=== PATIENT | female | born 1940 | race Caucasian/White ===

== ENCOUNTER 2020-11-25 13:20 | Emergency (ER) | payer MEDICARE, SELFPAY ==
--- NOTE | 2020-11-25 | ECG_ITS ---
Test Reason : DIZZINESS Blood Pressure : / mmHG Vent. Rate : 073 BPM Atrial Rate : 073 BPM P-R Int : 118 ms QRS Dur : 076 ms QT Int : 414 ms P-R-T Axes : -18 001 050 degrees QTc Int : 456 ms Normal sinus rhythm Nonspecific ST and T wave abnormality Abnormal ECG No previous ECGs available Referred By: Generic ED Physician Electronically Signed By:Alvin Arce
--- NOTE | ~2020-11-25 | CT_ITS ---
EXAMINATION: CT ABDOMEN AND PELVIS WITH CONTRAST CLINICAL INFORMATION: ausea, vomitting, diarrhea .SOB? Colitis? COMPARISON: None TECHNIQUE: Multidetector volumetric images were obtained from the superior aspect of the liver through the pubic symphysis following administration 85 mL of Omnipaque 350 intravenous contrast. Sagittal and coronal reformatted images were obtained on the technologist's workstation. Oral contrast: No This CT examination was performed using dose optimization techniques as appropriate, variously including the following: *Automated exposure control *Adjustment of mA and/or kV according to patient size (this includes techniques or standardized protocols for targeted exams where dose is matched to indication/reason for exam; i.e. extremities or head) *Use of iterative reconstruction technique DLP: 121 mGy-cm FINDINGS: LUNG BASES: The visualized lung bases are unremarkable. LIVER, GALLBLADDER, AND BILIARY TREE: The liver is normal in size, shape, and attenuation. Some tiny millimeter-sized hypodensities are seen in the liver most likely cysts but indeterminate because of their small size. No suspicious focal hepatic lesion or biliary ductal dilatation is present. The gallbladder is unremarkable with no evidence of radiopaque gallstones, gallbladder wall thickening, or obvious pericholecystic inflammatory changes. PANCREAS: Unremarkable. SPLEEN: Unremarkable. ADRENAL GLANDS: Unremarkable. KIDNEYS AND URETERS: The kidneys are normal in size, shape, and attenuation. Parapelvic cysts are noted in the lower pole the left kidney. No solid renal masses are seen. No hydronephrosis, hydroureter, or calculi seen. No perinephric stranding. BLADDER: Unremarkable. GASTROINTESTINAL TRACT: The bowel is grossly abnormal with edematous changes present in the cecum and right colon as well as thickening of distal ileal loops. Proximal jejunum appears normal. No evidence of bowel obstruction. No pneumatosis seen. No perienteric fluid collections or abscesses. No free intraperitoneal air ABDOMINAL WALL: No significant hernia is appreciated. LYMPH NODES: No retroperitoneal lymphadenopathy. VASCULAR: Severe atherosclerotic changes are present in the aorta and iliofemoral vessels. In the immediate infrarenal aorta, there is exuberant calcification seen which produces at least a 50% narrowing in the aortic lumen. No evidence of occlusion or emboli. The SMA, celiac and TAIWO are patent. Some mild eccentric plaque present in the SMA after its origin without stenosis. The portal venous system is patent. PELVIC VISCERA: Normal anteverted uterus is present. An abnormal adnexal mass is not seen. A small amount of free intraperitoneal fluid present in the cul-de-sac on the right. OSSEOUS STRUCTURES: Unremarkable. CT/CT abdomen pelvis w con IMPRESSION: 1. Edematous cecum and distal ileum consistent with enterocolitis. 2. Incidental note made of tiny probable hepatic cysts, parapelvic left renal cysts and severe aortic atherosclerotic changes.
--- NOTE | ~2020-11-25 | CT_ITS ---
EXAMINATION: CT ANGIOGRAM OF THE CHEST WITH AND WITHOUT CONTRAST (CT PULMONARY ANGIOGRAM FOR PE) CLINICAL INFORMATION: Reason for Exam positive troponin and vomiting. pmh of CA. PE? COMPARISON: None TECHNIQUE: Prior to contrast administration, noncontrast localization images were obtained. Subsequently, multidetector volumetric imaging was performed from the thoracic inlet to below the diaphragms following the administration of 85 mL Omnipaque 350 intravenous contrast. No contrast reaction reported Sagittal, coronal, and MIP oblique sagittal reformatted images were obtained on the CT workstation, uploaded to PACS, and reviewed. This CT examination was performed using dose optimization techniques as appropriate, variously including the following: *Automated exposure control *Adjustment of mA and/or kV according to patient size (this includes techniques or standardized protocols for targeted exams where dose is matched to indication/reason for exam; i.e. extremities or head) *Use of iterative reconstruction technique Total exam dose-length product 207 mGy-cm FINDINGS: QUALITY OF STUDY/CONTRAST BOLUS: Satisfactory. PULMONARY ARTERIES: No central or segmental pulmonary emboli. THORACIC AORTA: Calcific atherosclerotic changes present in the aorta without evidence of aneurysm or dissection. A two-vessel branching pattern is present with common origin to the innominate and left carotid. The great vessels are widely patent. Only a small portion of the abdominal aorta is visualized but there are extensive calcifications seen narrowing the lumen of the abdominal aorta just below the level of the takeoff of the right renal artery. LUNG: Multiple calcified granulomas are seen in the lungs. No focal consolidation, worrisome nodules or masses. PLEURA: No pleural effusion or pneumothorax. MEDIASTINUM: Normal heart size. The thyroid is small and heterogeneous. No pericardial effusion. No hilar or mediastinal lymphadenopathy. No evidence of septal bowing or right heart strain. CHEST WALL/AXILLA: No axillary or internal mammary lymphadenopathy. A left chest wall jugular port is present with its tip in the right atrium. The jugular vein and subclavian vein appear scarred around the catheter. OSSEOUS STRUCTURES: No acute or suspicious osseous abnormality. UPPER ABDOMEN: Unremarkable. No reflux of contrast into the hepatic veins to suggest elevated right heart pressures. CT/CT angio chest PE protocol IMPRESSION: 1. No evidence of pulmonary emboli 2. Incidental note made of calcified pulmonary granulomas, small heterogeneous thyroid, left chest wall port. VTE: negative
--- NOTE | ~2020-11-25 | XR_ITS ---
EXAMINATION: XR CHEST CLINICAL INFORMATION: port type COMPARISON: None TECHNIQUE: Frontal view of the chest was obtained. FINDINGS: The cardiac and mediastinal contours are normal. There may be a small calcified nodules in the right lateral midlung. There is question of small nodules at the left lung base overlying the cardiophrenic angle and left hemidiaphragm. The lungs are otherwise clear. There is no pleural effusion or pneumothorax. There is a left jugular port with tip projecting over the cavoatrial junction. This may be a dignity Port-A-Cath made by [employer]. Bony structures are unremarkable. XR/XR chest 1V IMPRESSION: Question pulmonary nodules. Left jugular port with tip projecting over the cavoatrial junction.
[2020-11-25 14:45] VITALS: BP 182/74; PULSE 76; RESP 18; TEMP 36.2; O2SAT 98; BMI 17.2
--- NOTE | 2020-11-25 16:06 | ED.GENADULT ---
HPI - General Adult General Chief complaint: Weakness Stated complaint: vomiting Time Seen by Provider: 11/25/20 15:58 Source: patient Mode of arrival: ambulatory Limitations: no limitations History of Present Illness HPI narrative: Patient presents to the ED for abdominal pain nausea and diarrhea the past 4 days. Patient has known history of stomach cancer and is being started on oral chemotherapy from [place]. Granddaughter states the patient always has abdominal pain. Related Data Previous Rx's Medication Instructions Recorded ciprofloxacin HCl 500 mg tablet 500 mg PO Q12H 7 Days #14 tab 11/25/20 metronidazole 500 mg tablet 500 mg PO Q12H 7 Days #14 tab 11/25/20 Allergies Allergy/AdvReac Type Severity Reaction Status Date / Time Penicillins Allergy Unknown Verified 11/25/20 15:00 Review of Systems Review of Systems: Yes all other systems are reviewed and are negative Constitutional: Constitutional: Reports as per HPI and Reports no additional constitutional complaints Eyes: Eyes: Reports as per HPI and Reports no additional eye complaints ENT: Reports system reviewed and no additional complaints, except as documented and Reports as per HPI Respiratory: Respiratory: Reports as per HPI and Reports no additional respiratory complaints Gastrointestinal: Gastrointestinal: Reports as per HPI, Reports no additional gastrointestinal complaints, Reports abdominal pain, Reports diarrhea and Reports nausea Genitourinary: Genitourinary: Reports no additional female genitourinary complaints and Reports as per HPI Musculoskeletal: Musculoskeletal: Reports no additional musculoskeletal complaints and Reports as per HPI Neurologic: Reports system reviewed and no additional complaints, except as documented and Reports as per HPI Comments: History of dementia as per granddaughter Psychiatric: Psychiatric: Reports no additional psychiatric complaints and Reports as per HPI [facility] Past Medical History Medical History (Updated 11/25/20 @ 22:26 by JOSUE Bryant) Cancer of stomach Hypertension Social History Social History Advance Directives: No Advance Directives Information Provided: Yes Physical Exam Vital Signs: Vital Signs: Last Vital Signs Temp 97.1 F 11/25/20 14:45 Pulse 73 11/25/20 22:21 Resp 16 11/25/20 22:21 BP 159/63 H 11/25/20 22:21 Pulse Ox 98 11/25/20 22:21 Body Mass Index 17.2 Const: General: cooperative, healthy appearing, comfortable, no acute distress, well developed, alert, awake and Physically active Orientation/consciousness: patient oriented x3 HENMT: Head: Yes normal to inspection, Yes No palpable skull fracture present, Yes normocephalic and Yes atraumatic Eyes: General: appearance normal, both eyes and all related structures Neck: Neck: Yes normal visual inspection, Yes full ROM, Yes no lymphadenopathy, Yes no meningeal signs, Yes trachea midline, Yes supple and No tender Chest: Chest palpation & inspection: normal inspection of the chest and normal palpation of entire chest wall Resp: Effort & Inspection: normal respiratory effort and able to speak in complete sentences Auscultation: clear to auscultation bilaterally Cardio: Jugular venous distension: no JVD Heart sounds: S1 normal heart sound present and S2 normal heart sound present GI: Inspection: Yes normal to inspection and No abdominal wall ecchymosis Palpation (GI): Soft to palpation, not firm, Tenderness to palpation present (GI) (Mild), no guarding and not rigid : General: No CVA tenderness and Yes no CVA tenderness Back/Spine/Pelvis: Back: no CVA tenderness, No CVA tenderness and No back tenderness Skin: General skin exam: no rashes or lesions noted and elasticity normal Neuro: General: patient oriented x3, gait normal, no meningeal signs and CN's II-XI intact bilaterally Cranial nerves: Yes CN's II-XII intact bilaterally Extrem: General: Yes normal to inspection and Yes full ROM Course Course Course Narrative: Patient will have labs medical workup including EKG and troponin. Most likely patient will be sent for CT scan. Reevaluation(s) Reevaluation #1: Patient troponin came back positive. Will add chest CT due to positive troponin and history of cancer to rule out PE. Patient denies any chest pain. Repeat troponin ordered. EKG negative for STEMI Time: 18:17 Reevaluation #2: Patient second troponin did not increase by 50%, so Patient is not any cardiac event. patient Chest CTA negative for PE. Abdomen shows colitis. Patient would be discharged with antibioics. Patient and daughter was asked for stool sample to check for C diff due to patient's chemo but patient could not give a sample. Patient and the staff informed follow-up PCP. Case discussed with Dr. Dennis agree with plan. Time: 22:22 Medical Decision Making MDM Narrative Medical decision making narrative: Colitis Lab Data Result diagrams: 11/25/20 17:10 11/25/20 17:10 Labs: Lab Results 11/25/20 11/25/20 11/25/20 Range/Units 16:09 17:10 17:10 WBC 6.3 (4.8-10.8) X10*3/uL RBC 3.64 L (4.20-5.50) X10*6/uL Hgb 11.7 L (12.0-16.0) g/dl Hct 35.0 L (37-47) % MCV 96.2 (80-98) fL MCH 32.1 (27.0-33.0) pg MCHC 33.4 (31.0-35.0) g/dl RDW 18.4 H (11.0-16.0) % Plt Count 204 (160-400) X10*3/uL MPV 9.5 (9.4-12.3) fL Immature Gran % (Auto) Cancelled Neut % (Auto) Cancelled Lymph % (Auto) Cancelled Humphreys % (Auto) Cancelled Eos % (Auto) Cancelled Baso % (Auto) Cancelled Lymph # (Auto) Cancelled Humphreys # (Auto) Cancelled Eos # (Auto) Cancelled Baso # (Auto) Cancelled Abs Immat Gran (auto) Cancelled Absolute Neuts (auto) Cancelled Absolute Nucleated RBC 0.000 (0.0-0.012) X10*3/uL Nucleated RBC % (auto) 0.0 (0.0-0.2) /100WBC Neutrophils % (Manual) 42 L (45-73) % Band Neutrophils % 17 H (3-5) % Lymphocytes % (Manual) 21 (20-40) % Monocytes % (Manual) 12 H (2-11) % Basophils % (Manual) 1 (0-1) % Metamyelocytes % 5 % Myelocytes % 2 % Abs Neuts (Manual) 3.7 (2.2-7.9) X10*3/uL Lymphocytes # (Manual) 1.3 (0.6-4.8) X10*3/uL Monocytes # (Manual) 0.8 (0.0-1.2) X10*3/uL Basophils # (Manual) 0.1 (0.0-0.3) X10*3/uL Metamyelocytes # 0.3 X10*3/uL Myelocytes # 0.1 X10*/uL Platelet Estimate NORMAL (NORMAL) Plt Morphology Comment NORMAL RBC Morphology NOTED Polychromasia 1+ (0-2) /OIF Microcytosis 1+ (5-14) /OIF Ovalocytes 1+ (5-14) /OIF [place] Cells 1+ (0-2) /OIF Acanthocytes (Spur) 1+ (0-2) /OIF PT (9.9-13.0) SEC INR (0.9-1.1) APTT (24.1-38.0) SEC Sodium 143 (135-145) mmol/L Potassium 3.7 (3.3-5.1) mmol/L Chloride 105 (96-108) mmol/L Carbon Dioxide 27 (22-29) mmol/L Anion Gap 15 (12-20) BUN 11 (9-16) mg/dL Creatinine 0.51 (0.5-1.4) mg/dL Estim Creat Clear Calc 55.3 Estimated GFR > 60 Random Glucose 86 (60-115) mg/dL Calcium 8.0 L (8.4-10.2) mg/dL Total Bilirubin 0.7 (0.0-1.0) mg/dL Direct Bilirubin 0.4 (0.0-0.5) mg/dL AST 35 H (5-31) U/L ALT 14 (0-31) U/L Alkaline Phosphatase 76 (39-117) U/L Troponin I High Sens (<3.5-17.0) ng/L Total Protein 5.3 L (6.5-8.0) g/dL Albumin 2.9 L (3.5-5.0) g/dL Lipase 48 (8-78) U/L Urine Color Urine Appearance Urine pH (5.0-8.0) Ur Specific [place] (1.005-1.025) Urine Protein (NEG-TRACE) MG/DL Urine Glucose (UA) (NEG) MG/DL Urine Ketones (NEG) MG/DL Urine Blood (NEG) Urine Nitrite (NEG) Ur Leukocyte Esterase (NEG) COVID-19 (CARLOS A) Negative (Negative) COVID-19 Clin Com See Note 11/25/20 11/25/20 11/25/20 Range/Units 17:10 17:10 18:31 WBC (4.8-10.8) X10*3/uL RBC (4.20-5.50) X10*6/uL Hgb (12.0-16.0) g/dl Hct (37-47) % MCV (80-98) fL MCH (27.0-33.0) pg MCHC (31.0-35.0) g/dl RDW (11.0-16.0) % Plt Count (160-400) X10*3/uL MPV (9.4-12.3) fL Immature Gran % (Auto) Neut % (Auto) Lymph % (Auto) Humphreys % (Auto) Eos % (Auto) Baso % (Auto) Lymph # (Auto) Humphreys # (Auto) Eos # (Auto) Baso # (Auto) Abs Immat Gran (auto) Absolute Neuts (auto) Absolute Nucleated RBC (0.0-0.012) X10*3/uL Nucleated RBC % (auto) (0.0-0.2) /100WBC Neutrophils % (Manual) (45-73) % Band Neutrophils % (3-5) % Lymphocytes % (Manual) (20-40) % Monocytes % (Manual) (2-11) % Basophils % (Manual) (0-1) % Metamyelocytes % % Myelocytes % % Abs Neuts (Manual) (2.2-7.9) X10*3/uL Lymphocytes # (Manual) (0.6-4.8) X10*3/uL Monocytes # (Manual) (0.0-1.2) X10*3/uL Basophils # (Manual) (0.0-0.3) X10*3/uL Metamyelocytes # X10*3/uL Myelocytes # X10*/uL Platelet Estimate (NORMAL) Plt Morphology Comment RBC Morphology Polychromasia /OIF Microcytosis /OIF Ovalocytes /OIF [place] Cells /OIF Acanthocytes (Spur) /OIF PT 12.6 (9.9-13.0) SEC INR 1.1 (0.9-1.1) APTT 28.4 (24.1-38.0) SEC Sodium (135-145) mmol/L Potassium (3.3-5.1) mmol/L Chloride (96-108) mmol/L Carbon Dioxide (22-29) mmol/L Anion Gap (12-20) BUN (9-16) mg/dL Creatinine (0.5-1.4) mg/dL Estim Creat Clear Calc Estimated GFR Random Glucose (60-115) mg/dL Calcium (8.4-10.2) mg/dL Total Bilirubin (0.0-1.0) mg/dL Direct Bilirubin (0.0-0.5) mg/dL AST (5-31) U/L ALT (0-31) U/L Alkaline Phosphatase (39-117) U/L Troponin I High Sens 36.6 H* (<3.5-17.0) ng/L Total Protein (6.5-8.0) g/dL Albumin (3.5-5.0) g/dL Lipase (8-78) U/L Urine Color YELLOW Urine Appearance HAZY Urine pH 6.5 (5.0-8.0) Ur Specific [place] 1.015 (1.005-1.025) Urine Protein NEG (NEG-TRACE) MG/DL Urine Glucose (UA) NEG (NEG) MG/DL Urine Ketones 40 (NEG) MG/DL Urine Blood NEG (NEG) Urine Nitrite NEG (NEG) Ur Leukocyte Esterase NEG (NEG) COVID-19 (CARLOS A) (Negative) COVID-19 Clin Com 11/25/20 Range/Units 20:23 WBC (4.8-10.8) X10*3/uL RBC (4.20-5.50) X10*6/uL Hgb (12.0-16.0) g/dl Hct (37-47) % MCV (80-98) fL MCH (27.0-33.0) pg MCHC (31.0-35.0) g/dl RDW (11.0-16.0) % Plt Count (160-400) X10*3/uL MPV (9.4-12.3) fL Immature Gran % (Auto) Neut % (Auto) Lymph % (Auto) Humphreys % (Auto) Eos % (Auto) Baso % (Auto) Lymph # (Auto) Humphreys # (Auto) Eos # (Auto) Baso # (Auto) Abs Immat Gran (auto) Absolute Neuts (auto) Absolute Nucleated RBC (0.0-0.012) X10*3/uL Nucleated RBC % (auto) (0.0-0.2) /100WBC Neutrophils % (Manual) (45-73) % Band Neutrophils % (3-5) % Lymphocytes % (Manual) (20-40) % Monocytes % (Manual) (2-11) % Basophils % (Manual) (0-1) % Metamyelocytes % % Myelocytes % % Abs Neuts (Manual) (2.2-7.9) X10*3/uL Lymphocytes # (Manual) (0.6-4.8) X10*3/uL Monocytes # (Manual) (0.0-1.2) X10*3/uL Basophils # (Manual) (0.0-0.3) X10*3/uL Metamyelocytes # X10*3/uL Myelocytes # X10*/uL Platelet Estimate (NORMAL) Plt Morphology Comment RBC Morphology Polychromasia /OIF Microcytosis /OIF Ovalocytes /OIF [place] Cells /OIF Acanthocytes (Spur) /OIF PT (9.9-13.0) SEC INR (0.9-1.1) APTT (24.1-38.0) SEC Sodium (135-145) mmol/L Potassium (3.3-5.1) mmol/L Chloride (96-108) mmol/L Carbon Dioxide (22-29) mmol/L Anion Gap (12-20) BUN (9-16) mg/dL Creatinine (0.5-1.4) mg/dL Estim Creat Clear Calc Estimated GFR Random Glucose (60-115) mg/dL Calcium (8.4-10.2) mg/dL Total Bilirubin (0.0-1.0) mg/dL Direct Bilirubin (0.0-0.5) mg/dL AST (5-31) U/L ALT (0-31) U/L Alkaline Phosphatase (39-117) U/L Troponin I High Sens 37.3 H* (<3.5-17.0) ng/L Total Protein (6.5-8.0) g/dL Albumin (3.5-5.0) g/dL Lipase (8-78) U/L Urine Color Urine Appearance Urine pH (5.0-8.0) Ur Specific [place] (1.005-1.025) Urine Protein (NEG-TRACE) MG/DL Urine Glucose (UA) (NEG) MG/DL Urine Ketones (NEG) MG/DL Urine Blood (NEG) Urine Nitrite (NEG) Ur Leukocyte Esterase (NEG) COVID-19 (CARLOS A) (Negative) COVID-19 Clin Com ECG Data Interpretation: Normal sinus rhythm. Ventricular rate 73. Pr interval 118 P care at 76. QTC 456. Negative STEMI Discharge Plan Discharge Clinical Impression: Colitis Patient Disposition: Home, Self-Care Instructions: Colitis (ED) Additional Instructions: Justice tomograf?a computarizada result? positiva para colitis. No puede darnos ayesha muestra para C diff. Consulte con justice m?dico de atenci?n primaria para que le josefa pruebas de C diff si contin?a teniendo diarrea. Se le mercedez? de saba con antibi?ticos. Regrese al servicio de urgencias si empeora el dolor abdominal, fiebre, escalofr?os, n?useas intratables, v?mitos, debilidad, mareos, dolor en el pecho, dificultad para respirar o cualquier otro s?ntoma preocupante. Prescriptions: New metronidazole 500 mg tablet 500 mg PO Q12H 7 Days Qty: 14 RF: 0 ciprofloxacin HCl 500 mg tablet 500 mg PO Q12H 7 Days Qty: 14 RF: 0 Interventions: ED Discharge Assessment Last Done: 11/25/20 23:06 Discharge Date/Time: 11/25/20 23:06 Print Language: Faroese
[2020-11-25 16:32] LABS: COVID-19 Test Negative (Negative); IDNOW Serial# 9DD0AD1C
[2020-11-25] MEDS: 0.9 % Sodium Chloride 1,000 ML 999 ML IV (17:14)
[2020-11-25] MEDS: Famotidine/PF 20 MG/2 ML VIAL IVPUSH (17:16)
[2020-11-25 17:17] LABS: Hemoglobin 11.7 g/dl (12.0-16.0); Mean Corpuscular HGB Conc 33.4 g/dl (31.0-35.0); Mean Corpuscular Hemoglobin 32.1 pg (27.0-33.0); Mean Corpuscular Volume 96.2 fL (80-98); Mean Platelet Volume 9.5 fL (9.4-12.3); Platelet Count 204 X10*3/uL (160-400); Red Blood Count 3.64 X10*6/uL (4.20-5.50); Red Cell Distribution Width 18.4 % (11.0-16.0); White Blood Count 6.3 X10*3/uL (4.8-10.8)
[2020-11-25 17:21] LABS: INTERNATIONAL NORM RATIO 1.1 (0.9-1.1); Prothrombin Time 12.6 SEC (9.9-13.0)
[2020-11-25 17:24] LABS: Partial Thromboplastin Time 28.4 SEC (24.1-38.0)
[2020-11-25 17:50] LABS: Alanine Aminotransferase 14 U/L (0-31); Albumin Level 2.9 g/dL (3.5-5.0); Alkaline Phosphatase 76 U/L (39-117); Anion Gap 15 (12-20); Aspartate Amino Transferase 35 U/L (5-31); Bilirubin Direct 0.4 mg/dL (0.0-0.5); Bilirubin Total 0.7 mg/dL (0.0-1.0); Blood Urea Nitrogen 11 mg/dL (9-16); Carbon Dioxide 27 mmol/L (22-29); Chloride 105 mmol/L (96-108); Creatinine Clr Calc Pharmacy 55.3; Estimated Glomerular Filt Rate > 60; Glucose Random 86 mg/dL (60-115); Lipase 48 U/L (8-78); Potassium 3.7 mmol/L (3.3-5.1); Sodium 143 mmol/L (135-145); Total Protein 5.3 g/dL (6.5-8.0); Troponin-I High Sensitivity 36.6 ng/L (<3.5-17.0)
[2020-11-25 18:07] LABS: Band Neutrophils Percent 17 % (3-5); Basophils Abs Manual 0.1 X10*3/uL (0.0-0.3); Basophils Percent Manual 1 % (0-1); Lymphocytes Absolute Manual 1.3 X10*3/uL (0.6-4.8); Lymphocytes Percent Manual 21 % (20-40); Metamyelocytes Absolute 0.3 X10*3/uL; Metamyelocytes Percent 5 %; Monocytes Absolute Manual 0.8 X10*3/uL (0.0-1.2); Monocytes Percent Manual 12 % (2-11); Myelocytes Absolute 0.1 X10*/uL; Myelocytes Percent 2 %; Neutrophils Absolute Manual 3.7 X10*3/uL (2.2-7.9); Neutrophils Percent Manual 42 % (45-73); RBC Morphology NOTED
[2020-11-25 18:08] LABS: Acanthocytes 1+ (0-2) /OIF; Burr Cells 1+ (0-2) /OIF; Microcytosis 1+ (5-14) /OIF; Ovalocytes 1+ (5-14) /OIF; Platelet Estimate NORMAL (NORMAL); Platelet Morphology Comment NORMAL; Polychromasia 1+ (0-2) /OIF
[2020-11-25 18:32] VITALS: BP 176/75; PULSE 88; RESP 18
[2020-11-25] MEDS: LORazepam 2 MG/ML VIAL 1 MG IVPUSH (18:36)
[2020-11-25 18:38] LABS: Glucose Urine UA NEG (NEG); Leukocyte Esterase Urine NEG (NEG); Nitrite Urine NEG (NEG); PH 6.5 (5.0-8.0); Specific Gravity - Urine 1.015 (1.005-1.025); Urine Blood NEG (NEG); Urine Ketones 40 MG/DL (NEG); Urine Protein NEG (NEG-TRACE)
[2020-11-25 18:44] LABS: Appearance Urine HAZY; Color Urine YELLOW
--- NOTE | 2020-11-25 19:09 | PC.NURSE ---
Pt off to CT on hospital bed at this time.
[2020-11-25] MEDS: iohexoL 350 MG/ML 100 ML INFUS..BTL IV (19:24)
[2020-11-25 20:24] VITALS: BP 151/64; PULSE 72; RESP 16; O2SAT 97
[2020-11-25 21:05] LABS: Troponin-I High Sensitivity 37.3 ng/L (<3.5-17.0)
--- NOTE | 2020-11-25 21:23 | PC.NURSE ---
Per PA, plan for CDiff specimen.
[2020-11-25 22:21] VITALS: BP 159/63; PULSE 73; RESP 16; O2SAT 98
--- NOTE | 2020-11-25 23:05 | PC.NURSE ---
Pt unable to provide stool sample. PA aware and agreeable to discharge.
== END 2020-11-25 23:06 | disposition home or self-care (01) ==
PROVIDERS: Physician Assistant; Emergency Provider Emergency Medicine Emergency Medical Services
DX: K52.9 Noninfective gastroenteritis and colitis, unspecified (principal); R53.1 Weakness; R10.9 Unspecified abdominal pain; Z79.899 Other long term (current) drug therapy; Z20.822 Contact with and (suspected) exposure to COVID-19
CPT/HCPCS: 36415; 71045; 71275; 74177; 80053; 80076; 81003; 82248; 83690; 84484; 85007; 85027; 85610; 85730; 87635; 93005; 96365; 96375; 99284; J2060; J2405; Q9967

== ENCOUNTER → 2021-01-09 13:04 | Outpatient (BNV) | payer MEDICARE, MEDICAID, SELFPAY | PROVIDERS: PCP Emergency Medicine; Visit Provider Internal Medicine | DX: C16.9 Malignant neoplasm of stomach, unspecified (principal); Z90.3 Acquired absence of stomach [part of]; Z92.21 Personal history of antineoplastic chemotherapy | CPT/HCPCS: 99203; 99213; 99214 ==

== ENCOUNTER → 2021-01-19 09:23 | Outpatient (BNVA) | payer MEDICARE, MEDICAID, SELFPAY | PROVIDERS: PCP Emergency Medicine; Referring Provider Emergency Medicine; Visit Provider Internal Medicine Gastroenterology | DX: Z85.028 Personal history of other malignant neoplasm of stomach (principal); K75.81 Nonalcoholic steatohepatitis (NASH) | CPT/HCPCS: 99202 ==

== ENCOUNTER 2021-03-06 09:19 | Outpatient (REF) | payer MEDICARE, MEDICAID, SELFPAY ==
--- NOTE | ~2021-03-06 | XR_ITS ---
EXAMINATION: THORACIC AND LUMBAR SPINE X-RAY CLINICAL INFORMATION: Pain COMPARISON: CT of the chest, abdomen and pelvis November 2020 TECHNIQUE: 3 views of the thoracic spine 5 views of the lumbar spine including bilateral oblique views FINDINGS: Thoracic spine: The bones appear osteopenic. Bone alignment is normal. No fracture or dislocation is seen. Disc spaces are normal. There is a left jugular Port-A-Cath with tip projecting over the cavoatrial junction. Paraspinal soft tissues are otherwise unremarkable. Lumbar spine: There is curvature of the lower lumbar spine to the left. Bone alignment is otherwise normal. Disc spaces are normal. There is lower lumbar spine facet arthritis. No pars defect is seen. There is evidence of atherosclerotic disease. There is postsurgical changes in the left upper quadrant in the region of the stomach. XR/XR thoracic spine 2V IMPRESSION: Thoracic spine: Osteopenia. Lumbar spine: Curvature of the lower lumbar spine to the left and facet arthritis.
--- NOTE | ~2021-03-06 | XR_ITS ---
EXAMINATION: THORACIC AND LUMBAR SPINE X-RAY CLINICAL INFORMATION: Pain COMPARISON: CT of the chest, abdomen and pelvis November 2020 TECHNIQUE: 3 views of the thoracic spine 5 views of the lumbar spine including bilateral oblique views FINDINGS: Thoracic spine: The bones appear osteopenic. Bone alignment is normal. No fracture or dislocation is seen. Disc spaces are normal. There is a left jugular Port-A-Cath with tip projecting over the cavoatrial junction. Paraspinal soft tissues are otherwise unremarkable. Lumbar spine: There is curvature of the lower lumbar spine to the left. Bone alignment is otherwise normal. Disc spaces are normal. There is lower lumbar spine facet arthritis. No pars defect is seen. There is evidence of atherosclerotic disease. There is postsurgical changes in the left upper quadrant in the region of the stomach. XR/XR lumbar spine 4V min IMPRESSION: Thoracic spine: Osteopenia. Lumbar spine: Curvature of the lower lumbar spine to the left and facet arthritis.
== END 2021-03-06 09:20 | disposition home or self-care (01) ==
LOC: HO.XRAY 09:19
PROVIDERS: PCP Internal Medicine; Visit Provider Internal Medicine
DX: M54.50 Low back pain, unspecified (principal)
CPT/HCPCS: 72070; 72110

== ENCOUNTER 2021-05-21 15:00 | Outpatient (RCR) | payer MEDICARE, OTHER, MEDICAID, SELFPAY | END 2021-05-21 17:29 | disposition home or self-care (01) | LOC: HO.PT 15:00 | PROVIDERS: Visit Provider Internal Medicine | DX: M54.50 Low back pain, unspecified (principal) | CPT/HCPCS: 97110; 97140; 97162 ==

== ENCOUNTER 2021-07-17 07:47 | Outpatient (REF) | payer MEDICARE, MEDICAID, SELFPAY ==
--- NOTE | ~2021-07-17 | CT_ITS ---
EXAMINATION: CT CHEST, ABDOMEN AND PELVIS WITH IV CONTRAST CLINICAL INFORMATION: Cancer follow-up. Surveillance. COMPARISON: Previous CT scan November 2020. TECHNIQUE: Axial images through the chest, abdomen and pelvis following oral and 85 mL Omnipaque 350 intravenous contrast. Sagittal and coronal instructions on the technologist workstation were performed. Patient dose 319 mGy-cm. Exam is limited due to motion artifact. FINDINGS: CHEST: There is a peripheral or subpleural heterogeneous, predominantly groundglass attenuation nodule in the left upper lobe measuring 5 x 10 mm axial image 18 series 5. This is stable. There are numerous small calcified nodules that are stable probably representing calcified granulomas. There is a left jugular port with tip projecting over the cavoatrial junction. The heart is upper normal in size. There is coronary artery calcification. The thoracic aorta is calcified but normal in caliber. There is a trace pericardial effusion. There is no pleural effusion or pleural thickening. No chest wall mass or enlarged axillary lymph nodes are seen. ABDOMEN AND PELVIS: The liver and gallbladder are normal. The spleen is normal. The pancreas is normal. The adrenal glands are normal. There are left renal peripelvic and cortical cysts. There is mild fullness of the right renal collecting system. The bladder is normal. There is stool seen in the colon. There is question of a small amount of wall thickening versus fluid in the right lower quadrant adjacent to the cecum and terminal ileum. Evaluation of this area is limited due to motion artifact. The appendix is not identified with certainty. Small and large bowel is otherwise normal. The stomach is normal. There is atherosclerotic disease. The uterus and adnexa are normal. No ascites or adenopathy is seen. There are degenerative changes of the spine. No fracture or suspicious bone lesion is seen. CT/CT abdomen pelvis w con IMPRESSION: Limited exam due to artifact from respiratory motion. Chest: Stable heterogeneous peripheral or subpleural left upper lobe nodule. Stable small calcified nodules probably representing calcified granulomas. Coronary artery calcification and atherosclerotic disease. Abdomen and pelvis: Left renal cyst. Question wall thickening versus adjacent fluid in the right lower quadrant involving the cecum or terminal ileum. This area is difficult to evaluate due to motion artifact. Stool throughout the colon. Atherosclerotic disease.
[2021-07-17] MEDS: iohexoL 350 MG/ML 100 ML INFUS..BTL IV (11:13)
== END 2021-07-17 07:48 | disposition home or self-care (01) ==
LOC: HO.CT 07:47
PROVIDERS: Visit Provider Internal Medicine
DX: Z85.028 Personal history of other malignant neoplasm of stomach (principal)
CPT/HCPCS: 71260; 74177; Q9967

== ENCOUNTER 2021-07-30 09:28 | Day surgery (SDC) | payer MEDICARE, MEDICAID, SELFPAY ==
--- NOTE | 2021-07-29 09:44 | HO.ANESPROP2 ---
Documented by User: Dana Mckeon NP 07/29/21 09:46 HPI - Anesthesia Eval Consult details Narrative: 81yo F for Upper Endoscopy and Colonoscopy s/p partial gastrectomy PMFSH Active Problems Active Problems: All Active Problems (Updated 03/06/21 @ 11:35 by Bridget Ansari, RN) History of gastric cancer (Chronic) Past Medical History Medical History Cancer of stomach Glaucoma High cholesterol Hypertension Family History Family History Daughter Breast cancer Brother Prostate cancer Mother Stomach cancer Surgical History Surgical History History of esophagogastroduodenoscopy (EGD) History of partial gastrectomy Social History Social History Are you a primary caregivers non medical to a significant other at home: No Do you presently have visiting nurse or other home services: No Alcohol intake: former Patient Tobacco Use Status: Former Tobacco user Quit Date: 2015 Meds Allergies Allergy/AdvReac Type Severity Reaction Status Date / Time Penicillins Allergy Severe anaphylax Verified 07/30/21 10:34 Home Medications Medication Instructions Recorded Confirmed Last Taken Type ezetimibe 10 mg tablet (Zetia) 10 mg PO DAILY 01/19/21 07/10/21 Unknown History latanoprost 0.005 % eye drops 1 drp OPHTHALMIC (EYE) DAILY 01/19/21 07/10/21 Unknown History losartan 25 mg tablet 25 mg PO DAILY 01/19/21 07/10/21 Unknown History tizanidine 2 mg tablet 2 mg PO Q12H PRN 03/11/21 07/10/21 Unknown History acetaminophen 600 mg PO DAILY PRN 07/10/21 07/10/21 Unknown History ondansetron 4 mg disintegrating 4 mg PO Q8H PRN 07/10/21 07/10/21 Unknown History tablet Exam Exam Date and Time: July 29, 2021 0944 Pertinent Lab Results Pertinent Lab Results: Laboratory Tests 07/10/21 07/10/21 11:14 11:14 WBC 7.0 Hgb 12.1 Hct 37.3 Plt Count 249 Sodium 141 Potassium 4.7 D Chloride 104 Carbon Dioxide 28 BUN 21 H Creatinine 0.61 Narrative Narrative: EKG 11/2020 Vent. Rate : 073 BPM ? ? Atrial Rate : 073 BPM ?? P-R Int : 118 ms? QRS Dur : 076 ms ? ? QT Int : 414 ms ? ? ? P-R-T Axes : -18 001 050 degrees ?? QTc Int : 456 ms ? Normal sinus rhythm Nonspecific ST and T wave abnormality Abnormal ECG No previous ECGs available Assessment and Plan Assessment Anesthesia Assessment: Chart Reviewed Documented by User: Jerad Almanza MD 07/30/21 16:49 PMFSH Past Medical History Medical History Cancer of stomach Glaucoma High cholesterol Hypertension Family History Family History Daughter Breast cancer Brother Prostate cancer Mother Stomach cancer Family history of problems with anesthesia: No Surgical History Surgical History History of esophagogastroduodenoscopy (EGD) History of partial gastrectomy History of Problems with Anesthesia: Yes (Delayed emergence ) Social History Social History Are you a primary caregivers non medical to a significant other at home: No Do you presently have visiting nurse or other home services: No Alcohol intake: former Patient Tobacco Use Status: Former Tobacco user Quit Date: 2015 Meds Allergies Allergy/AdvReac Type Severity Reaction Status Date / Time Penicillins Allergy Severe anaphylax Verified 07/30/21 10:34 Home Medications Medication Instructions Recorded Confirmed Last Taken Type ezetimibe 10 mg tablet (Zetia) 10 mg PO DAILY 01/19/21 07/10/21 Unknown History latanoprost 0.005 % eye drops 1 drp OPHTHALMIC (EYE) DAILY 01/19/21 07/10/21 Unknown History losartan 25 mg tablet 25 mg PO DAILY 01/19/21 07/10/21 Unknown History tizanidine 2 mg tablet 2 mg PO Q12H PRN 03/11/21 07/10/21 Unknown History acetaminophen 600 mg PO DAILY PRN 07/10/21 07/10/21 Unknown History ondansetron 4 mg disintegrating 4 mg PO Q8H PRN 07/10/21 07/10/21 Unknown History tablet Exam Airway Mallampati Class: III TM Dist: >3cm Neck ROM: Full Denture: Upper and Lower Loose/Missing/Broken Teeth: Yes Heart: rrr Lungs: bl breath sounds Assessment and Plan Assessment Anesthesia Assessment: Anesthesia Plan Discussed Final Anesthetic Review Family History of Problems with Anesthesia: No History of Problems with Anesthesia: Yes (Delayed emergence ) NPO: Yes ASA Class: III Final Preanesthetic Review: No Changes in Pt Med Stat, Meds/Allgs Chart Reviewed, Consent Obtained/Reviewed and Anes Risks/Benef Reviewed Patient Risk: High Procedure Risk: Intermediate Anesthetic Plan Anesthetic Plan: MAC: Disposition: Standard PACU
[2021-07-30 10:15] VITALS: BMI 16.1; BMI 23.5
--- NOTE | 2021-07-30 10:17 | MHC.SHP ---
Pre-Procedural Eval Section A Date of Service: 07/30/21 Section B Chief Complaint: hx of malignant neoplasm of stomach Details of Present Illness: also hx of incomplete colonoscopy and abdominal pain Relevant Family History (Specify if Yes): No Relevant Social History: None Present Medications: see Short Stay Collaborative assessment Medical History: Significant History (Cancer of stomach Glaucoma High cholesterol Hypertension) History of Previous Operations: Relevant previous surgery/procedure and date(s) (partial gastrectomy ) Allergies: Allergies Allergy/AdvReac Type Severity Reaction Status Date / Time Penicillins Allergy Severe Swelling Verified 03/11/21 13:39 Review of Systems Sugical H&P ROS: Negative: Constitution, Cardiovascular, Respiratory, Neurological, Psychiatric, Hem-Onc, Allergic/Immunologic, Gastrointestinal, Genitourinary, Musculoskeletal, Integumentary, Endocrine and Eyes/Ears/Nose/Throat Exam Surgical H&P Exam: Normal: HEENT, Normal: Heart, Normal: Lungs, Normal: Extremities, Normal: Abdomen, Normal: Skin and Normal: Neurological Plan Diagnosis/Plan: Unchanged I have reviewed the history and physical and performed a pertinent physical examination on my patient. No changes have occurred unless specified.
[2021-07-30 10:27] VITALS: BP 151/62; PULSE 67; RESP 18; TEMP 36.4; O2SAT 98
--- NOTE | 2021-07-30 10:29 | P.BOP_ITS ---
Brief Operative Note Date of Service: 07/30/21 Pre-op diagnosis: HX of gastric cancer Post-op diagnosis: same Procedure: see op note Surgeon: Kailee Hutchinson MD Anesthesia: MAC Was an Puppy Walker used for this Procedure?: No Estimated blood loss (mL): 0 Condition: stable Disposition: PACU
--- NOTE | 2021-07-30 10:37 | P.OP_ITS ---
Operative Note Operative Note Date of Service: 07/30/21 Narrative: Operative Information Procedure Description: EGD, Colonoscopy Indication: Hx of gastric cancer, abdominal pain and incomplete colonoscopy in [place] Anesthesia: MAC FLEXIBLE TRANSORAL UPPER GASTROINTESTINAL ENDOSCOPY AND COLONOSCOPY PROCEDURE NOTE UPPER ENDOSCOPY Consent: Indications for the procedure and potential complications of bleeding, perforation, reaction to medications and missed diagnosis were discussed with the patient and informed consent was obtained. Instrument: Olympus GIF H 190 J mid size upper endoscope Monitoring: Vital signs and clinical assessment, continuous EKG monitoring, Pulse oximetry, Carbon Dioxide monitoring and blood pressure monitoring were done throughout the procedure. Procedure: The patient was placed in the left lateral decubitis position and pre-procedure medications were administered and a bite block was placed. The endoscope was inserted into the mouth and advanced under direct vision to the third part of duodenum. A careful inspection was made as the upper endoscope was withdrawn including a retroflexed examination of the proximal stomach; Findings and interventions are described below. Findings: Larynx:normal Esophagus: GE junction at 35 cm, diaphragm hiatus at 35 cm, normal mucosa Stomach: Scarred and atrophied mucosa. Biopsies were obtained from antrum, greater and lesser curves, fundus. At the angularis was a suspicious area of induration and depression with boggy and edematous surrounding tissue, Biopsies were taken Grade 2 flap valve on retroflexed examination of the cardia. Psot surgical changes appeared to be present, stomach had a strange angulation Duodenum: Normal bulb and descending duodenum, bx taken Intervention: Biopsies as noted above COLONOSCOPY Instrument: Olympus variable stiffness pediatric scope 190L Colonoscopy Monitoring: Vital signs and clinical assessment, continuous EKG monitoring, Pulse oximetry, Carbon Dioxide monitoring and blood pressure monitoring were done throughout the procedure. Colon withdrawal time was 6 minutes. Procedure: The patient was placed in the left lateral decubitis position and pre-procedure medications were administered. After a digital rectal examination of the ano-rectum, the video colonoscope was inserted into the rectum and advanced through the colon to the cecum/TI. The colonoscope was slowly withdrawn in a retrograde panoramic fashion and the colon mucosa was carefully examined including a retroflexed view of the rectum. Findings and interventions are described below. Procedure Difficulty:moderate, due to stiff and angulated colon Findings: Terminal Ileum-normal Cecum:normal Ascending Colon: 4-5 mm sessile polyp removed with cold forceps Transverse Colon -normal Descending Colon:normal Sigmoid Colon: normal Rectum: Retroflexion with small internal hemorrhoids, grade I Anorectum - normal Colon preparation: [place] Bowel Preparation Scale Right colon; 2 Transverse colon: 3 Left colon; 3 (0 = Unprepared colon segment with mucosa not seen due to solid stool that cannot be cleared. 1 = Portion of mucosa of the colon segment seen, but other areas of the colon segment not well seen due to staining, residual stool and/or opaque liquid. 2 = Minor amount of residual staining, small fragments of stool and/or opaque liquid, but mucosa of colon segment seen well. 3 = Entire mucosa of colon segment seen well with no residual staining, small fragments of stool or opaque liquid) Impression and Post Procedure Diagnosis: Endoscopy Findings: atrophic gastritis possible recurrence of gastric cancer Colonoscopy Findings: internal hemorrhoids colon polyp Plan: Await Pathology results Repeat Colonoscopy for screening not indicated given age and co morbidities. High fiber diet leaflet avoid straining at stool, epsom salts and sitz bath, anusol supps or cream if H pylori pos then treat Above findings were reviewed with the patient and relevant handouts were provided if indicated.
[2021-07-30] MEDS: Lactated Ringers 1,000 ML 100 ML IVCONT (10:50)
[2021-07-30 11:45] VITALS: BP 106/46; PULSE 78; RESP 16; TEMP 36.2; O2SAT 99
[2021-07-30 12:01] VITALS: BP 116/55; PULSE 68; RESP 17; O2SAT 100
[2021-07-30 12:14] VITALS: BP 128/59; PULSE 68; RESP 18; TEMP 36.1; O2SAT 100
== END 2021-07-30 13:00 ==
LOC: HO.SSS 09:28
PROVIDERS: PCP Internal Medicine; Visit Provider Internal Medicine Gastroenterology
PROC: (CPT 45380; principal; 2021-07-30 10:50)
DX: R10.9 Unspecified abdominal pain (principal); Z85.028 Personal history of other malignant neoplasm of stomach; D12.2 Benign neoplasm of ascending colon; K64.0 First degree hemorrhoids; C16.9 Malignant neoplasm of stomach, unspecified; K29.50 Unspecified chronic gastritis without bleeding; Z90.3 Acquired absence of stomach [part of]; Z92.21 Personal history of antineoplastic chemotherapy; K44.9 Diaphragmatic hernia without obstruction or gangrene; I10 Essential (primary) hypertension; E78.00 Pure hypercholesterolemia, unspecified; H40.9 Unspecified glaucoma; Z79.899 Other long term (current) drug therapy; Z88.0 Allergy status to penicillin; Z87.891 Personal history of nicotine dependence
CPT/HCPCS: 45380; 43239; 88305; 88342; 88360; J3010

== ENCOUNTER 2021-08-06 11:58 | Outpatient (REF) | payer MEDICARE, MEDICAID, SELFPAY ==
[2021-08-06 13:05] LABS: Anion Gap 12 (12-20); Blood Urea Nitrogen 16 mg/dL (9-16); Calcium 9.1 mg/dL (8.4-10.2); Carbon Dioxide 26 mmol/L (22-29); Chloride 105 mmol/L (96-108); Estimated Glomerular Filt Rate > 60; Glucose Random 109 mg/dL (60-115); Potassium 4.2 mmol/L (3.3-5.1); Sodium 139 mmol/L (135-145)
[2021-08-06 13:30] LABS: Thyroid Stimulating Hormone 1.54 uIU/mL (0.32-4.0)
[2021-08-06 13:38] LABS: Folate 19.1 ng/mL (> or = 4.0); Vitamin B12 304 pg/mL (200-900)
== END 2021-08-06 11:59 | disposition home or self-care (01) ==
LOC: HO.LAB 11:58
PROVIDERS: PCP Internal Medicine; Visit Provider Psychiatry & Neurology Neurology
DX: G30.9 Alzheimer's disease, unspecified (principal)
CPT/HCPCS: 36415; 80048; 82607; 82746; 84443

== ENCOUNTER 2021-08-12 12:29 | Outpatient (REF) | payer MEDICARE, MEDICAID, SELFPAY ==
--- NOTE | ~2021-08-12 | CT_ITS ---
EXAMINATION: CT HEAD WITHOUT CONTRAST CLINICAL INFORMATION: Alzheimer's disease COMPARISON: None TECHNIQUE: Contiguous axial imaging was performed from the skull base to vertex without intravenous administration of contrast. This CT examination was performed using dose optimization techniques as appropriate, variously including the following: *Automated exposure control *Adjustment of mA and/or kV according to patient size (this includes techniques or standardized protocols for targeted exams where dose is matched to indication/reason for exam; i.e. extremities or head) *Use of iterative reconstruction technique DLP: 740 mGy-cm FINDINGS: There is no evidence of an extra-axial collection. There is no evidence of intra-axial or axial hemorrhage. The ventricles and extra-axial CSF spaces are appropriate. There is mild nonspecific periventricular white matter disease. No mass, mass effect or infarct is seen. There is left maxillary, ethmoid and frontal sinus disease. There is underaeration of the right mastoid air cells compared to the left. There is benign frontal hyperostosis. CT/CT head/brain wo con IMPRESSION: No acute intracranial findings. Mild nonspecific periventricular white matter disease. Left sinus disease.
== END 2021-08-12 12:30 | disposition home or self-care (01) ==
LOC: HO.CT 12:29
PROVIDERS: PCP Internal Medicine; Visit Provider Psychiatry & Neurology Neurology
DX: G30.9 Alzheimer's disease, unspecified (principal)
CPT/HCPCS: 70450

== ENCOUNTER 2021-08-20 10:20 | Day surgery (SDC) | payer MEDICARE, MEDICAID, SELFPAY ==
--- NOTE | 2021-08-19 12:12 | P.CONAN_ITS ---
Documented by User: Dana Mckeon NP 08/19/21 12:15 HPI - Anesthesia Eval Consult details Narrative: 81yo F for Upper Endoscopy s/p partial gastrectomy d/t gastric CA s/p EGD and colo 07/30/21 with MAC (needs urgent repeat EGD for larger pathology specimen) PMFSH Active Problems Active Problems: All Active Problems (Updated 03/06/21 @ 11:35 by Bridget Ansari RN) History of gastric cancer (Chronic) Past Medical History Medical History Cancer of stomach Glaucoma High cholesterol Hypertension Family History Family History Daughter Breast cancer Brother Prostate cancer Mother Stomach cancer Family history of problems with anesthesia: No Surgical History Surgical History History of esophagogastroduodenoscopy (EGD) History of partial gastrectomy Hx of colonoscopy History of Problems with Anesthesia: Yes (Delayed emergence ) Social History Social History Are you a primary hospice care sales consultant to a significant other at home: No Do you presently have visiting nurse or other home services: No Alcohol intake: former Patient Tobacco Use Status: Former Tobacco user Quit Date: 7yrs ago Use of substances other than those prescribed or required for medical reasons: No Are you DNR?: No Advance Directives: No Advance Directives Information Provided: Yes Meds Allergies Allergy/AdvReac Type Severity Reaction Status Date / Time Penicillins Allergy Severe anaphylax Verified 08/20/21 11:15 Home Medications Medication Instructions Recorded Confirmed Last Taken Type ezetimibe 10 mg tablet (Zetia) 10 mg PO DAILY 01/19/21 07/10/21 Unknown History latanoprost 0.005 % eye drops 1 drp OPHTHALMIC (EYE) DAILY 01/19/21 07/10/21 Unknown History losartan 25 mg tablet 25 mg PO DAILY 01/19/21 07/10/21 08/20/21 08:00 History tizanidine 2 mg tablet 2 mg PO Q12H PRN 03/11/21 07/10/21 Unknown History acetaminophen 600 mg PO DAILY PRN 07/10/21 07/10/21 Unknown History ondansetron 4 mg disintegrating 4 mg PO Q8H PRN 07/10/21 07/10/21 Unknown History tablet amlodipine 5 mg tablet 1 tab PO DAILY 08/20/21 08/20/21 08/20/21 08:00 History Exam Exam Date and Time: August 19, 2021 1212 Pertinent Lab Results Pertinent Lab Results: Laboratory Tests 07/10/21 08/06/21 11:14 12:17 WBC 7.0 Hgb 12.1 Hct 37.3 Plt Count 249 Sodium 139 Potassium 4.2 Chloride 105 Carbon Dioxide 26 BUN 16 Creatinine 0.65 Narrative Narrative: EKG 11/2020 Vent. Rate : 073 BPM ? ? Atrial Rate : 073 BPM ?? P-R Int : 118 ms? QRS Dur : 076 ms ? ? QT Int : 414 ms ? ? ? P-R-T Axes : -18 001 050 degrees ?? QTc Int : 456 ms ? Normal sinus rhythm Nonspecific ST and T wave abnormality Abnormal ECG No previous ECGs available Assessment and Plan Assessment Anesthesia Assessment: Chart Reviewed Final Anesthetic Review Family History of Problems with Anesthesia: No History of Problems with Anesthesia: Yes (Delayed emergence ) Documented by User: Maddsion Botello MD 08/20/21 12:15 [facility] Past Medical History Medical History Cancer of stomach Glaucoma High cholesterol Hypertension Functional capacity: independent ambulation Patient : No Family History Family History Daughter Breast cancer Brother Prostate cancer Mother Stomach cancer Surgical History Surgical History History of esophagogastroduodenoscopy (EGD) History of partial gastrectomy Hx of colonoscopy Social History Social History Are you a primary hospice care sales consultant to a significant other at home: No Do you presently have visiting nurse or other home services: No Alcohol intake: former Patient Tobacco Use Status: Former Tobacco user Quit Date: 7yrs ago Use of substances other than those prescribed or required for medical reasons: No Are you DNR?: No Advance Directives: No Advance Directives Information Provided: Yes Meds Allergies Allergy/AdvReac Type Severity Reaction Status Date / Time Penicillins Allergy Severe anaphylax Verified 08/20/21 11:15 Home Medications Medication Instructions Recorded Confirmed Last Taken Type ezetimibe 10 mg tablet (Zetia) 10 mg PO DAILY 01/19/21 07/10/21 Unknown History latanoprost 0.005 % eye drops 1 drp OPHTHALMIC (EYE) DAILY 01/19/21 07/10/21 Unknown History losartan 25 mg tablet 25 mg PO DAILY 01/19/21 07/10/21 08/20/21 08:00 History tizanidine 2 mg tablet 2 mg PO Q12H PRN 03/11/21 07/10/21 Unknown History acetaminophen 600 mg PO DAILY PRN 07/10/21 07/10/21 Unknown History ondansetron 4 mg disintegrating 4 mg PO Q8H PRN 07/10/21 07/10/21 Unknown History tablet amlodipine 5 mg tablet 1 tab PO DAILY 08/20/21 08/20/21 08/20/21 08:00 History Exam Airway Mallampati Class: II Neck ROM: Full Heart: RRR Lungs: CTA Assessment and Plan Final Anesthetic Review ASA Class: II Final Preanesthetic Review: No Changes in Pt Med Stat, Meds/Allgs Chart Reviewed, Consent Obtained/Reviewed and Anes Risks/Benef Reviewed Patient Risk: Low Procedure Risk: Low Anesthetic Plan Anesthetic Plan: MAC: Disposition: Standard PACU
[2021-08-20 11:08] VITALS: BMI 20.9
[2021-08-20 11:22] VITALS: BP 148/58; PULSE 61; RESP 16; TEMP 36.3; O2SAT 97
[2021-08-20] MEDS: Lactated Ringers 1,000 ML 100 ML IVCONT (11:35)
--- NOTE | 2021-08-20 12:44 | P.HPSUR_ITS ---
Pre-Procedural Eval Section A Date of Service: 08/20/21 Section B Chief Complaint: neoplasm of stomach Details of Present Illness: needs tissue samples for diagnosis Relevant Family History (Specify if Yes): No Relevant Social History: None Present Medications: see Short Stay Collaborative assessment Medical History: Significant History (Cancer of stomach Glaucoma High cholester ol Hypertension) History of Previous Operations: Relevant previous surgery/procedure and date(s) (History of esophagogastroduodenoscopy (EGD) History of partial gastrectomy Hx of colonoscopy) Allergies: Allergies Allergy/AdvReac Type Severity Reaction Status Date / Time Penicillins Allergy Severe anaphylax Verified 08/20/21 11:15 Review of Systems Sugical H&P ROS: Negative: Constitution, Cardiovascular, Respiratory, Neurological, Psychiatric, Hem-Onc, Allergic/Immunologic, Gastrointestinal, Genitourinary, Musculoskeletal, Integumentary, Endocrine and Eyes/Ears/Nose/Throat Exam Surgical H&P Exam: Normal: HEENT, Normal: Heart, Normal: Lungs, Normal: Extremities, Normal: Abdomen, Normal: Skin and Normal: Neurological Plan Diagnosis/Plan: Unchanged I have reviewed the history and physical and performed a pertinent physical examination on my patient. No changes have occurred unless specified.
--- NOTE | 2021-08-20 12:46 | P.BOP_ITS ---
Brief Operative Note Date of Service: 08/20/21 Pre-op diagnosis: hx of gastric cancer needs tissue samples Post-op diagnosis: same Procedure: see op note Surgeon: Kailee Hutchinson MD Anesthesia: MAC Was an Art Psychotherapist Or Therapist used for this Procedure?: No Estimated blood loss (mL): 0 Condition: stable Disposition: PACU
--- NOTE | 2021-08-20 12:48 | W.PM.OPN ---
Operative Note Operative Note Date of Service: 08/20/21 Narrative: Procedure Description: EGD Indication: gastric cancer Anesthesia: MAC FLEXIBLE TRANSORAL UPPER GASTROINTESTINAL ENDOSCOPY UPPER ENDOSCOPY Consent: Indications for the procedure and potential complications of bleeding, perforation, reaction to medications and missed diagnosis were discussed with the patient and informed consent was obtained. Instrument: Olympus GIF H 190 J mid size upper endoscope Monitoring: Vital signs and clinical assessment, continuous EKG monitoring, Pulse oximetry, Carbon Dioxide monitoring and blood pressure monitoring were done throughout the procedure. Procedure: The patient was placed in the left lateral decubitis position and pre-procedure medications were administered and a bite block was placed. The endoscope was inserted into the mouth and advanced under direct vision to the third part of duodenum. A careful inspection was made as the upper endoscope was withdrawn including a retroflexed examination of the proximal stomach; Findings and interventions are described below. Findings: Larynx:normal Esophagus: GE junction at 35? cm, diaphragm hiatus at 35 cm, normal mucosa Stomach: Scarred and atrophied mucosa. At the angularis was a suspicious area of induration and depression with boggy and edematous surrounding tissue as noted before, Biopsies were taken for further testing as requested by oncology. Grade 2 flap valve on retroflexed examination of the cardia. There was a large amount of food in the stomach suggestive of gastroparesis. Duodenum: Normal bulb and descending duodenum, Intervention: Biopsies as noted above Impression/Findings: Gastric cancer gastroparesis PLAN: Gastroparesis diet Will await bx, may need to repeat EGD if smaples not good as views were poor due to food debris and next time clears day before
[2021-08-20 13:10] VITALS: BP 101/41; PULSE 65; RESP 16; TEMP 36.3; O2SAT 98
[2021-08-20 13:25] VITALS: BP 124/55; PULSE 67; RESP 16; TEMP 37.1; O2SAT 98
--- NOTE | 2021-08-20 14:06 | HO.POSTANES ---
Post Anesthesia Evaluation Post Anesthesia Evaluation Vital Signs: Vital Signs Temp Pulse Resp BP Pulse Ox 08/20/21 13:25 98.7 F 67 16 124/55 L 98 08/20/21 13:10 97.4 F 65 16 101/41 L 98 08/20/21 11:22 97.3 F 61 16 148/58 H 97 Anesthesia: Monitored Mental Status: Awake Pain Control: Satisfactory Nausea/Vomiting: None Hydration: Adequate Anesthesia-Related Issues: No Anes. Related Issues
== END 2021-08-20 13:45 | disposition home or self-care (01) ==
PROVIDERS: PCP Internal Medicine; Visit Provider Internal Medicine Gastroenterology
PROC: 0DJ08ZZ Inspection of Upper Intestinal Tract, Via Natural or Artificial Opening Endoscopic (ICD-10-PCS; CPT 43235; principal; 2021-08-20 12:40)
DX: C16.9 Malignant neoplasm of stomach, unspecified (principal); K31.84 Gastroparesis; K44.9 Diaphragmatic hernia without obstruction or gangrene; Z85.028 Personal history of other malignant neoplasm of stomach; Z90.3 Acquired absence of stomach [part of]; Z92.21 Personal history of antineoplastic chemotherapy; I10 Essential (primary) hypertension; E78.00 Pure hypercholesterolemia, unspecified; Z79.899 Other long term (current) drug therapy; Z88.0 Allergy status to penicillin; Z87.891 Personal history of nicotine dependence
CPT/HCPCS: 43239; 36415; 88305; 88341; 88342; 88360

== ENCOUNTER → 2021-09-07 12:28 | Outpatient (BNVA) | payer MEDICARE, SELFPAY | PROVIDERS: PCP Internal Medicine; Referring Provider Internal Medicine; Visit Provider Internal Medicine Gastroenterology | DX: Z85.028 Personal history of other malignant neoplasm of stomach (principal) | CPT/HCPCS: 99212 ==

== ENCOUNTER 2022-01-19 10:36 | Outpatient (REF) | payer OTHER, SELFPAY ==
--- NOTE | ~2022-01-19 | PE_ITS ---
EXAMINATION: Fluorine-18 FDG PET/CT Scan CLINICAL INDICATION: Subsequent treatment management. Malignant neoplasm of stomach, restaging. PROCEDURE: 78 minutes following the intravenous administration of 17.0 mCi of fluorine 18 FDG, images from the base of the skull to the mid thighs were obtained using a combined PET/CT scanner with CT scan based attenuation correction. No oral contrast was administered. No intravenous contrast was administered. Transverse, coronal, sagittal, and volume reconstruction projections were obtained. The patient's blood glucose as determined by a finger stick, was 91 mg/dl immediately prior to injection. Total CT exam dose-length product 175.07 mGy-cm * These CT images were obtained using dose optimization techniques as appropriate, variously including the following: Automated exposure control * Adjustment of mA and/or kV according to patient size (this includes techniques or standardized protocols for targeted exams where dose is matched to indication/reason for exam; i.e. extremities or head) * Use of iterative reconstruction technique COMPARISON: The previous PET CT scan dated 09/14/2021 is available for comparison. FINDINGS: (Slice numbers described in this report are numbered superiorly to inferiorly with slice #1 in the head) NECK AND VISUALIZED HEAD: No foci of abnormal FDG activity are noted. The distribution of FDG activity is physiological. There is no cervical lymphadenopathy. THORAX: There is a focus of mildly increased FDG activity in the peribronchial region adjacent to the margin of the right middle lobe bronchus. This shows SUVmax 4.1, slice 72/223. This cannot be from adjacent vascular structures on these nondiagnostic CT images performed without intravenous contrast. It is unchanged in appearance from the 09/14/[address] scan when this showed SUVmax 3.9. No additional foci of abnormal FDG activity are present in the chest. There is some apical scarring bilaterally with no associated abnormal FDG activity and unchanged from 09/14/[address] scan there is a subcentimeter pleural-based focus of scarring or atelectasis posterolaterally in the left upper lobe, slice 59/223, too small to be characterized on the FDG PET images and unchanged in appearance from 09/14/2021. A few additional small subcentimeter nodules are visualized, such as a lateral subpleural 0.3 cm left upper lobe nodule, slice 64/223 a cluster of several subcentimeter nodules anterolaterally in the right upper lobe centered around slice 77/223. All these are too small be characterized on the FDG PET images and are unchanged in appearance from 09/14/2021. There are no additional foci of abnormal FDG activity in the chest. There is no mediastinal, supraclavicular, or axillary lymphadenopathy. A left-sided chest port with internal jugular catheter terminating in the superior vena cava is noted. ABDOMEN AND PELVIS: There is a focus of increased FDG activity in the lesser curvature of the stomach, SUVmax 6.5, slice 106/223. This is associated with some subtle wall thickening and appears to be adjacent to a suture line. There is FDG avid focus was present on the prior 09/14/[address] scan and was significantly more intense, previously showing SUVmax 9.8. There are no additional foci of abnormal FDG activity in the abdomen or pelvis. There is FDG activity throughout the gastrointestinal tract without no additional suspicious focal component and likely physiological. Is diverticulosis without evidence of diverticulitis, hollow viscera are otherwise unremarkable. The liver, gallbladder, spleen, kidneys, adrenal glands and pancreas appear unremarkable. The pelvic organs are unremarkable. There is no retroperitoneal, mesenteric, pelvic or inguinal lymphadenopathy. MUSCULOSKELETAL: There are no suspicious foci of increased FDG activity in the osseous structures. There are degenerative changes in the spine but no suspicious sclerotic or lytic lesions are visualized. VASCULAR: Diffuse vascular calcifications including some coronary calcifications are present. PET/PET CT fusion skull to thigh IMPRESSION: 1. A focus of FDG activity in the lesser curvature of the stomach is noted as described above. This is significantly less intense than on the previous PET CT scan and this is evidence of a partial metabolic response to therapy. 2. Scattered subcentimeter pulmonary nodules are present, unchanged from the prior study and too small to be characterized on the FDG PET images. Continued monitoring of these with diagnostic CT imaging in 9-12 months is recommended. 3. No additional abnormalities suspicious for metastatic or other malignant lesions are noted. 4. Vascular calcifications including some coronary calcifications.
== END 2022-01-19 10:37 | disposition home or self-care (01) ==
LOC: HO.PET 10:36
PROVIDERS: Visit Provider Internal Medicine
DX: Z13.89 Encounter for screening for other disorder (principal)

== ENCOUNTER → 2022-01-25 09:59 | Outpatient (BNVA) | payer OTHER, SELFPAY | PROVIDERS: PCP Internal Medicine; Visit Provider Internal Medicine Gastroenterology | DX: M79.18 Myalgia, other site (principal); Z85.028 Personal history of other malignant neoplasm of stomach | CPT/HCPCS: 99212 ==

== ENCOUNTER 2022-02-23 11:31 | Day surgery (SDC) | payer OTHER, SELFPAY ==
[2022-02-18 12:09] VITALS: BMI 27.6
--- NOTE | 2022-02-22 12:50 | P.CONAN_ITS ---
Documented by User: Dana Mckeon NP 02/22/22 13:00 HPI - Anesthesia Eval Consult details Narrative: 82yo F for Upper Endoscopy s/p EGD 07/2021 with MAC stomach ca s/p partial gastrectomy 2020 [facility] Active Problems Active Problems: All Active Problems (Updated 02/18/22 @ 12:07 by Bridget Ansari RN) History of gastric cancer (Chronic) Myofascial muscle pain (Acute) Past Medical History Medical History (Updated 02/18/22 @ 12:07 by Bridget Ansari RN) Cancer of stomach Depression Glaucoma High cholesterol Hypertension Family History Family History Daughter Breast cancer Brother Prostate cancer Mother Stomach cancer Family history of problems with anesthesia: No Surgical History Surgical History (Updated 02/18/22 @ 12:07 by Bridget Ansari RN) History of esophagogastroduodenoscopy (EGD) History of partial gastrectomy Hx of colonoscopy History of Problems with Anesthesia: Yes (Delayed emergence ) Social History Social History Household Members: Family Housing: Apartment Are you a primary career specialist to a significant other at home: No Do you presently have visiting nurse or other home services: Yes Alcohol intake: former Patient Tobacco Use Status: Former Tobacco user Quit Date: 7yrs ago Tobacco use type: Cigarette service: No Current occupational status: disabled Meds Allergies Allergy/AdvReac Type Severity Reaction Status Date / Time Penicillins Allergy Severe anaphylax Verified 02/18/22 12:01 Home Medications Medication Instructions Recorded Confirmed Last Taken Type ezetimibe 10 mg tablet (Zetia) 10 mg PO DAILY 01/19/21 02/18/22 Unknown History latanoprost 0.005 % eye drops 1 drp ophthalmic (eye) DAILY 01/19/21 02/18/22 Unknown History losartan 25 mg tablet 25 mg PO DAILY 01/19/21 02/18/22 08/20/21 08:00 History tizanidine 2 mg tablet 2 mg PO Q12H PRN Muscle Spasm 03/11/21 02/18/22 Unknown History acetaminophen 600 mg PO DAILY PRN Pain 07/10/21 01/27/22 Unknown History ondansetron 4 mg disintegrating 4 mg PO Q8H PRN Nausea 07/10/21 02/18/22 Unknown History tablet amlodipine 5 mg tablet 1 tab PO DAILY 08/20/21 02/18/22 08/20/21 08:00 History metoclopramide HCl 10 mg tablet 10 mg PO TID 01/25/22 02/18/22 Unknown History tobramycin 0.3 %-dexamethasone 0.1 1 drp ophthalmic (eye) TID 01/25/22 02/18/22 Unknown History % eye drops,suspension Exam Exam Date and Time: February 22, 2022 1250 Height,Weight and Vital Signs: Height 4 ft 3 in Weight 46.4 kg Pertinent Lab Results Pertinent Lab Results: Laboratory Tests 01/27/22 01/27/22 10:19 10:19 WBC 5.9 Hgb 10.8 L Hct 32.6 L Plt Count 231 Sodium 142 Potassium 3.7 Chloride 107 Carbon Dioxide 25 BUN 18 H Creatinine 0.62 Assessment and Plan Assessment Anesthesia Assessment: Chart Reviewed Final Anesthetic Review Family History of Problems with Anesthesia: No History of Problems with Anesthesia: Yes (Delayed emergence ) Documented by User: Jerad Almanza MD 02/23/22 17:52 [facility] Past Medical History Medical History (Updated 02/18/22 @ 12:07 by Bridget Ansari RN) Cancer of stomach Depression Glaucoma High cholesterol Hypertension Family History Family History Daughter Breast cancer Brother Prostate cancer Mother Stomach cancer Surgical History Surgical History (Updated 02/18/22 @ 12:07 by Bridget Ansari RN) History of esophagogastroduodenoscopy (EGD) History of partial gastrectomy Hx of colonoscopy Social History Social History Household Members: Family Housing: Apartment Are you a primary career specialist to a significant other at home: No Do you presently have visiting nurse or other home services: Yes Alcohol intake: former Patient Tobacco Use Status: Former Tobacco user Quit Date: 7yrs ago Tobacco use type: Cigarette service: No Current occupational status: disabled Meds Allergies Allergy/AdvReac Type Severity Reaction Status Date / Time Penicillins Allergy Severe anaphylax Verified 02/18/22 12:01 Home Medications Medication Instructions Recorded Confirmed Last Taken Type ezetimibe 10 mg tablet (Zetia) 10 mg PO DAILY 01/19/21 02/18/22 Unknown History latanoprost 0.005 % eye drops 1 drp ophthalmic (eye) DAILY 01/19/21 02/18/22 Unknown History losartan 25 mg tablet 25 mg PO DAILY 01/19/21 02/18/22 08/20/21 08:00 History tizanidine 2 mg tablet 2 mg PO Q12H PRN Muscle Spasm 03/11/21 02/18/22 Unknown History acetaminophen 600 mg PO DAILY PRN Pain 07/10/21 01/27/22 Unknown History ondansetron 4 mg disintegrating 4 mg PO Q8H PRN Nausea 07/10/21 02/18/22 Unknown History tablet amlodipine 5 mg tablet 1 tab PO DAILY 08/20/21 02/18/22 08/20/21 08:00 History metoclopramide HCl 10 mg tablet 10 mg PO TID 01/25/22 02/18/22 Unknown History tobramycin 0.3 %-dexamethasone 0.1 1 drp ophthalmic (eye) TID 01/25/22 02/18/22 Unknown History % eye drops,suspension Exam Airway Mallampati Class: III TM Dist: <=3cm Neck ROM: Full Denture: Upper Loose/Missing/Broken Teeth: Yes Heart: S1,S2 Lungs: b/l breath sounds Assessment and Plan Assessment Anesthesia Assessment: Anesthesia Plan Discussed Final Anesthetic Review NPO: Yes ASA Class: IV Final Preanesthetic Review: Meds/Allgs Chart Reviewed, Consent Obtained/Reviewed and Anes Risks/Benef Reviewed Patient Risk: Intermediate Procedure Risk: Intermediate Anesthetic Plan Anesthetic Plan: MAC: Disposition: Standard PACU
--- NOTE | 2022-02-23 12:10 | PC.NURSE ---
A+Ox1, confused, health care proxy/daughter Arlene severiano
[2022-02-23 12:20] VITALS: BP 125/61; PULSE 70; RESP 16; TEMP 37.3; O2SAT 96; BMI 27.6
[2022-02-23] MEDS: Lactated Ringers 1,000 ML 100 ML IVCONT (12:35)
--- NOTE | 2022-02-23 12:57 | P.HPSUR_ITS ---
Pre-Procedural Eval Section A Date of Service: 02/23/22 Section B Chief Complaint: hx of other malignant neoplasm of stomach Relevant Family History (Specify if Yes): No Relevant Social History: None Present Medications: see Short Stay Collaborative assessment Medical History: Significant History (Cancer of stomach Depression Glaucoma High cholesterol Hypertension) History of Previous Operations: Relevant previous surgery/procedure and date(s) (History of esophagogastroduodenoscopy (EGD) History of partial gastrectomy Hx of colonoscopy) Allergies: Allergies Allergy/AdvReac Type Severity Reaction Status Date / Time Penicillins Allergy Severe anaphylax Verified 02/18/22 12:01 Review of Systems Sugical H&P ROS: Negative: Constitution, Cardiovascular, Respiratory, Neurological, Psychiatric, Hem-Onc, Allergic/Immunologic, Gastrointestinal, Genitourinary, Musculoskeletal, Integumentary, Endocrine and Eyes/Ears/Nose/Throat Exam Surgical H&P Exam: Normal: HEENT, Normal: Heart, Normal: Lungs, Normal: Extre mities, Normal: Abdomen, Normal: Skin and Normal: Neurological Plan Diagnosis/Plan: Unchanged I have reviewed the history and physical and performed a pertinent physical examination on my patient. No changes have occurred unless specified.
--- NOTE | 2022-02-23 12:58 | W.PM.OPN ---
Operative Note Operative Note Date of Service: 02/23/22 Narrative: Procedure Description: EGD Indication: hx of gastric cancer Anesthesia: MAC initially but then switched to GA due to food in stomach FLEXIBLE TRANSORAL UPPER GASTROINTESTINAL ENDOSCOPY UPPER ENDOSCOPY Consent: Indications for the procedure and potential complications of bleeding, perforation, reaction to medications and missed diagnosis were discussed with the patient and informed consent was obtained. Instrument: Olympus GIF H 190 J mid size upper endoscope Monitoring: Vital signs and clinical assessment, continuous EKG monitoring, Pulse oximetry, Carbon Dioxide monitoring and blood pressure monitoring were done throughout the procedure. Procedure: The patient was placed in the left lateral decubitis position and pre-procedure medications were administered and a bite block was placed. The endoscope was inserted into the mouth and advanced under direct vision to the third part of duodenum. A careful inspection was made as the upper endoscope was withdrawn including a retroflexed examination of the proximal stomach; Findings and interventions are described below. Findings: Larynx:normal Esophagus: GE junction at 35? cm, diaphragm hiatus at 35 cm, normal mucosa Stomach: Scarred and atrophied mucosa. Biopsies were obtained from antrum, greater and lesser curves. At the angularis was an area of friable and edematous tissue which was boggy and extended into the lesser curve of the body of the stomach. There also appeared to be circumferentially thickened tissue at the same area. Grade 2 flap valve on retroflexed examination of the cardia. Duodenum: normal Intervention: Biopsies as noted above Impression/Findings: Gastric mass, worse appearance than before PLAN: f/u oncology await tissue samples and biopsies l changes appeared to be present, stomach had a strange angulation Duodenum: Normal bulb and descending duodenum, bx taken Intervention: Biopsies as noted above
[2022-02-23 13:56] VITALS: BP 137/67; PULSE 90; RESP 18; TEMP 36.2; O2SAT 100
[2022-02-23 14:01] VITALS: BP 130/55; PULSE 91; RESP 18; O2SAT 95
[2022-02-23 14:06] VITALS: BP 133/85; PULSE 89; RESP 17; O2SAT 95
[2022-02-23 14:11] VITALS: BP 134/89; PULSE 96; RESP 17; O2SAT 97
[2022-02-23 14:26] VITALS: BP 131/61; PULSE 86; RESP 17; TEMP 36.1; O2SAT 96
[2022-02-23] MEDS: ondansetron HCL 4 MG/2 ML VIAL IVPUSH (14:28)
== END 2022-02-23 14:57 ==
LOC: HO.SSS 11:32
PROVIDERS: PCP Internal Medicine; Visit Provider Internal Medicine Gastroenterology
PROC: 0DJ08ZZ Inspection of Upper Intestinal Tract, Via Natural or Artificial Opening Endoscopic (ICD-10-PCS; CPT 43235; principal; 2022-02-23 13:20)
DX: C16.5 Malignant neoplasm of lesser curvature of stomach, unspecified (principal); Z85.028 Personal history of other malignant neoplasm of stomach; M79.18 Myalgia, other site; K44.9 Diaphragmatic hernia without obstruction or gangrene; I10 Essential (primary) hypertension; E78.00 Pure hypercholesterolemia, unspecified; F32.A Depression, unspecified; H40.9 Unspecified glaucoma; Z90.3 Acquired absence of stomach [part of]; Z79.899 Other long term (current) drug therapy; Z88.0 Allergy status to penicillin; Z87.891 Personal history of nicotine dependence
CPT/HCPCS: 43239; 88305; 88342; J2405

== ENCOUNTER → 2022-03-01 09:59 | Outpatient (BNVA) | payer OTHER, SELFPAY | PROVIDERS: PCP Internal Medicine; Visit Provider Anesthesiology | DX: G58.8 Other specified mononeuropathies (principal); M79.18 Myalgia, other site; G89.4 Chronic pain syndrome; Z85.028 Personal history of other malignant neoplasm of stomach | CPT/HCPCS: 99202 ==

== ENCOUNTER 2022-04-13 06:13 | Outpatient (REF) | payer OTHER, SELFPAY ==
--- NOTE | ~2022-04-13 | FL_ITS ---
EXAMINATION: XR FLUOROSCOPY WITH IMAGES CLINICAL INFORMATION: History of gastric malignancy. COMPARISON: PET/CT of 01/19/2022. TECHNIQUE: Fluoroscopy Supervised By: Dr. Clay Cunningham. Fluoroscopy Time: 0.3 minutes. Cumulative Dose: 3.27 mGy. DAP: 0.893 Gycm2. Images: 1. FINDINGS: Needle and contrast are seen on AP view overlying the inferior aspect of the left 12th rib. FL/FL guidance in treatment room IMPRESSION: Intraoperative fluoroscopy for pain management procedure.
== END 2022-04-13 06:14 | disposition home or self-care (01) ==
LOC: CF 06:13
PROVIDERS: Visit Provider Anesthesiology
DX: C16.9 Malignant neoplasm of stomach, unspecified (principal); G89.4 Chronic pain syndrome; M79.18 Myalgia, other site; Z85.028 Personal history of other malignant neoplasm of stomach
CPT/HCPCS: 64420; J3301

== ENCOUNTER → 2022-05-31 12:06 | Outpatient (BNVA) | payer OTHER, SELFPAY | PROVIDERS: PCP Internal Medicine; Visit Provider Internal Medicine Gastroenterology | DX: C16.9 Malignant neoplasm of stomach, unspecified (principal); G89.29 Other chronic pain; R10.9 Unspecified abdominal pain; Z92.3 Personal history of irradiation; Z90.3 Acquired absence of stomach [part of] | CPT/HCPCS: 99212 ==

== ENCOUNTER → 2022-06-02 15:29 | Outpatient (BNVA) | payer OTHER, SELFPAY | PROVIDERS: PCP Internal Medicine; Visit Provider Anesthesiology | DX: M79.18 Myalgia, other site (principal); G89.4 Chronic pain syndrome; Z85.028 Personal history of other malignant neoplasm of stomach; G58.8 Other specified mononeuropathies | CPT/HCPCS: 99212 ==

== ENCOUNTER 2022-06-26 12:39 | Emergency (ER) | payer OTHER, SELFPAY ==
--- NOTE | ~2022-06-26 | XR_ITS ---
EXAMINATION: RADIOGRAPH LEFT HAND/WRIST CLINICAL INFORMATION: Pain and swelling COMPARISON: None TECHNIQUE: 4 views of the left hand/wrist were obtained FINDINGS: Diffuse osteopenia. Visualized portion of the distal radius and ulna demonstrate no fracture. Carpal rows are maintained. No carpal, metacarpal or phalangeal fracture. Mild degenerative changes of the first MCP joint and scattered IP joints. No localized soft tissue swelling. No radiopaque foreign body. Mild vascular calcifications. XR/XR hand wrist LT IMPRESSION: Diffuse osteopenia with mild degenerative changes of the hand. No fracture.
--- NOTE | ~2022-06-26 | CT_ITS ---
EXAMINATION: CT ABDOMEN AND PELVIS WITHOUT CONTRAST CLINICAL INFORMATION: Abdominal pain and vomiting. Stomach cancer. COMPARISON: Multiple priors, most recent PET/CT dated 01/19/2022. CT chest dated 07/17/2021. TECHNIQUE: Multidetector volumetric imaging was performed from the superior aspect of the liver through the pubic symphysis. Sagittal and coronal reformatted images were obtained on the technologist's workstation. This CT examination was performed using dose optimization techniques as appropriate, variously including the following: *Automated exposure control *Adjustment of mA and/or kV according to patient size (this includes techniques or standardized protocols for targeted exams where dose is matched to indication/reason for exam; i.e. extremities or head) *Use of iterative reconstruction technique DLP: 312 mGy-cm FINDINGS: LUNG BASES: Mild dependent atelectasis. Stable cardiomegaly and trace pericardial effusion, unchanged. LIVER, GALLBLADDER, AND BILIARY TREE: The liver is normal in size, shape, and attenuation. No focal hepatic lesion or biliary ductal dilatation is present. The gallbladder is unremarkable with no evidence of radiopaque gallstones, gallbladder wall thickening, or obvious pericholecystic inflammatory changes. PANCREAS: Atrophic. SPLEEN: Unremarkable. ADRENAL GLANDS: Unremarkable. KIDNEYS AND URETERS: The kidneys are normal in size, shape, and attenuation. No hydronephrosis, hydroureter, or calculi seen. No perinephric stranding. BLADDER: Unremarkable. GASTROINTESTINAL TRACT: Redemonstration of a surgical suture line along the lesser curvature of the stomach, similar when compared to the prior examination. The stomach is nondistended. No new significant wall thickening or associated inflammatory change. Mild circumferential wall thickening and stranding adjacent to the duodenum which could indicate mild enteritis in the appropriate clinical setting. No additional bowel wall thickening. No small or large bowel obstruction. Appendix not well seen, however, no right lower quadrant inflammatory changes to suggest acute appendicitis. PERITONEAL CAVITY: No intra-abdominal free air or free fluid. ABDOMINAL WALL: No significant hernia is appreciated. LYMPH NODES: No new or increasing lymphadenopathy. Evaluation somewhat limited without IV contrast. VASCULAR: Atherosclerotic calcifications. No abdominal aortic dilatation. PELVIC VISCERA: The uterus and adnexa are unremarkable. OSSEOUS STRUCTURES: No acute osseous abnormality. CT/CT abdomen pelvis wo IV con IMPRESSION: 1. Post-surgical change along the lesser curvature of the stomach, similar when compared to the prior examination. No new gastric wall thickening or associated inflammatory change. 2. Mild circumferential wall thickening and adjacent stranding adjacent to the duodenum which could indicate mild enteritis in the appropriate clinical setting. No additional bowel wall thickening or associated inflammatory change. No small or large bowel obstruction. 3. No new intra-abdominal mass, lymphadenopathy, or ascites. 4. Additional chronic findings are unchanged. Fleischner guidelines were followed.
[2022-06-26 12:41] VITALS: BP 137/76; PULSE 116; RESP 20; TEMP 36.4; O2SAT 95; BMI 22.1
--- NOTE | 2022-06-26 12:45 | ED.GENADULT ---
HPI - General Adult General Chief complaint: Extremity Problem <Brittney El CNP - Last Filed: 06/26/22 12:50> Stated complaint: VOMITING L ARM PAIN ON VICKI <Brittney El CNP - Last Filed: 06/26/22 12:50> Time Seen by Provider: 06/26/22 14:28 <Brittney El CNP - Last Filed: 06/26/22 12:50> Source: patient and family (Daughter) <Sandra Corey MD - Last Filed: 06/26/22 16:30> Mode of arrival: ambulatory <Sandra Corey MD - Last Filed: 06/26/22 16:30> Limitations: no limitations <Sandra Corey MD - Last Filed: 06/26/22 16:30> History of Present Illness HPI narrative: 82-year-old female history presented with left wrist pain since yesterday, no trauma or injury to the left wrist. Patient also been having multiple episodes of vomiting with diffuse abdominal pain started since yesterday. Abdominal pain is diffuse 7/10 associated with nausea and vomiting, normal bowel. Patient with history of stomach cancer started on oral chemotherapy. Patient lives with chronic abdominal pain. <Sandra Corey MD - Last Filed: 06/26/22 16:30> Related Data Home medications: Home Medications Medication Instructions Recorded Confirmed ezetimibe 10 mg tablet (Zetia) 10 mg PO DAILY 01/19/21 06/02/22 latanoprost 0.005 % eye drops 1 drp ophthalmic (eye) DAILY 01/19/21 06/02/22 losartan 25 mg tablet 25 mg PO DAILY 01/19/21 06/02/22 tizanidine 2 mg tablet 2 mg PO Q12H PRN Muscle Spasm 03/11/21 06/02/22 acetaminophen 600 mg PO DAILY PRN Pain 07/10/21 06/02/22 ondansetron 4 mg disintegrating 4 mg PO Q8H PRN Nausea 07/10/21 06/02/22 tablet amlodipine 5 mg tablet 1 tab PO DAILY 08/20/21 06/02/22 metoclopramide HCl 10 mg tablet 10 mg PO TID 01/25/22 06/02/22 tobramycin 0.3 %-dexamethasone 0.1 1 drp ophthalmic (eye) TID 01/25/22 06/02/22 % eye drops,suspension Previous Rx's Medication Instructions Recorded dexamethasone 2 mg tablet 2 mg PO BID #30 tabs 04/21/22 ondansetron 8 mg disintegrating 8 mg PO Q8H PRN Nausea #30 tabs 04/21/22 tablet mirtazapine 7.5 mg tablet 7.5 mg PO BEDTIME #30 tabs 05/31/22 sucralfate 100 mg/mL oral 10 ml PO QIDACHS #1,000 mL 05/31/22 suspension (Carafate) capecitabine 500 mg tablet 1,000 mg PO BID #56 tabs 06/24/22 prednisone 20 mg tablet 20 mg PO DAILY #5 tabs 06/26/22 <Brittney El CNP - Last Filed: 06/26/22 12:50> Allergies/adverse reactions: Allergies Allergy/AdvReac Type Severity Reaction Status Date / Time Penicillins Allergy Severe anaphylax Verified 06/02/22 16:05 <Brittney El CNP - Last Filed: 06/26/22 12:50> Review of Systems Review of Systems: All other systems are reviewed and are negative Constitutional: Reports as per HPI and Reports no additional constitutional complaints Eyes: Reports as per HPI and Reports no additional eye complaints Reports system reviewed and no additional complaints, except as documented Cardiovascular: Reports as per HPI and Reports no additional cardiovascular complaints Respiratory: Reports as per HPI and Reports no additional respiratory complaints Gastrointestinal: Reports as per HPI and Reports no additional gastrointestinal complaints Genitourinary: Reports no additional female genitourinary complaints Musculoskeletal: Reports no additional musculoskeletal complaints Skin/Breast: Reports system reviewed and no additional complaints, except as docu Psychiatric: Reports no additional psychiatric complaints Endocrine: Reports no additional endocrine complaints Hematologic/Lymphatic: Reports no additional hematologic/lymphatic complaints Allergic/Immunologic: Reports no additional allergic/immunologic complaints Reports system reviewed and no additional complaints, except as documented and Reports Abnormal speech present <Sandra Corey MD - Last Filed: 06/26/22 16:30> PMFSH Past Medical History Medical History: Medical History Cancer of stomach Depression Glaucoma High cholesterol Hypertension <Brittney lE CNP - Last Filed: 06/26/22 12:50> Surgical History: Surgical History History of esophagogastroduodenoscopy (EGD) History of partial gastrectomy Hx of colonoscopy <Brittney El CNP - Last Filed: 06/26/22 12:50> Family History Family History: Family History Daughter Breast cancer Brother Prostate cancer Mother Stomach cancer <Brittney El CNP - Last Filed: 06/26/22 12:50> Social History Social History: Social History Household Members: Family Housing: Apartment Are you a primary administrator health care facility to a significant other at home: No Do you presently have visiting nurse or other home services: Yes Alcohol intake: former Patient Tobacco Use Status: Former Tobacco user Quit Date: 7yrs ago Tobacco use type: Cigarette Advance Directives: Yes Advance Directives on File: Yes Advance Directives Date on File: 09/16/21 service: No Current occupational status: disabled <Brittney El CNP - Last Filed: 06/26/22 12:50> Physical Exam ED Vital Signs: Vital Signs - 24 hr 06/26/22 12:41 06/26/22 14:46 Temperature 97.6 F 98.6 F Pulse Rate 116 H 96 Respiratory Rate 20 14 Blood Pressure 137/76 153/70 H Pulse Oximetry 95 95 Oxygen Delivery Method Room Air Room Air BMI result Body Mass Index 22.1 <Brittney El CNP - Last Filed: 06/26/22 12:50> Vital Signs - 24 hr 06/26/22 12:41 06/26/22 14:46 Temperature 97.6 F 98.6 F Pulse Rate 116 H 96 Respiratory Rate 20 14 Blood Pressure 137/76 153/70 H Pulse Oximetry 95 95 Oxygen Delivery Method Room Air Room Air BMI result Body Mass Index 22.1 Vital signs have been reviewed as appeared to be correct. Blood pressure normal. Heart rate normal. Respiration rate normal. Temperature normal. Oxygen saturation normal. <Sandra Corey MD - Last Filed: 03/04/23 16:30> Appearance: Alert. Oriented X3. No acute distress. Head: Normal external exam. Normocephalic. Atraumatic. No Hill signs noted. No raccoon eyes noted Eyes: PERRLA. EOMI. Conjunctiva and sclera normal. Eyelids normal. ENT: TM's Normal. Pharynx normal. Uvula midline. Moist mucous membranes. No trismus noted. No drooling noted. No muffled voice noted. Neck: Normal inspection. Neck supple. FROM. No adenopathy. Thyroid Normal. No meningeal signs. No neck mass noted. CVS: Normal heart rate and rhythm. Heart sound normal. No murmurs noted. Pulses normal throughout. Respiratory: No respiratory distress. Painless inspiration. Breath sounds normal. No wheezes/rales/rhonchi noted. Chest nontender. No accessory muscle usage noted or decreased air movement noted. Abdomen: Soft and nontender. Bowel sounds normal in all 4 quadrants. No distention noted. No organomegaly noted. No visible injury noted. Back: No CVA tenderness. Full range of motion noted. Skin: Skin warm and dry. Normal skin color. Normal skin turgor. No rashes/lesions/lacerations noted. Extremities: Left wrist/hand exam: Mild tenderness over the radial aspect of the left wrist, no deformity, no swelling, no redness, normal neurovascular exam. Neuro: Oriented X 3. Cranial nerve exam: II-XII are grossly intact No motor deficit. No sensory deficit. Reflexes normal. <Sandra Corey MD - Last Filed: 06/26/22 16:30> Course Course Course Narrative: left arm pain of sudden onset yesterday without any precipitating injury. Patient with a history of dementia, vague with history obtaining at this time. Patient's daughter is present, states that yesterday she began complaining of diffuse pain to the arm, today reporting pain to the hand and difficulty moving the hand. Yesterday also developed vomiting, and today vomiting 20 minutes after eating. Patient has gastric CA by daughters reports, but does not have problems with vomiting normally PE: full AROM to left shoulder and elbow, decreased AROM to left wrist/ hand, pain upon palpation, mild swelling over dorsal wrist. Plan: labs, viral testing, XR left wrist/ hand <Brittney El CNP - Last Filed: 06/26/22 12:50> Reevaluation(s) Reevaluation #1: Abdominal pain with nausea and vomiting awaiting for CT abdomen and pelvis. Slightly elevated 1st troponin awaiting for 2nd troponin. Case signed out to Dr. Dennis <Sandra Corey MD - Last Filed: 06/26/22 16:30> Time: 16:26 <Sandra Corey MD - Last Filed: 06/26/22 16:30> Medical Decision Making Differential Diagnosis Differential Diagnoses: The differential diagnosis associated with the presentation includes (Abdominal pain, small-bowel obstruction, complicated stomach CA, rule out ACS.) <Sandra Corey MD - Last Filed: 06/26/22 16:30> Lab Data MDM Lab Attestation statement: I reviewed the patient's lab results. <Sandra Corey MD - Last Filed: 06/26/22 16:30> Result Diagrams: 06/26/22 13:49 06/26/22 13:49 <Brittney El CNP - Last Filed: 06/26/22 12:50> Labs: Lab Results 06/26/22 06/26/22 06/26/22 Range/Units 13:20 13:20 13:49 WBC 9.7 (4.8-10.8) X10*3/uL RBC 3.52 L (4.20-5.50) X10*6/uL Hgb 11.0 L (12.0-16.0) g/dl Hct 33.4 L (37.0-47.0) % MCV 94.9 (80.0-98.0) fL MCH 31.3 (27.0-33.0) pg MCHC 32.9 (31.0-35.0) g/dl RDW 18.9 H (11.0-16.0) % Plt Count 175 D (160-400) X10*3/uL MPV 9.5 (9.4-12.3) fL Immature Gran % (Auto) 0.6 H (0.0-0.4) % Neut % (Auto) 76.2 H (45-73) % Lymph % (Auto) 10.2 L (20-40) % Kinney % (Auto) 12.2 H (2-11) % Eos % (Auto) 0.4 (0-4) % Baso % (Auto) 0.4 (0-2) % Lymph # (Auto) 1.0 L (1.2-4.9) X10*3/uL Kinney # (Auto) 1.2 (0.1-1.2) X10*3/uL Eos # (Auto) 0.0 (0.0-0.4) X10*3/uL Baso # (Auto) 0.0 (0.0-0.2) X10*3/uL Abs Immat Gran (auto) 0.06 H (0.00-0.03) X10*3/uL Absolute Neuts (auto) 7.4 (2.0-8.3) x10*3/uL Absolute Nucleated RBC 0.000 (0.0-0.012) X10*3/uL Nucleated RBC % (auto) 0.0 (0.0-0.2) /100WBC PT (10.0-13.1) SEC INR (0.9-1.1) Sodium (135-145) mmol/L Potassium (3.3-5.1) mmol/L Chloride (96-108) mmol/L Carbon Dioxide (22-29) mmol/L Anion Gap (12-20) BUN (9-16) mg/dL Creatinine (0.5-1.4) mg/dL Estim Creat Clear Calc Estimated GFR Random Glucose (60-115) mg/dL Calcium (8.4-10.2) mg/dL Total Bilirubin (0.0-1.0) mg/dL AST (5-31) U/L ALT (0-31) U/L Alkaline Phosphatase (39-117) U/L Troponin I High Sens (<3.5-17.0) ng/L Total Protein (6.5-8.0) g/dL Albumin (3.5-5.0) g/dL Lipase (8-78) U/L COVID-19 (CARLOS A) Negative (Negative) COVID-19 Clin Com See Note Influenza Type A (STEPHANIE) Negative (Negative) Influenza Type B (STEPHANIE) Negative (Negative) Influenza A & B Note See Note 06/26/22 06/26/22 06/26/22 Range/Units 13:49 13:49 13:49 WBC (4.8-10.8) X10*3/uL RBC (4.20-5.50) X10*6/uL Hgb (12.0-16.0) g/dl Hct (37.0-47.0) % MCV (80.0-98.0) fL MCH (27.0-33.0) pg MCHC (31.0-35.0) g/dl RDW (11.0-16.0) % Plt Count (160-400) X10*3/uL MPV (9.4-12.3) fL Immature Gran % (Auto) (0.0-0.4) % Neut % (Auto) (45-73) % Lymph % (Auto) (20-40) % Kinney % (Auto) (2-11) % Eos % (Auto) (0-4) % Baso % (Auto) (0-2) % Lymph # (Auto) (1.2-4.9) X10*3/uL Kinney # (Auto) (0.1-1.2) X10*3/uL Eos # (Auto) (0.0-0.4) X10*3/uL Baso # (Auto) (0.0-0.2) X10*3/uL Abs Immat Gran (auto) (0.00-0.03) X10*3/uL Absolute Neuts (auto) (2.0-8.3) x10*3/uL Absolute Nucleated RBC (0.0-0.012) X10*3/uL Nucleated RBC % (auto) (0.0-0.2) /100WBC PT 13.4 H (10.0-13.1) SEC INR 1.2 H (0.9-1.1) Sodium 143 (135-145) mmol/L Potassium 4.0 (3.3-5.1) mmol/L Chloride 106 (96-108) mmol/L Carbon Dioxide 28 (22-29) mmol/L Anion Gap 13 (12-20) BUN 22 H (9-16) mg/dL Creatinine 0.62 (0.5-1.4) mg/dL Estim Creat Clear Calc 42.9 Estimated GFR > 60 Random Glucose 94 (60-115) mg/dL Calcium 8.3 L (8.4-10.2) mg/dL Total Bilirubin 0.7 (0.0-1.0) mg/dL AST 43 H (5-31) U/L ALT 30 (0-31) U/L Alkaline Phosphatase 104 (39-117) U/L Troponin I High Sens 21.9 H (<3.5-17.0) ng/L Total Protein 5.7 L (6.5-8.0) g/dL Albumin 3.1 L (3.5-5.0) g/dL Lipase < 4 L (8-78) U/L COVID-19 (CARLOS A) (Negative) COVID-19 Clin Com Influenza Type A (STEPHANIE) (Negative) Influenza Type B (STEPHANIE) (Negative) Influenza A & B Note <Brittney El CNP - Last Filed: 06/26/22 12:50> Lab Results 06/26/22 06/26/22 06/26/22 Range/Units 13:20 13:20 13:49 WBC 9.7 (4.8-10.8) X10*3/uL RBC 3.52 L (4.20-5.50) X10*6/uL Hgb 11.0 L (12.0-16.0) g/dl Hct 33.4 L (37.0-47.0) % MCV 94.9 (80.0-98.0) fL MCH 31.3 (27.0-33.0) pg MCHC 32.9 (31.0-35.0) g/dl RDW 18.9 H (11.0-16.0) % Plt Count 175 D (160-400) X10*3/uL MPV 9.5 (9.4-12.3) fL Immature Gran % (Auto) 0.6 H (0.0-0.4) % Neut % (Auto) 76.2 H (45-73) % Lymph % (Auto) 10.2 L (20-40) % Kinney % (Auto) 12.2 H (2-11) % Eos % (Auto) 0.4 (0-4) % Baso % (Auto) 0.4 (0-2) % Lymph # (Auto) 1.0 L (1.2-4.9) X10*3/uL Kinney # (Auto) 1.2 (0.1-1.2) X10*3/uL Eos # (Auto) 0.0 (0.0-0.4) X10*3/uL Baso # (Auto) 0.0 (0.0-0.2) X10*3/uL Abs Immat Gran (auto) 0.06 H (0.00-0.03) X10*3/uL Absolute Neuts (auto) 7.4 (2.0-8.3) x10*3/uL Absolute Nucleated RBC 0.000 (0.0-0.012) X10*3/uL Nucleated RBC % (auto) 0.0 (0.0-0.2) /100WBC PT (10.0-13.1) SEC INR (0.9-1.1) Sodium (135-145) mmol/L Potassium (3.3-5.1) mmol/L Chloride (96-108) mmol/L Carbon Dioxide (22-29) mmol/L Anion Gap (12-20) BUN (9-16) mg/dL Creatinine (0.5-1.4) mg/dL Estim Creat Clear Calc Estimated GFR Random Glucose (60-115) mg/dL Calcium (8.4-10.2) mg/dL Total Bilirubin (0.0-1.0) mg/dL AST (5-31) U/L ALT (0-31) U/L Alkaline Phosphatase (39-117) U/L Troponin I High Sens (<3.5-17.0) ng/L Total Protein (6.5-8.0) g/dL Albumin (3.5-5.0) g/dL Lipase (8-78) U/L COVID-19 (CARLOS A) Negative (Negative) COVID-19 Clin Com See Note Influenza Type A (STEPHANIE) Negative (Negative) Influenza Type B (STEPHANIE) Negative (Negative) Influenza A & B Note See Note 06/26/22 06/26/22 06/26/22 Range/Units 13:49 13:49 13:49 WBC (4.8-10.8) X10*3/uL RBC (4.20-5.50) X10*6/uL Hgb (12.0-16.0) g/dl Hct (37.0-47.0) % MCV (80.0-98.0) fL MCH (27.0-33.0) pg MCHC (31.0-35.0) g/dl RDW (11.0-16.0) % Plt Count (160-400) X10*3/uL MPV (9.4-12.3) fL Immature Gran % (Auto) (0.0-0.4) % Neut % (Auto) (45-73) % Lymph % (Auto) (20-40) % Kinney % (Auto) (2-11) % Eos % (Auto) (0-4) % Baso % (Auto) (0-2) % Lymph # (Auto) (1.2-4.9) X10*3/uL Kinney # (Auto) (0.1-1.2) X10*3/uL Eos # (Auto) (0.0-0.4) X10*3/uL Baso # (Auto) (0.0-0.2) X10*3/uL Abs Immat Gran (auto) (0.00-0.03) X10*3/uL Absolute Neuts (auto) (2.0-8.3) x10*3/uL Absolute Nucleated RBC (0.0-0.012) X10*3/uL Nucleated RBC % (auto) (0.0-0.2) /100WBC PT 13.4 H (10.0-13.1) SEC INR 1.2 H (0.9-1.1) Sodium 143 (135-145) mmol/L Potassium 4.0 (3.3-5.1) mmol/L Chloride 106 (96-108) mmol/L Carbon Dioxide 28 (22-29) mmol/L Anion Gap 13 (12-20) BUN 22 H (9-16) mg/dL Creatinine 0.62 (0.5-1.4) mg/dL Estim Creat Clear Calc 42.9 Estimated GFR > 60 Random Glucose 94 (60-115) mg/dL Calcium 8.3 L (8.4-10.2) mg/dL Total Bilirubin 0.7 (0.0-1.0) mg/dL AST 43 H (5-31) U/L ALT 30 (0-31) U/L Alkaline Phosphatase 104 (39-117) U/L Troponin I High Sens 21.9 H (<3.5-17.0) ng/L Total Protein 5.7 L (6.5-8.0) g/dL Albumin 3.1 L (3.5-5.0) g/dL Lipase < 4 L (8-78) U/L COVID-19 (CARLOS A) (Negative) COVID-19 Clin Com Influenza Type A (STEPHANIE) (Negative) Influenza Type B (STEPHANIE) (Negative) Influenza A & B Note <Sandra Corey MD - Last Filed: 06/26/22 16:30> Independent Interpretation I performed an independent interpretation of an: EKG (Sinus tachycardia 104 per minute, left axis deviation, normal intervals, no ST-T changes.) and Plain X-Ray (Left hand/wrist:Diffuse osteopenia with mild degenerative changes of the hand. No fracture.) <Sandra Corey MD - Last Filed: 06/26/22 16:30> Radiology Impression Discussion of test interpretation with radiology: I have reviewed the radiologist's reading. <Sandra Corey MD - Last Filed: 06/26/22 16:30> Discharge Plan Discharge Clinical Impression: Gout, Abdominal pain <Brittney El CNP - Last Filed: 06/26/22 12:50> Patient Disposition: Still a Patient <Brittney El CNP - Last Filed: 06/26/22 12:50> Prescriptions: New prednisone 20 mg tablet 20 mg PO DAILY Qty: 5 0RF No Action tizanidine 2 mg Tablet 2 mg PO Q12H PRN (Reason: Muscle Spasm) acetaminophen 600 mg PO DAILY PRN (Reason: Pain) ondansetron 4 mg tablet,disintegrating 4 mg PO Q8H PRN (Reason: Nausea) ondansetron 8 mg Tablet,Disintegrating 8 mg PO Q8H PRN (Reason: Nausea) Qty: 30 3RF dexamethasone 2 mg Tablet 2 mg PO BID Qty: 30 1RF Rx Instructions: For 2 days after chemotherapy capecitabine 500 mg Tablet 1,000 mg PO BID Qty: 56 3RF Rx Instructions: for 14 days per 21-day cycle; must administer with water 30 minutes after a meal amlodipine 5 mg tablet 1 tab PO DAILY losartan 25 mg tablet 25 mg PO DAILY ezetimibe [Zetia] 10 mg tablet 10 mg PO DAILY latanoprost 0.005 % drops 1 drp ophthalmic (eye) DAILY metoclopramide HCl 10 mg tablet 10 mg PO TID tobramycin-dexamethasone 0.3-0.1 % drops,suspension 1 drp ophthalmic (eye) TID sucralfate [Carafate] 100 mg/mL suspension 10 ml PO QIDACHS Qty: 1000 2RF mirtazapine 7.5 mg tablet 7.5 mg PO BEDTIME Qty: 30 3RF <Brittney El, MEDIA SENIOR RECRUITER - Last Filed: 06/26/22 12:50>
--- NOTE | 2022-06-26 12:54 | ECG_ITS ---
Test Reason : ARM PAIN Blood Pressure : / mmHG Vent. Rate : 104 BPM Atrial Rate : 104 BPM P-R Int : 128 ms QRS Dur : 068 ms QT Int : 354 ms P-R-T Axes : 043 -39 021 degrees QTc Int : 465 ms Sinus tachycardia Left axis deviation Nonspecific ST and T wave abnormality Abnormal ECG When compared with ECG of 25-NOV-2020 15:09, Nonspecific T wave abnormality now evident in Inferior leads Referred By: Brittney El Electronically Signed By:LORNE SCHWARTZ MD
[2022-06-26 13:46] LABS: IDNOW Serial# 9DB6401D; Influenza A Negative (Negative); Influenza B2 Negative (Negative)
[2022-06-26 13:47] LABS: COVID-19 Test Negative (Negative); IDNOW Serial# BCCEAD1C
[2022-06-26 13:53] LABS: MANUAL DIFF FLAG NO
[2022-06-26 13:54] LABS: Basophils Percent Auto 0.4 % (0-2); Eosinophils Percent Auto 0.4 % (0-4); Hematocrit 33.4 % (37.0-47.0); Imm Gran Abs Auto 0.06 X10*3/uL (0.00-0.03); Imm Gran Pct Auto 0.6 % (0.0-0.4); Lymphocytes Percent Auto 10.2 % (20-40); Mean Corpuscular HGB Conc 32.9 g/dl (31.0-35.0); Mean Corpuscular Hemoglobin 31.3 pg (27.0-33.0); Mean Corpuscular Volume 94.9 fL (80.0-98.0); Mean Platelet Volume 9.5 fL (9.4-12.3); Monocytes Absolute Auto 1.2 X10*3/uL (0.1-1.2); Monocytes Percent Auto 12.2 % (2-11); Neutrophils Absolute Auto 7.4 x10*3/uL (2.0-8.3); Neutrophils Percent Auto 76.2 % (45-73); Platelet Count 175 X10*3/uL (160-400); Red Blood Count 3.52 X10*6/uL (4.20-5.50); Red Cell Distribution Width 18.9 % (11.0-16.0); White Blood Count 9.7 X10*3/uL (4.8-10.8)
[2022-06-26 13:59] LABS: INTERNATIONAL NORM RATIO 1.2 (0.9-1.1); Prothrombin Time 13.4 SEC (10.0-13.1)
[2022-06-26 14:15] LABS: Alanine Aminotransferase 30 U/L (0-31); Albumin Level 3.1 g/dL (3.5-5.0); Alkaline Phosphatase 104 U/L (39-117); Anion Gap 13 (12-20); Aspartate Amino Transferase 43 U/L (5-31); Bilirubin Total 0.7 mg/dL (0.0-1.0); Blood Urea Nitrogen 22 mg/dL (9-16); Calcium 8.3 mg/dL (8.4-10.2); Carbon Dioxide 28 mmol/L (22-29); Chloride 106 mmol/L (96-108); Creatinine Clr Calc Pharmacy 42.9; Estimated Glomerular Filt Rate > 60; Glucose Random 94 mg/dL (60-115); Lipase < 4 U/L (8-78); Sodium 143 mmol/L (135-145); Total Protein 5.7 g/dL (6.5-8.0)
[2022-06-26 14:17] LABS: Troponin-I High Sensitivity 21.9 ng/L (<3.5-17.0)
[2022-06-26 14:46] VITALS: BP 153/70; PULSE 96; RESP 14; TEMP 37; O2SAT 95
[2022-06-26 16:23] VITALS: BP 143/64; PULSE 95; RESP 18; TEMP 37; O2SAT 96
[2022-06-26] MEDS: predniSONE 20 MG TABLET 40 MG PO (16:51)
[2022-06-26 17:04] LABS: Appearance Urine Clear; Color Urine Dark Yellow; Glucose Urine UA Negative (Negative); Leukocyte Esterase Urine Trace (Negative); Nitrite Urine Negative (Negative); Specific Gravity - Urine 1.025 (1.005-1.025); UMIC TRIGGER UACC YES; Urine Blood Negative (Negative); Urine Ketones 80 mg/dL (Negative); Urine Protein 30 (1+) mg/dL (Neg-Trace)
[2022-06-26 17:09] LABS: Bacteria Urine None Seen (None Seen); Hyaline Casts Urine 0-2 /LPF (0-2); RBC Urine 0-2 /HPF (0-2); Squamous Epithelial Cell Urine 0-2 /HPF (0-2); WBC Urine 0-5 /HPF (0-5)
[2022-06-26 17:20] LABS: Troponin-I High Sensitivity 33.6 ng/L (<3.5-17.0)
== END 2022-06-26 19:20 | disposition home or self-care (01) ==
PROVIDERS: Emergency Medicine; Nurse Practitioner Family; Emergency Provider Emergency Medicine Emergency Medical Services; PCP Internal Medicine
DX: M10.9 Gout, unspecified (principal); R10.9 Unspecified abdominal pain; M25.532 Pain in left wrist; R11.2 Nausea with vomiting, unspecified; R00.0 Tachycardia, unspecified; Z20.822 Contact with and (suspected) exposure to COVID-19; I10 Essential (primary) hypertension; E78.5 Hyperlipidemia, unspecified; C16.9 Malignant neoplasm of stomach, unspecified; Z92.21 Personal history of antineoplastic chemotherapy; Z87.891 Personal history of nicotine dependence; Z79.899 Other long term (current) drug therapy
CPT/HCPCS: 36415; 73110; 73130; 74176; 80053; 81001; 81003; 83690; 84484; 85025; 85610; 87502; 87635; 93005; 99284; 99285

== ENCOUNTER 2022-08-06 10:02 | Outpatient (REF) | payer MEDICARE, SELFPAY ==
--- NOTE | ~2022-08-06 | CT_ITS ---
EXAMINATION: CT WRIST WITHOUT CONTRAST, LEFT CLINICAL INFORMATION: Left wrist pain. COMPARISON: Left hand and wrist radiographs dated 06/26/2022. TECHNIQUE: Contiguous axial CT images of the left wrist were obtained without contrast. Multiplanar reformats were provided and reviewed. This CT examination was performed using dose optimization techniques as appropriate, variously including the following: *Automated exposure control *Adjustment of mA and/or kV according to patient size (this includes techniques or standardized protocols for targeted exams where dose is matched to indication/reason for exam; i.e. extremities or head) *Use of iterative reconstruction technique. DOSE: 111 mGy-cm FINDINGS: No acute fracture or dislocation. Normal carpal alignment. Joint space narrowing with marginal osteophytes at the triscaphe and 1st carpometacarpal joints. More moderate joint space narrowing with marginal osteophytes at the 1st metacarpophalangeal joint and 1st interphalangeal joint. No concerning lytic or blastic osseous lesion. Mild radiocarpal chondrocalcinosis. No large joint effusion. No abnormal soft tissue mass or fluid collection. The visualized flexor and extensor tendons are grossly intact; however, evaluation is limited on CT examination. CT/CT wrist LT wo IV con IMPRESSION: 1. No acute fracture or dislocation. 2. 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 More moderate osteoarthritis at the 1st metacarpophalangeal joint and 1st interphalangeal joint. 3. Mild radiocarpal chondrocalcinosis.
== END 2022-08-06 10:03 | disposition home or self-care (01) ==
LOC: HO.CT 10:02
PROVIDERS: PCP Internal Medicine; Visit Provider Internal Medicine
DX: M25.532 Pain in left wrist (principal)
CPT/HCPCS: 73200

== ENCOUNTER 2022-08-17 09:27 | Outpatient (REF) | payer MEDICARE, SELFPAY ==
--- NOTE | ~2022-08-17 | PE_ITS ---
EXAMINATION: Fluorine-18 FDG PET/CT Scan CLINICAL INDICATION: Subsequent treatment management. Gastric adenocarcinoma, restaging. PROCEDURE: 80 minutes following the intravenous administration of 16.9 mCi of fluorine 18 FDG, images from the base of the skull to the mid thighs were obtained using a combined PET/CT scanner with CT scan based attenuation correction. No oral contrast was administered. No intravenous contrast was administered. Transverse, coronal, sagittal, and volume reconstruction projections were obtained. The patient's blood glucose as determined by a finger stick, was 69 mg/dl immediately prior to injection. Total CT exam dose-length product 156.78 mGy-cm * These CT images were obtained using dose optimization techniques as appropriate, variously including the following: Automated exposure control * Adjustment of mA and/or kV according to patient size (this includes techniques or standardized protocols for targeted exams where dose is matched to indication/reason for exam; i.e. extremities or head) * Use of iterative reconstruction technique COMPARISON: Prior PET/CT scans dated 01/19/2022 and 09/14/2021 are available for comparison. CT scan of the abdomen and pelvis dated 06/26/2022 is also available for comparison. FINDINGS: (Slice numbers described in this report are numbered superiorly to inferiorly with slice #1 in the head) NECK AND VISUALIZED HEAD: No foci of abnormal FDG activity are noted. The distribution of FDG activity is physiological. There is no cervical lymphadenopathy. THORAX: There is a focus of mildly increased FDG activity in the proximal peribronchial region of the right lung near the origin of the right middle lobe bronchus. This shows SUVmax 3.1, slice 71/223 and is slightly less intense than the same focus on the prior study when this showed SUVmax 4.1 on 01/19/2022. It continues to be inseparable from adjacent vascular structures on these nondiagnostic CT images performed without intravenous contrast. There are no additional foci of abnormal FDG activity in the chest. Mild bilateral apical scarring is unchanged from the prior study and shows no abnormal FDG activity. Also unchanged from the prior study is a subpleural subcentimeter focus of scarring or atelectasis in the posterolateral aspect of the left upper lobe with no associated abnormal FDG activity, slice 56/223. Additional small subcentimeter nodules are also unchanged from the prior study: A lateral subpleural 0.3 left upper lobe nodule, slice 60/223; a subpleural 0.5 cm nodule anterolaterally in the right middle lobe, slice 73/223; a cluster of small subcentimeter nodules laterally in the right upper middle centered around slice 76/223 an all of these appear stable and remain much too small to be characterized on the FDG PET images. There is no pleural or pericardial fluid or pneumothorax. There is no additional hilar, mediastinal, supraclavicular or axillary lymphadenopathy. A left-sided chest port with internal jugular catheter terminating in the superior vena cava is noted and was present on the prior study., ABDOMEN AND PELVIS: A focus of increased FDG activity in the lesser curvature of the stomach has increased in intensity since the 11/11/2021 study, now showing SUVmax 9.1, slice 105/223 versus SUVmax 6.5 on 01/19/2022. There continues to be associated with some wall thickening at this site and abuts a suture line. There is only mild FDG activity present throughout the remainder the gastrointestinal tract without an additional suspicious focal component and likely physiological. There is diverticulosis without evidence of diverticulitis. The hollow viscera are otherwise unremarkable. The liver, gallbladder, and spleen are unremarkable. The kidneys, adrenal glands and pancreas are also unremarkable. The pelvic organs are unremarkable. There is no retroperitoneal, mesenteric, pelvic or inguinal lymphadenopathy. MUSCULOSKELETAL: There are no foci of abnormal FDG activity in the osseous structures. There are no suspicious sclerotic or lytic lesions visualized. VASCULAR: Diffuse vascular calcifications including coronary are noted. PET/PET CT fusion skull to thigh IMPRESSION: 1. An FDG avid focus in the lesser curvature of the stomach is present as described above and has significantly increased in FDG avidity and this is likely evidence of progressive malignant disease. 2. A right middle lobe proximal peribronchial FDG avid focus is slightly less intense than on the prior studies and remains nonspecific and may be inflammatory or malignant in etiology. 3. Several stable small subcentimeter pulmonary nodules are again noted and these remain too small to be characterized on the FDG PET images. 4. No additional abnormalities suspicious for other metastatic or malignant lesions are noted. 5. Diffuse vascular calcifications including coronary.
== END 2022-08-17 09:28 | disposition home or self-care (01) ==
LOC: HO.PET 09:27
PROVIDERS: PCP Internal Medicine; Visit Provider Internal Medicine
DX: Z13.89 Encounter for screening for other disorder (principal)

== ENCOUNTER 2022-09-27 14:42 | Outpatient (REF) | payer MEDICARE, SELFPAY ==
--- NOTE | ~2022-09-27 | US_ITS ---
EXAMINATION: US VENOUS ULTRASOUND WITH DOPPLER LOWER EXTREMITY, RIGHT CLINICAL INFORMATION: Swelling COMPARISON: None available. TECHNIQUE: Ultrasound of the deep veins is performed from the hip to the calf with compression sonography and color and pulse Doppler assessment. Spectral analysis with color-flow imaging is performed. FINDINGS: There is normal venous compression and respiratory variation and augmented flow. The visualized common femoral vein, superficial femoral vein, profunda femoral vein, popliteal vein, and the trifurcation region shows no evidence of deep venous thrombosis. There is no significant popliteal fossa cyst. US/US venous duplex LE RT IMPRESSION: No DVT demonstrated in the right lower extremity.
== END 2022-09-27 14:43 | disposition home or self-care (01) ==
LOC: HO.US 14:42
PROVIDERS: PCP Internal Medicine; Visit Provider Internal Medicine Medical Oncology
DX: M79.604 Pain in right leg (principal)
CPT/HCPCS: 93971

== ENCOUNTER → 2022-10-11 10:29 | Outpatient (BNVA) | payer OTHER, SELFPAY | PROVIDERS: PCP Internal Medicine; Visit Provider Internal Medicine Gastroenterology | DX: T50.905D Adverse effect of unspecified drugs, medicaments and biological substances, subsequent encounter (principal); Z85.028 Personal history of other malignant neoplasm of stomach | CPT/HCPCS: 99212 ==

== ENCOUNTER 2022-11-09 12:35 | Outpatient (REF) | payer OTHER, SELFPAY ==
--- NOTE | ~2022-11-09 | US_ITS ---
EXAMINATION: US VENOUS ULTRASOUND WITH DOPPLER LOWER EXTREMITY, RIGHT CLINICAL INFORMATION: Swelling COMPARISON: Previous right leg venous ultrasound 09/27/2022 TECHNIQUE: Ultrasound of the deep veins is performed from the hip to the calf with compression sonography and color and pulse Doppler assessment. Spectral analysis with color-flow imaging is performed. FINDINGS: There is normal venous compression and respiratory variation and augmented flow. The visualized common femoral vein, superficial femoral vein, profunda femoral vein, popliteal vein, and the trifurcation region shows no evidence of deep venous thrombosis. There is no significant popliteal fossa cyst. US/US venous duplex LE RT IMPRESSION: No DVT demonstrated in the right lower extremity.
== END 2022-11-09 12:36 | disposition home or self-care (01) ==
LOC: HO.US 12:35
PROVIDERS: PCP Internal Medicine; Visit Provider Internal Medicine
DX: C16.9 Malignant neoplasm of stomach, unspecified (principal); M79.89 Other specified soft tissue disorders; R60.9 Edema, unspecified
CPT/HCPCS: 93971

== ENCOUNTER 2024-03-06 09:58 | Outpatient (REF) | payer OTHER, SELFPAY ==
[2024-03-06 11:57] LABS: Alanine Aminotransferase 33 U/L (0-31); Alkaline Phosphatase 80 U/L (39-117); Anion Gap 11 (12-20); Aspartate Amino Transferase 45 U/L (5-31); Bilirubin Total 0.3 mg/dL (0.0-1.0); Blood Urea Nitrogen 18 mg/dL (9-16); Calcium 8.7 mg/dL (8.4-10.2); Carbon Dioxide 23 mmol/L (22-29); Chloride 112 mmol/L (96-108); Estimated Glomerular Filt Rate > 60; Glucose Random 120 mg/dL (60-115); Potassium 3.5 mmol/L (3.3-5.1); Sodium 142 mmol/L (135-145); Total Protein 5.6 g/dL (6.5-8.0)
== END 2024-03-06 09:59 | disposition home or self-care (01) ==
LOC: HO.HHCL 09:58
PROVIDERS: Visit Provider Internal Medicine
DX: I10 Essential (primary) hypertension (principal)
CPT/HCPCS: 36415; 80053

== ENCOUNTER 2024-04-02 11:28 | Day surgery (SDC) | payer OTHER, SELFPAY ==
[2024-04-02] VITALS (7 sets, daily range): BP systolic 152–178; BP diastolic 68–85; PULSE 60–66; RESP 16–18; TEMP 36.3–37.1; O2SAT 97–100; BMI 20.5
== END 2024-04-02 15:16 | disposition home or self-care (01) ==
PROVIDERS: Physician Assistant Surgical; PCP Internal Medicine; Visit Provider Internal Medicine
PROC: (CPT 36590; principal; 2024-04-02 13:30)
DX: Z45.2 Encounter for adjustment and management of vascular access device (principal); Z85.028 Personal history of other malignant neoplasm of stomach; Z90.3 Acquired absence of stomach [part of]; F32.A Depression, unspecified; I10 Essential (primary) hypertension; E78.00 Pure hypercholesterolemia, unspecified; H40.9 Unspecified glaucoma; Z79.899 Other long term (current) drug therapy; Z88.0 Allergy status to penicillin; Z87.891 Personal history of nicotine dependence
CPT/HCPCS: 36589; J2003; J2250; J2310; J3010

== ENCOUNTER → 2024-04-02 13:57 | Outpatient (BNV) | payer OTHER, SELFPAY | PROVIDERS: PCP Internal Medicine; Visit Provider Physician Assistant Surgical | DX: Z85.028 Personal history of other malignant neoplasm of stomach (principal) | CPT/HCPCS: 36590 ==

== ENCOUNTER 2024-05-25 10:53 | Outpatient (REF) | payer OTHER, SELFPAY ==
--- OUTSIDE RECORDS SUMMARY | 2024-05-25 11:44 | XMS_ITS | Encounter Summary ---
Author Organization [employer] Address [address] [facility] [address] [facility] [address] [place] [address] Care Team Providers Care Laborer Carpentry Dock Name Role Phone Yeyo Montiel MD Primary Care Provide r Reason for Visit * Reason Onset Date Comments Durable Medical Equipment 12/28/2023 Encounter Details Date Type Department Care Team (Late st Contact Info) Description 12/28/2023 Telephone [facility] MEDICINE [address] [place], [place] [phone] Yeyo Montiel MD [address] [place], [place] [phone] Durable Medical Equipment Social History Tobacco Use Types Packs/Day Years Used Date Smoking Tobacco: Former Cigarettes Passive Smoke Exposure: Past Smokeless Tobacco: Never Depression Answer Date Recorded Patient Health Questionnaire-9 Score 7 11/15/2023 Patient Health Questionnaire-9 Score 7 11/15/2023 Last PHQ-9: Questionnaire Data Not on file 0 11/15/2023 Housing Stability Answer Date Recorded What is your housing situation today? I have keyur villagomez 11/15/[address] you li ve. Do you have problems with any of the following? None of the above 11/15/2023 Food Insecurity Answer Date Recorded Within the past 12 months, y ou worried that your food would run out before you got money to buy more: Never True 11/15/2023 Within the past 12 months,th e food you bought just didn't last and you didn't have enough money to get more: Never True Transportation Answer Date Recorded In the past 12 months, has l ack of transportation kept you from medical appts, meetings, work or from getting things needed for daily living? No 11/15/2023 Utilities Answer Date Recorded In the past 12 months, has t he electric, gas, oil or water company threatened to shut off services in your home? No 11/15/2023 Depression Answer Date Recorded Patient Health Questionnaire-2 Score 2 11/15/2023 Internet Access Answer Date Recorded Internet Access Q1 Yes 12/26/2023 Internet Access Q2 Not on file 12/26/2023 Comments Unknown Sex and Gender Information Value Date Recorded Sex Assigned at Female 02/22/2022 10:39 AM EDT Legal Sex Female 10:39 AM EDT Gender Identity Female 02/22/2022 10:39 AM EDT Sexual Orientation Choose not to disclose 2021 10:39 AM EDT documented as of this encounter Miscellaneous Notes * Telephone Encounter - Fritz Duke - 12/28/2023 2:31 PM EDT Tc from [facility] with [facility] calling in regards to DME scripts for hospital bed a abbeyator walker stating pcp faxed script to an out of network medical supply vendor and so [facility] Is requestingscript be faxed to them to have equipment sent to an in network vendor. If any questions you can contact [facility] at [phone]. . documented in this encounter Plan of Treatment Not on file documented as of this encounter Visit Diagnoses Not on filedocumented in this encounter Additional Health Concerns Assessment Noted Time PHQ-9 Depression Total Score: 7 11/15/19 24 10:20 AM EDT documented as of this encounter Care Teams Laborer Carpentry Dock Relationship Specialty Start Date End Date Yeyo Montiel MD [address] [place] [phone] PCP - General Internal Medicine 03/05/21 documented as of this encounter
--- OUTSIDE RECORDS SUMMARY | 2024-05-25 11:44 | XMS_ITS | Encounter Summary ---
Author Organization [employer] Address [address] [facility] [address] [place] [address] Care Team Providers Care Weather Analyst Name Role Phone Yeyo Montiel MD Primary Care Provide r Reason for Visit * Reason Onset Date Comments Requested Call Back 11/11/2022 Encounter Details Date Type Department Care Team ([facility] st Contact Info) Description 11/11/2022 Telephone [facility] MEDICINE [address] [place], [place] [phone] Yeyo Montiel MD [address] [place], [place] [phone] Requested Call Back Social History Tobacco Use Types Packs/Day Years Used Date Smoking Tobacco: Former Cigarettes Passive Smoke Exposure: Past Smokeless Tobacco: Never Depression Answer Date Recorded Patient Health Questionnaire-9 Score 9 09/21/2022 Depression Answer Date Recorded Patient Health Questionnaire-2 Score 0 09/21/2022 Comments Unknown Sex and Gender Information Value Date Recorded Sex Assigned at Female 02/22/2022 10:39 AM EDT Legal Sex Female 10:39 AM EDT Gender Identity Female 02/22/2022 10:39 AM EDT Sexual Orientation Choose not to disclose 2021 10:39 AM EDT documented as of this encounter Miscellaneous Notes * Telephone Encounter - Debbie Irizarrynez - 11/11/2022 9:28 AM EDT Tc from patients daughter requesting a call back, in regards to a second opinion from PCP. States patient is no longer able to get chemo and hospice is set to visit the home on 11/12/22 for daughter to make the decision to have pt start on hospice. Daughter is very upset and doesn't agree but would like to speak with PCP for advise or different alternative. Patients daughter speaks albanian. documented in this encounter Plan of Treatment Not on file documented as of this encounter Visit Diagnoses Not on filedocumented in this encounter Additional Health Concerns Assessment Noted Time PHQ-9 Depression Total Score: 9 09/22/19 23 1:54 PM EDT documented as of this encounter Care Teams Weather Analyst Relationship Specialty Start Date End Date Yeyo Montiel MD [address] [place] [phone] PCP - General Internal Medicine 03/05/21 documented as of this encounter
--- OUTSIDE RECORDS SUMMARY | 2024-05-25 11:44 | XMS_ITS | Clinical Summary ---
Author Organization [employer] Address [address] [place] [address] Care Team Providers Care Chuck Wagon Driver Name Role Phone Yeyo Montiel MD Primary Care Provide r Allergies Active Allergy Reactions Criticality Noted Date Comments Penicillins Swelling High 03/13/2021 Medications latanoprost (Xalatan) 0.005 % ophthalmic solution instill 1 drop by ophthalmic route every day into affected eye(s) in the evening 2 Active cetirizine (ZyrTEC) 10 MG tabletIndications: Seasonal allergies Take 1 tablet (10 mg) by mouth in the morning. 30 tablet 2 3 Active acetaminophen (Tylenol 8 Hour) 650 MG ER tablet Take 1 tablet by mouth if needed in the morning, at noon, and at bedtime for mild pain (or fever). Active furosemide (Lasix) 40 MG tablet Take 1 tablet by mouth Once per day. 4 Active scopolamine (Transderm-Scop) 1 MG/3DAYS patch [address] 1 patch on the skin every 3rd (third) day. 4 Active Colace 100 MG capsule Take 1 capsule by mouth if needed in the morning and at bedtime for constipation. 3 Active Anti-Itch lotion APPLY TOPICALLY TO THE AFFECTED AREA FOUR TIMES DAILY FOR ITCHING 3 Active ondansetron ODT (Zofran-ODT) 8 MG disintegrating tablet DISSOLVE 1 TABLET ON THE TONGUE EVERY 8 HOURS NEEDED FOR NAUSEA 3 Active LORazepam (Ativan) 0.5 MG tabletIndications: Anxiety Take 1 tablet (0.5 mg) by mouth every 8 (eight) hours if needed for anxiety (or sleep). 60 tablet 4 Active amLODIPine (Norvasc) 2.5 MG tabletIndications: Primary hypertension Take 2 tablets (5 mg) by mouth Once per day. 30 tablet 6 4 Active Stimulant Laxative 8.6-50 MG tabletIndications: Constipation, unspecified constipation type Take 2 tablets by mouth in the evening. 90 tablet 6 4 Active mirtazapine (Remeron) 15 MG tablet TAKE 1 TABLET BY MOUTH AT BEDTIME 30 tablet 2 4 Active Active Problems Problem Noted Date Diagnosed Date Hospital discharge follow-up 05/24/2024 Assessment & Plan (05/24/2024 3:13 PM EST): Pt seen at [facility] from 05/15-05/16/2024 Pt presented to [facility] with acute abdominal/chest pain with vomiting. Her symptoms resolved with IV fluids, pain medication, and she was started on ceftriaxone and Flagyl empirically for gastroenteritis. She was given a diagnosis of acute infectious gastroenteritis. She was eventually discharged home on oral Flagyl and Cipro x 5 more days, and was kept onPantoprazole 40 mg po BID. Today pt reports she feels back top baseline Plan: Repeat BMP, apparently K was found to be low Insomnia 02/23/2024 Assessment & Plan (02/23/2024 10:28 AM EDT): Pt with insomnia and anxiety Started on Mirtazapine and Trazodone while on Hospice She also uses Lorazepam prn Herpes zoster without complication 11/15/2023 Assessment & Plan (11/15/2023 10:32 AM EDT): Pt with c/o a painful rash right side x 12 days Exam indicative of herpes Zoster all the lesions are already crusted Pt denies any pain No treatment indicated Whiplash injuries 11/04/2023 Assessment & Plan (11/15/2023 10:24 AM EDT): Here for a follow up, seen recently at our [facility] Assessment & Plan (11/04/2023 6:06 PM EDT): Pt localizes pain to posterior back muscles, but no focal tenderness. Neuro exam in tact. Due to pt being poor historian reviewed low threshold for imaging for any increased pain, behavior changes, or concerns for balance. Daughter verbalizes understanding and opts to monitor mother at home. Prn acetaminophen for pain Excess ear wax 08/11/2023 Assessment & Plan (08/11/2023 4:43 PM EDT): Pt w hearing loss w significant wax impaction in both ears , no other concerning findings on ENT exam -today staffing program manager to do ear wax removal -px today debrox prn Alzheimer's disease 07/20/2022 Glaucoma 07/20/2022 Hyperlipidemia 07/20/2022 Hypertensive disorder 07/20/2022 Assessment & Plan (05/24/2024 3:04 PM EST): Patient is here for a f/u Patient here for a follow up BP currently controlled on a regimen of: Amlodipine 2.5 mg po daily, BMP Lab Results Component Value Date NA 142 03/06/2024 NA 143 06/26/2022 K 3.5 03/06/2024 K 4.0 06/26/2022 CL 112 (H) 03/06/2024 CL 106 06/26/2022 BUN 18 (H) 03/06/2024 BUN 22 (H) 06/26/2022 CREATININE 0.62 03/06/2024 CREATININE 0.62 06/26/2022 plan: continue current treament 3 months f/u with me Assessment & Plan (02/23/2024 10:23 AM EDT): Patient is here for a f/u Patient here for a follow up BP currently controlled on a regimen of: Amlodipine 5 mg po daily, Pt's daughter tells me her BP sometimes goes low BMP Lab Results Component Value Date NA 143 06/26/2022 NA 139 08/06/2021 NA 139 08/06/2021 K 4.0 06/26/2022 K 4.2 08/06/2021 K 4.2 08/06/2021 CL 106 06/26/2022 CL 105 08/06/2021 CL 105 08/06/2021 BUN 22 (H) 06/26/2022 BUN 16 08/06/2021 BUN 16 08/06/2021 CREATININE 0.62 06/26/2022 CREATININE 0.65 08/06/2021 CREATININE 0.65 08/06/2021 plan: Decrease Amlodipine to 2.5 mg po daily 3 months f/u with me Assessment & Plan (11/15/2023 10:36 AM EDT): Patient is here for a f/u BP currently controlled on a regimen of: Amlodipine 5 mg po daily, [facility] 06/26/2022 will erpeat plan: Continue Amlodipine 3 months f/u with me Assessment & Plan (07/20/2022 1:29 PM EDT): Patient is here for a f/u BP currently controlled on a regimen of: Amlodipine 5 mg po daily, Pt's family members stopped her Losartan due to the fact that her bp was dropping [facility] 08/06/2021 plan: Continue Amlodipine 3 months f/u with me Left wrist pain 07/20/2022 Assessment & Plan (09/21/2022 2:11 PM EDT): Patient with moderate to severe left wrist pain, seen in the ER 06/26/2022 x-ray in the left wrist showed diffuse osteopenia with mild degenerative changes. I have been prescribing Tramadol 50 mg po q 12 hrs PRN. 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 More moderate osteoarthritis at the first metacarpophalangeal joint and 1st interphalangeal joint, mild radiocarpal chondrocalcinosis Assessment & Plan (07/20/2022 1:40 PM EDT): Patient with moderate to severe left wrist pain, seen in the ER 06/26/2022 x-ray in the left wrist showed diffuse osteopenia with mild degenerative changes. Plan: Add Tramadol 50 mg po q 12 hrs PRN. Pt unable to take NSAIDS Obtain CT of the left wrist to rule out metastatic disease Seasonal allergies 07/20/2022 Gastric cancer 09/06/2021 Assessment & Plan (05/24/2024 3:05 PM EST): Here for a f/u She moved to [place] from [place], lives with daughter. 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 EGD 08/20/2021 showed recurrence of adenocarcinoma She was referred back to Oncology,seen 09/03/2021 Dr Tono Riggs, she was recommended radiotherapy that she completed Pt had a repeat EGD 02/2022 that showed gastric mass worse than before. Last oncology visit on record 11/09/2022 . Given her declining health they stated she was no longer a candidate for Treatment and recommended Hospice. Hospice discharged her after 1 year of services I will continue to prescribe her medications given to her by Hospice. Pt now s/p portacath removal Assessment & Plan (02/23/2024 10:26 AM EDT): Here for a f/u She moved to [place] from [place], lives with daughter. 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 EGD 08/20/2021 showed recurrence of adenocarcinoma She was referred back to Oncology,seen 09/03/2021 Dr Tono Riggs, she was recommended radiotherapy that she completed Pt had a repeat EGD 02/2022 that showed gastric mass worse than before. Last oncology visit on record 11/09/2022 . Given her declining health they stated she was no longer a candidate for Treatment and recommended Hospice. Hospice discharged her after 1 year of services I will continue to prescribe her medications given to her by Hospice. Pt's daughters has questions regarding her portacath given that she is now OFF Hospice and would like to discuss this with Dr Borges Plan: refer back to Dr Borges Assessment & Plan (11/15/2023 10:41 AM EDT): Here for a f/u She moved to [place] from [place] back in November, lives with daughter. 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 EGD 08/20/2021 that showed recurrence of adenocarcinoma She was referred back to Oncology, seen 09/03/2021 Dr Tono Riggs, she was recommended radiotherapy that she completed Pt had a repeat EGD 02/2022 that showed gastric mass worse than before. last oncology visit on record 11/09/2022 . Given her declining health they stated she was no longer a candidate for Treatment and recommended Hospice. Hospice discharged her after 1 year of services I will continue to prescribe her medications given to her by Hospice Pt feels good today, has no complaints or concern PT NEEDS A POSITIONING BED Assessment & Plan (12/16/2022 1:19 PM EDT): Here for a f/u She moved to [place] from [place] back in November, lives with daughter. 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 EGD 08/20/2021 that showed recurrence of adenocarcinoma She was referred back to Oncology, seen 09/03/2021 Dr Tono Riggs, she was recommended radiotherapy that she has already completed Pt had a repeat EGD 02/2022 that showed gastric mass worse than before. last oncology visit on record 11/09/2022 . Given her declining health they stated she was no longer a candidate for Treatment and recommended Hospice. Today her daughter tells me she has been receiving hospice services and her condition has slowly continued to declined but she is comfortable. For now no further follow up scheduled. Pt will continue under the care of Hospice Assessment & Plan (07/20/2022 1:33 PM EDT): Here for a f/u She moved to [place] from [place] back in November, lives with daughter. 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 EGD 08/20/2021 that showed recurrence of adenocarcinoma She was referred back to Oncology, seen 09/03/2021 Dr Tono Riggs, she was recommended radiotherapy that she has already completed last oncology visit on record 12/06/2021. Pt had a repeat EGD 02/2022 that showed gastric mass worse than before Encounters Date Type Department Care Team Description 05/24/2024 3:00 PM EST Office Visit [facility] [address] [place] [address] Yeyo Montiel MD Primary hypertension (Primary Dx); Malignant neoplasm of stomach, unspecified location (CMS/HCC); Hospital discharge follow-up; Encounter for immunization 05/24/2024 Travel 05/11/2024 Telephone [facility] [address] [address] Yeyo Montiel MD Chart Prep 04/02/2024 Orders Only [facility] External Provider, [facility] 03/07/2024 Telephone [facility] [address] [place] [address] Yeyo Montiel MD Med Refill 02/29/2024 Refill [facility] [address] [place] [address] Yeyo Montiel MD 02/23/2024 10:15 AM EDT Office Visit [facility] [address] [place] [address] Yeyo Montiel MD Primary hypertension (Primary Dx); Malignant neoplasm of stomach, unspecified location (CMS/HCC); Primary insomnia; Constipation, unspecified constipation type; Encounter for immunization 02/23/2024 Travel from Last 3 Months Immunizations Name Administration Dates Next Due Influenza High-dose Quadrivalent Preservative Fr ee 02/11/2022,02/25/2021 Influenza, High Dose Seasonal, Preservative Free 02/23/2024 Moderna Covid-19 Vaccine 12+ 07/29/2020,06/27/19 21 Pneumococcal Conjugate PCV 20 05/24/2024 Tdap 02/11/2022 Social History Tobacco Use Types Packs/Day Years Used Date Smoking Tobacco: Former Cigarettes Q uit: 05/24/2014 Passive Smoke Exposure: Past Smokeless Tobacco: Never Tobacco Cessation:Counseling Given: Not Answered Comments:Pt quit about 7-10 years ago Alcohol Answer Date Recorded Frequency of Alcohol Consumption Not on file 02/23/2024 Average Number of Drinks Not on file 024 Frequency of Binge Drinking Not on file 01/25 Score 0 02/23/2024 Depression Answer Date Recorded Patient Health Questionnaire-9 [...] Access Answer Date Recorded Internet Access Q1 No 02/13/2024 Internet Access Q2 I do not want or need it 01/24 Comments Unknown Sex and Gender Information Value Date Recorded Sex Assigned at Female 02/22/2022 10:39 AM EDT Legal Sex Female 10:39 AM EDT Gender Identity Female 02/22/2022 10:39 AM EDT Sexual Orientation Choose not to disclose 2021 10:39 AM EDT Last Filed Vital Signs Vital Sign Reading Time Taken Comments Blood Pressure 141/75 05/24/2024 2:38 PM EST Pulse 85 05/24/2024 2:38 PM EST Temperature 36.2 ??C (97.1 ??F) 05/24/2024 2:38 PM ES T Respiratory Rate 20 05/24/2024 2:38 PM EST Oxygen Saturation 95% 05/24/2024 2:38 PM EST Inhaled Oxygen Concentration - - Weight 36.7 kg (81 lb) 05/24/2024 2:38 PM EST Height 140.7 cm (4' 7.38 ) 05/24/2024 2:38 PM ES T Body Mass Index 18.57 05/24/2024 2:38 PM EST Plan of Treatment Health Maintenance Due Date Last Done Comments Zoster Vaccines (1 of 2) 01/24/1992 RSV Patients and Patients Aged 60 years or older (1 - 1-dose 75+ series) 2017 COVID-19 Vaccine (4 - 2023-2 5 season) 2023 03/24/2021, 07/29/2020, 06/26/2020 Depression Screening 11/14/2024 11/15/2023, 11/15/2023 SDOH Screening 11/14/2024 11/15/2023 Alcohol/Substance Use Screening 02/22/2025 02/23/2024 Tobacco Screening 05/24/2025 05/24/2024 Lipid Panel 03/06/2026 03/06/2021 DTaP/Tdap/Td Vaccines (2 - T d or Tdap) 02/12/2032 02/11/2022 Influenza Vaccine Completed 02/23/2024, 02/11/2022, 02/25/2021 Pneumococcal Vaccine: 50+ Years Completed 05/24/2024 HIB Vaccines Aged Out No longer eligi ble based on patient's age to complete this topic HPV Vaccines Aged Out No longer eligi ble based on patient's age to complete this topic Hepatitis A Vaccines Aged Out No long er eligible based on patient's age to complete this topic Hepatitis B Vaccines Aged Out No long er eligible based on patient's age to complete this topic IPV Vaccines Aged Out No longer eligi ble based on patient's age to complete this topic Meningococcal Vaccine Aged Out No bruce aiden eligible based on patient's age to complete this topic RSV under 20 months Aged Out No longe r eligible based on patient's age to complete this topic Rotavirus Vaccines Aged Out No longer eligible based on patient's age to complete this topic Procedures Procedure Name Priority Date/Time Associated Diagnosis Comments IR CVC REMOV TUNNEL WO PRT/RESPIRATORY THERAPY MANAGER Routine 04/02/2024 1:30 PM EST COMPREHENSIVE METABOLIC PANEL Routine 03/06/2024 10:03 AM EST Primary hypertension LIPID PANEL, STANDARD Routine 03/06/2021 8:33 AM EST from Last 3 Months or Most Recently Relevant to Health Maintenance Results * IR CVC REMOV TUNNEL WO PRT/PM (04/02/2024 1:30 PM EST) Anatomical Region Laterality Modality X-Ray Angiograph y 04/02/2024 1:30 PM EST Narrative 04/12/2024 2:54 PM EST ? [facility] ?[address] ?[place] [address] ?Interventional Radiology Rpt ? Signed ? Patient: Carlos Santillan,Palak Enriquez ?MR#: [id number] ?? [id number] ? : 1940 ?Acct:[id number] ? Age/Sex: 84 / F ?ADM Date: 04/02/24 ? Loc: HO.SSS ? Attending Dr: Aicha Borges MD ? Ordering Physician: Aicha Borges MD ?? Date of Service: 04/02/24 ?? Procedure(s): IR cvc remov tunnel wo prt/bulk sealer operator ?? Accession Number(s): [id number] ? cc: Aicha Borges MD; Yeyo Daniels MD ? Port removal ? History: Patient no longer requires access for chemotherapy. Referring ?? physicians request removal. ? Procedure: The risks and benefits were discussed the patient and the ?? consent was signed. The left anterior chest was prepped and draped in ?? routine sterile fashion. The skin was anesthetized with 1% lidocaine. ?? An incision was made over the previous scar. Utilizing blunt ?? dissection, the port was removed from the chest with the catheter ?? intact. The pocket was irrigated with 50 mL of normal saline. The port ?? pocket was closed with interrupted 3-0 Vicryl sutures in the deep layer ?? and surgical glue to close the skin. The patient tolerated the ?? procedure well. A sterile dressing was applied. ? This procedure was performed by Amos Arriola PA-C, and supervised by ?? Dr. Jauregui. ? IR/IR cvc remov tunnel wo prt/bulk sealer operator ?? Impression: Left port removal ? Electronically signed by: ??Yuniel Jauregui MD ??04/12/2024 02:51 PM EST RP ? Dictated By: ?Amos Arriola ? Signed By: ?<Electronically signed by Amos Arriola in OV> ? 04/12/24 1451 ?<Electronically signed by Yuniel Jauregui MD in OV> ? 04/12/24 1454 ? DD/ 1330 ? TD/TT: 04/02/24 1440 ? Bulk Filler: ? Procedure Note Donotuseinterpreter, Image - 04/12/[address] [address] Interventional Radiology Rpt Signed Patient: Palak Zambrano EMR#: [id number] : 1940cct:[id number] Age/Sex: 84 / FADM Date: 04/02/24 Loc: HO.SSS Attending Dr: Aicha Borges MD Ordering Physician: Aicha Borges MD Date of Service: 04/02/24 Procedure(s): IR cvc remov tunnel wo prt/bulk sealer operator Accession Number(s): [id number] cc: Aicha Borges MD; Yeyo Daniels MD Port removal History: Patient no longer requires access for chemotherapy. Referring physicians request removal. Procedure: The risks and benefits were discussed the patient and the consent was signed. The left anterior chest was prepped and draped in routine sterile fashion. The skin was anesthetized with 1% lidocaine. An incision was made over the previous scar. Utilizing blunt dissection, the port was removed from the chest with the catheter intact. The pocket was irrigated with 50 mL of normal saline. The port pocket was closed with interrupted 3-0 Vicryl sutures in the deep layer and surgical glue to close the skin. The patient tolerated the procedure well. A sterile dressing was applied. This procedure was performed by Amos Arriola PA-C, and supervised by Dr. Jauregui. IR/IR cvc remov tunnel wo prt/bulk sealer operator Impression: Left port removal Electronically signed by: Yuniel Jauregui MD 04/12/2024 02:[address] [facility] Dictated By: Amos Arriola Signed By: <Electronically signed by Amos Arriola in OV> 04/12/24 1451 <Electronically signed by Yuniel Jauregui MD in OV> 04/12/24 1454 DD/ 1330 TD/TT: 04/02/24 1440 Bulk Filler: [employer] External Provider IMG IR PROCEDURES Final Result * (ABNORMAL) Comprehensive Metabolic Panel (03/06/2024 10:03 AM EST) Sodium 142 135 - 145 mmol/L [facility] Potassium 3.5 3.3 - 5.1 mmol/L [facility] Chloride 112(H) 96 - 108 mmol/L [facility] Carbon Dioxide 23 22 - 29 mmol/L [facility] Anion Gap 11(L) 12 - 20 [facility] Urea Nitrogen (BUN) 18(H) 9 - 16 mg/dL [facility] Creatinine, Serum 0.62 0.5 - 1.4 mg/dL [facility] Estimated Glomerular Filt Rate >60 [facility] Comment:Chronic Kidney Disea se: Estimated GFR < 60 mL/min/[id number] Kidney Disease: Estimated GFR < 15 mL/min/1.73m2 Glucose 120(H) 60 - 115 mg/dL [facility] Calcium 8.7 8.4 - 10.2 mg/dL [facility] Bilirubin, Total 0.3 0.0 - 1.0 mg/dL [facility] Aspartate Amino Transferase 45(H) 5 - 31 U/L [facility] Alanine Aminotransferase 33(H) 0 - 31 U/L [facility] Total Protein 5.6(L) 6.5 - 8.0 g/dL [facility] Albumin Level 3.0(L) 3.5 - 5.0 g/dL [facility] Alkaline Phosphatase 80 39 - 117 U/L [facility] Blood Venous blood specimen / Unknown 03/06/2024 10:03 AM EST 03/06/2024 11:38 AM EST Yeyo Fernandez MD LAB BLOOD ORDERABLES Final Result [facility] [address] [place] [phone] * (ABNORMAL) LIPID PANEL, STANDARD (03/06/2021 8:33 AM EST) Chol/HDLC Ratio 3.8 <5.0 (calc) [facility] Cholesterol, Total 178 <200 mg/dL [facility] HDL Cholesterol 47(L) > OR = 50 mg/dL [facility] LDL Cholesterol 105(H) mg/dL (calc) [facility] Comment: Reference range: <100 ?? Desirable range <100 mg/dL for primary prevention; ?? <70 mg/dL for patients with CHD or diabetic patients ?? with > or = 2 CHD risk factors. ?? LDL-C is now calculated using the Risa ?? calculation, which is a validated novel method providing ?? better accuracy than the Friedewald equation in the ?? estimation of LDL-C. ?? Phi GALDAMEZ et al. JOSE RAMON. 2013;310(19): 1571-0287 ?? (http://[employer]/faq/IFK231) Non-HDL Cholesterol 131(H) <130 mg/dL (calc) [facility] Comment: For patients with diabetes plus 1 major ASCVD risk ?? factor, treating to a non-HDL-C goal of <100 mg/dL ?? (LDL-C of <70 mg/dL) is considered a therapeutic ?? option. Triglycerides 145 <150 mg/dL [facility] 03/06/2021 8:33 AM EST us Yeyo Fernandez MD LAB BLOOD ORDERABLES Final Result [facility] [address] from Last 3 Months or Most Recently Relevant to Health Maintenance Insurance [facility] Advance Directives Documents on File Type Date Recorded Patient Tariff Expert Expl anation Advance Directives and Living Will 04/19/2024 Health Care Proxy 04/19/24 Care Teams Chuck Wagon Driver Relationship Specialty Start Date End Date Yeyo Montiel MD [address] [place] [address] PCP - General Internal Medicine 03/05/21
--- OUTSIDE RECORDS SUMMARY | 2024-05-25 11:44 | XMS_ITS | Encounter Summary ---
Author Organization [email or web address] Address [address] [facility] 7t [place] [address] Care Team Providers Care Cocoa Bean Roaster Helper Name Role Phone Yeyo Montiel MD Primary Care Provide r Reason for Visit * Reason Comments Med Refill Encounter Details Date Type Department Care Team ([facility] st Contact Info) Description 12/12/2023 Refill [facility] [address] [place], [place] [phone] Danyell Gonzales ANP [address] [place], [place] [phone] Social History Tobacco Use Types Packs/Day Years [...] Recorded Patient Health Questionnaire-2 Score 2 11/15/2023 Comments Unknown Sex and Gender Information Value Date Recorded Sex Assigned at Female 02/22/2022 10:39 AM EDT Legal Sex Female 10:39 AM EDT Gender Identity Female 02/22/2022 10:39 AM EDT Sexual Orientation Choose not to disclose 2021 10:39 AM EDT documented as of this encounter Plan of Treatment Not on file documented as of this encounter Visit Diagnoses Not on filedocumented in this encounter Additional Health Concerns Assessment Noted Time PHQ-9 Depression Total Score: 7 11/15/19 24 10:20 AM EDT documented as of this encounter Care Teams Cocoa Bean Roaster Helper Relationship Specialty Start Date End Date Yeyo Montiel MD [address] [place] [id number] PCP - General Internal Medicine 03/05/21 documented as of this encounter
--- OUTSIDE RECORDS SUMMARY | 2024-05-25 11:44 | XMS_ITS | Encounter Summary ---
Author Organization [employer] Address [address] [facility] 7t [place] [address] Care Team Providers Care Photogrammetric Engineer Name Role Phone Yeyo Montiel MD Primary Care Provide r Reason for Visit * Reason Onset Date Comments Appointment Request 08/24/2022 Encounter Details Date Type Department Care Team (Late st Contact Info) Description 08/24/2022 Telephone [facility] MED[facility]INE [address] [place], [place] [phone] Yeyo Montiel MD [address] [place], [place] [phone] Appointment Request Social History Tobacco Use Types Packs/Day Years Used Date Smoking Tobacco: Never Assessed Comments Unknown Sex and Gender Information Value Date Recorded Sex Assigned at Female 02/22/2022 10:39 AM EDT Legal Sex Female 10:39 AM EDT Gender Identity Female 02/22/2022 10:39 AM EDT Sexual Orientation Choose not to disclose 2021 10:39 AM EDT documented as of this encounter Miscellaneous Notes * Telephone Encounter - Kurtis Chen - 08/24/2022 10:15 AM EDT Tc from daughter requesting to r/s appt on 08/17/22 ( Follow up in about 4 weeks for wrist pain. brayden Rodriguez ) Please contact pt at [phone] documented in this encounter Plan of Treatment Not on file documented as of this encounter Visit Diagnoses Not on filedocumented in this encounter Care Teams Photogrammetric Engineer Relationship Specialty Start Date End Date Yeyo Montiel MD [address] [place] [address] PCP - General Internal Medicine 03/05/21 documented as of this encounter
--- OUTSIDE RECORDS SUMMARY | 2024-05-25 11:44 | XMS_ITS | Encounter Summary ---
Author Organization [employer] Address [address] [facility] 7t [place] [address] Care Team Providers Care Client Strategist Name Role Phone Yeyo Montiel MD Primary Care Provide r Reason for Visit * Reason Onset Date Comments Chart Prep 05/11/2024 Encounter Details Date Type Department Care Team ([facility] st Contact Info) Description 05/11/2024 Telephone [facility] MED[facility]INE 230 [place], [place] [phone] Yeyo Montiel MD [address] [place], [place] [phone] Chart Prep Social History Tobacco Use Types Packs/Day Years Used Date Smoking Tobacco: Former Cigarettes Passive Smoke Exposure: Past Smokeless Tobacco: Never Alcohol Answer Date Recorded Frequency of Alcohol [...] encounter Miscellaneous Notes * Telephone Encounter - Hortencia Diane MA - 05/11/2024 2:48 PM EST Chart Prep Labs: not done ; contacted pt's daughter with confirmed in regards to lab that hasn't been completed. Daughter expressed that she will take the pt to get it done before expected appt. Images: not applicable Vaccines due: Covid Due, PCV20 Due, RSV in Pharmacy Due, and Shingles in pharmacy Due Referrals: Oncology complete Screenings: Not Applicable Overdue care gaps: None Chart prep for upcoming appt with Dr.Esparza ramos. LB documented in this encounter Plan of Treatment Not on file documented as of this encounter Visit Diagnoses Not on filedocumented in this encounter Additional Health Concerns Assessment Noted Time PHQ-9 Depression Total Score: 7 11/15/19 24 10:20 AM EDT documented as of this encounter Care Teams Client Strategist Relationship Specialty Start Date End Date Yeyo Montiel MD [address] [place] [id number] PCP - General Internal Medicine 03/05/21 documented as of this encounter
--- OUTSIDE RECORDS SUMMARY | 2024-05-25 11:44 | XMS_ITS | Encounter Summary ---
Author Organization [employer] Address [address] [facility] 7t [place] [address] Care Team Providers Care Underwater Trapper Name Role Phone Yeyo Montiel MD Primary Care Provide r Reason for Visit * Reason Onset Date Comments FYI 12/01/2023 Encounter Details Date Type Department Care Team ([facility] st Contact Info) Description 12/01/2023 Telephone [facility] MEDICINE [address] [place], [place] [phone] Yeyo Montiel MD [address] [place], [place] [phone] FYI Social History Tobacco Use Types Packs/Day Years [...] encounter Miscellaneous Notes * Telephone Encounter - Maryjane Tillman - 12/01/2023 3:57 PM EDT Tc from [facility] calling to inform that they receive the script for Oxigen, however the information provided by us doesn't not qualify pt to receive it. documented in this encounter Plan of Treatment Not on file documented as of this encounter Visit Diagnoses Not on filedocumented in this encounter Additional Health Concerns Assessment Noted Time PHQ-9 Depression Total Score: 7 11/15/19 24 10:20 AM EDT documented as of this encounter Care Teams Underwater Trapper Relationship Specialty Start Date End Date Yeyo Montiel MD [address] [place] [address] PCP - General Internal Medicine 03/05/21 documented as of this encounter
--- OUTSIDE RECORDS SUMMARY | 2024-05-25 11:44 | XMS_ITS | Encounter Summary ---
Author Organization [employer] Address [address] [facility] 7t [place] [address] Care Team Providers Care Charge Coordinator Name Role Phone Yeyo Montiel MD Primary Care Provide r Encounter Details Date Type Department Care Team (Latest Contact Info) Description 05/24/2024 Travel Social History Tobacco Use Types Packs/Day Years Used Date Smoking Tobacco: Former Cigarettes Q uit: 05/24/2014 Passive Smoke Exposure: Past Smokeless Tobacco: Never Comments:Pt quit about 7-10 years ago Alcohol [...] documented as of this encounter Care Teams Charge Coordinator Relationship Specialty Start Date End Date Yeyo Montiel MD [address] [place] [id number] PCP - General Internal Medicine 03/05/21 documented as of this encounter
--- OUTSIDE RECORDS SUMMARY | 2024-05-25 11:44 | XMS_ITS | Encounter Summary ---
Author Organization [employer] Address [address] [facility] 7t [place] [address] Care Team Providers Care Arcade Technician Name Role Phone Yeyo Montiel MD Primary Care Provide r Reason for Visit * Reason Comments Hypertension Encounter Details Date Type Department Care Team ([facility] st Contact Info) Description 05/24/2024 3:00 PM EST Office Visit [facility] MEDICINE [address] [place], [place] [phone] Yeyo Montiel MD [address] [place], [place] [phone] Primary hypertension (Primary Dx); Malignant neoplasm of stomach, unspecified location (CMS/HCC); Hospital discharge follow-up; Encounter for immunization Social History Tobacco Use Types Packs/Day Years [...] AM EDT documented as of this encounter Last Filed Vital Signs Vital Sign Reading [...] Mass Index 18.57 05/24/2024 2:38 PM EST documented in this encounter Progress Notes * Yeyo Fernandez MD - 05/24/2024 3:00 PM EST SUBJECTIVE Palak Gonzalez is a 84 y.o. female who presents for Hypertension. Hypertension This is a chronic problem. Pertinent negatives include no chest pain, headaches or shortness of breath. Review of Systems Constitutional: Negative for fever. HENT: Negative for sore throat. Respiratory: Negative for cough and shortness of breath. Cardiovascular: Negative for chest pain. Gastrointestinal: Negative for abdominal pain. Neurological: Negative for headaches. Allergies Allergen Reactions Penicillins Swelling OBJECTIVE Vitals: 05/24/24 1438 BP: (!) 141/75 BP Location: Left arm Patient Position: Sitting BP Cuff Size: Child Pulse: 85 Resp: 20 Temp: 97.1 ??F (36.2 ??C) TempSrc: Temporal SpO2: 95% Weight: 81 lb (36.7 kg) Height: 4' 7.38 (1.407 m) Physical Exam Vitals reviewed. Constitutional: Appearance: Normal appearance. HENT: Head: Normocephalic and atraumatic. Right Ear: External ear normal. Left Ear: External ear normal. Nose: Nose normal. Mouth/Throat: Mouth: Mucous membranes are moist. Eyes: Conjunctiva/sclera: Conjunctivae normal. Cardiovascular: Rate and Rhythm: Normal rate and regular rhythm. Pulmonary: Effort: Pulmonary effort is normal. Breath sounds: Normal breath sounds. Skin: General: Skin is warm. Neurological: Mental Status: She is alert. Mental status is at baseline. Assessment/Plan Problem List Items Addressed This Visit Hypertensive disorder - Primary Patient is here for a f/u Patient [...] current treament 3 months f/u with me Relevant Orders Basic Metabolic Panel Gastric cancer (CMS/HCC) Here for a f/u She moved to [place] from [place], lives with daughter. 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 Pt now s/p portacath removal Hospital discharge follow-up [place] [facility] [place]2024 Pt presented to [facility] with acute abdominal/chest pain with vomiting. Her symptomsresolved with IV fluids, pain medication, and she was started on ceftriaxone and Flagyl empiricallyfor gastroenteritis. She was given a diagnosis of acute infectious gastroenteritis. She was eventually discharged home on oral Flagyl and Cipro x 5 more days, and was kept onPantoprazole 40 mg po BID. Today pt reports she feels back top baseline Plan: Repeat BMP, apparently K was found to be low Relevant Orders Basic Metabolic Panel documented in this encounter Miscellaneous Notes * Assessment & Plan Note - Yeyo Fernandez MD - 05/24/2024 3:13 PM EST Associated Problem(s): Hospital discharge follow-up [place] [facility] [place]16[place]2024 Pt presented to [facility] with acute abdominal/chest pain with vomiting. Her symptomsresolved with IV fluids, pain medication, and she was started on ceftriaxone and Flagyl empiricallyfor gastroenteritis. She was given a diagnosis of acute infectious gastroenteritis. She was eventually discharged home on oral Flagyl and Cipro x 5 more days, and was kept onPantoprazole 40 mg po BID. Today pt reports she feels back top baseline Plan: Repeat BMP, apparently K was found to be low * Assessment & Plan Note - Yeyo Fernandez MD - 05/24/2024 3:05 PM EST Associated Problem(s): Gastric cancer (CMS/HCC) Here for a f/u She moved to [place] from [place], lives with daughter. 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 Pt now s/p portacath removal * Assessment & Plan Note - Yeyo Fernandez MD - 05/24/2024 3:04 PM EST Associated Problem(s): Hypertensive disorder Patient is here for a f/u Patient [...] current treament 3 months f/u with me * Addendum Note - Justyna Marin RN - 05/24/2024 3:00 PM ESTAddended by: JUSTYNA MARIN on: 05/24/2024 03:27 PM Modules accepted: Orders documented in this encounter Plan of Treatment Scheduled Orders Name Type Priority Associated Diagnoses Orde r Schedule Basic Metabolic Panel Lab Routine Primary hypertension Hospital discharge follow-up Ordered: 05/24/2024 documented as of this encounter Visit Diagnoses Diagnosis Primary hypertension- Primary Unspecified essential hypertension Malignant neoplasm of stomach, unspecified location (CMS/HCC) Hospital discharge follow-up Other follow-up examination Encounter for immunization documented in this encounter Additional Health Concerns Assessment Noted Time PHQ-9 Depression Total Score: 7 11/15/19 24 10:20 AM EDT documented as of this encounter Care Teams Arcade Technician Relationship Specialty Start Date End Date Yeyo Montiel MD [address] [place] [address] PCP - General Internal Medicine 03/05/21 documented as of this encounter
--- OUTSIDE RECORDS SUMMARY | 2024-05-25 11:44 | XMS_ITS | Encounter Summary ---
Author Organization [employer] Address [address] [facility] 7t [place] [address] Care Team Providers Care Research Coordinator Name Role Phone Yeyo Montiel MD Primary Care Provide r Encounter Details Date Type Department Care Team (Late st Contact Info) Description 08/16/2022 Abstract [facility] MEDICINE [address] [place], [place] [phone] Yeyo Montiel MD [address] [place], [place] [phone] Social History Tobacco Use Types Packs/Day Years Used Date Smoking Tobacco: Never Assessed Comments Unknown Sex and Gender Information Value Date Recorded Sex Assigned at Female 02/22/2022 10:39 AM EDT Legal Sex Female 10:39 AM EDT Gender Identity Female 02/22/2022 10:39 AM EDT Sexual Orientation Choose not to disclose 2021 10:39 AM EDT COVID-19 Exposure Response Date Recorded In the last 10 days, have yo u been in contact with someone who was confirmed or suspected to have Coronavirus/COVID-19? No / Unsure 07/20/2022 12:45 PM EDT documented as of this encounter Plan of Treatment Not on file documented as of this encounter Visit Diagnoses Not on filedocumented in this encounter Care Teams Research Coordinator Relationship Specialty Start Date End Date Yeyo Montiel MD [address] [place], [place] [phone] PCP - General Internal Medicine 03/05/21 documented as of this encounter
[2024-05-25 12:30] LABS: Anion Gap 9 (12-20); Blood Urea Nitrogen 12 mg/dL (9-16); Calcium 8.5 mg/dL (8.4-10.2); Carbon Dioxide 28 mmol/L (22-29); Chloride 107 mmol/L (96-108); Estimated Glomerular Filt Rate > 60; Glucose Random 91 mg/dL (60-115); Potassium 3.9 mmol/L (3.3-5.1); Sodium 140 mmol/L (135-145)
== END 2024-05-25 10:54 | disposition home or self-care (01) ==
LOC: HO.HHCL 10:53
PROVIDERS: Visit Provider Internal Medicine
DX: I10 Essential (primary) hypertension (principal)
CPT/HCPCS: 36415; 80048

== ENCOUNTER 2025-03-13 10:11 | Outpatient (REF) | payer OTHER, SELFPAY ==
[2025-03-13 13:28] LABS: Anion Gap 8 (12-20); Blood Urea Nitrogen 17 mg/dL (9-16); Calcium 7.4 mg/dL (8.4-10.2); Carbon Dioxide 26 mmol/L (22-29); Chloride 108 mmol/L (96-108); Cholesterol 116 mg/dL (<200); Estimated Glomerular Filt Rate > 60; HDL Cholesterol 43 mg/dL (>40); Potassium 3.6 mmol/L (3.3-5.1); Sodium 138 mmol/L (135-145); Triglycerides 68 mg/dL (<150)
--- OUTSIDE RECORDS SUMMARY | 2025-03-13 19:25 | XMS_ITS ---
Author Name Daniel ROGERS, MRS. 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 Name Role Phone Geni Sanchez Unavailable [phone] [facility] Unavailable [phone] DARYL HARLEY Unavailable [phone] DULJESSENIA TIMUR Unavailable [phone] LATOSHA NEUMANN Unavailable [phone] Orders, [facility] Unavailable [phone] Reason for Referral Not Available Allergies, adverse reactions, alerts Allergen Type Reaction Severity Status Onset Date Penicillin Allergy to substance (disorder) Rash Unknown Active N/A History of medication use Medication Class Instructions Start Date End Date Mirtazapine 15 mg Tab TAKE 1 TABLET BY M OUTH AT BEDTIME 2021-09-07 No Data Available Sucralfate 1 GM/10ML Suspension SHAKE LIQUID AND TAKE 10 ML BY MOUTH TWICE DAILY 2021-09-07 2023-07-18 Capecitabine 500 mg Tab No Data Available 2021-09-16 2023-07-18 amLODIPine Besylate 5 mg Tab TAKE 0.5 TA BLET BY MOUTH EVERY DAY 2021-05-05 No Data Available Ezetimibe 10 mg Tab TAKE 1 TABLET BY MICHI TH EVERY DAY 2021-10-30 2023-07-18 Pantoprazole Sodium 40 mg Ta b delayed rel TAKE 1 TABLET BY MOUTH DAILY 2021-10-30 2022-06-01 Latanoprost 0.005 % Solution INSTILL 1 D ROP INTO AFFECTED EYES EVERY EVENING 2021-12-30 No Data Available Metoclopramide 10 mg Tab 1 tablet at bedtime PRN 03-102023-07-18 Tylenol 8hr 650 mg Tab ER 2 tablets oral ly every 8 hours as needed for pain 2022-03-10 No Data Available Ondansetron 8 mg Tab Disintegrating 1 tablet orally every 8 hours as needed nausea 2022-06-24 2024-12-11 hydrOXYzine 10 mg Tab TAKE 1 TABLET BY M OUTH AT BEDTIME 2022-10-11 2023-07-18 Ciprofloxacin 250 mg Tab TAKE 1 TABLET B Y MOUTH TWICE DAILY 2022-10-12 No Data Available Levothyroxine Sodium 25 MCG Tab TAKE 1 TABLET BY MOUTH DAILY 2022-10-20 2023-07-18 Furosemide 40 mg Tab TAKE 2 TABLETS BY M OUTH DAILY IN THE MORNING 2022-11-10 2024-12-03 Haloperidol 0.5 mg Tab TAKE 1 TABLET BY MOUTH EVERY 4 HOURS NEEDED FOR NAUSEA OR VOMITING OR AGITATION 2022-11-12 2023-07-18 Hyoscyamine Sulfate 0.125 mg Tab Sublingual DISSOLVE 1 TABLET UNDER THE TONGUE EVERY 4 HOURS NEEDED FOR SECRETIONS 2022-11-12 2024-12-03 LORazepam 0.5 mg Tab TAKE 1 TABLET BY MO UTH EVERY 4 HOURS NEEDED FOR ANXIETY OR DIFFICULT BREATHING 2022-11-12 No Data Available Morphine Sulfate (Concentrate) 100 mg/5ML Solution No Data Available 2022-11-12 No Data Available OneLAX 10 mg Suppository UNWRAP AND INSE RT 1 SUPPOSITORY RECTALLY DAILY NEEDED FOR CONSTIPATION 2022-11-12 2024-12-03 MiraLax 17 GM/SCOOP Powder mix 17 grams of powder in liquid and drink once daily as needed 2022-11-19 2024-12-03 Senna 8.6 mg Tab TAKE 2 TABLETS BY MO UTH DAILY NEEDED FOR CONSTIPATION 2022-11-19 2024-12-03 Colace 100 mg Cap TAKE ONE CAPSULE BY MOUTH TWICE DAILY NEEDED FOR CONSTIPATION 2022-11-19 2024-12-11 Anti-Itch 0.5-0.5 % Lotion APPLY TOPICAL LY TO THE AFFECTED AREA FOUR TIMES DAILY FOR ITCHING 2022-12-20 No Data Available Scopolamine 1 mg/3DAYS Patch 72hr APPLY 1 PATCH TOPICALLY TO THE SKIN EVERY 72 HOURS 2022-12-20 2023-07-18 Fleet Enema Enema TAKE 1 ENEMA RECTALL Y SINGLE DOSE 2023-01-26 2024-12-03 MAGNESIUM CITRATE SOLN GRAPE 296ML No Data Available 2023-01-26 2023-07-18 ENEMA DGPNS-AL-RNF 133ML TAKE 1 ENEMA RE CTALLY SINGLE DOSE 2023-02-02 2024-12-03 Stimulant Laxative 8.6/50 mg Tab TAKE 2 TABLETS BY MOUTH EVERY NIGHT 2023-02-02 2024-12-03 traZODone 100 mg Tab 1 tablet orally onc e daily at bedtime 2023-02-11 2024-12-03 Azithromycin 250 mg Tab No Data Available 2023-04-05 No Data Available Chest Congestion Relief 100 mg/5ML Liquid TAKE 10 ML BY MOUTH EVERY 4 HOURS NEEDED FOR COUGH 2023-04-10 No Data Available Cetirizine 10 mg Tab 1 tablet orally once daily 07-17 No Data Available Doxycycline Hyclate 100 mg Tab KIMBERLI 1 TABLETA POR LA BOCA DOS VECES AL ELMER POR 5 MONSALVE 2024-11-30 No Data Available Pantoprazole Sodium 40 mg Ta b delayed rel TAKE 1 TABLET BY MOUTH two times a day 2024-11-30 No Data Available Doxycycline Hyclate 100 mg Cap Take 1 tab PO q12h x 5 days 2024-12-03 2024-12-11 Senna-Docusate Sodium 8.6/50 mg Tab 2 tablets orally at night 2024-12-11 No Data Availa ble Problem List Problem Status Onset Date Resolved Date Synopsis Stomach ulcer Resolved 2022-06-24 2023-07-18 Sucralfate, omeprazole DC'd.Improving. Do not eat acidic foods. 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 Member is on Hospice Care. Continue to follow up with PCP. 04/30/24: Discharged from hospice in September/October 2023. Treated with chemotherapy. Last treatment in 2023. Increase physical activities as tolerated. Maintain safety and fall precautions. Follow up with PCP as indicated. Protein malnutritionBody mass index [BMI] 19.9 or less, adult Active 2023-01-20 N/A BMI: 18.13Recomm end nutritional supplements such as Ensure or Boost in between meals. Continue to follow up with PCP. 04/30/24: BMI: 19.29Improving. No longer under hospice care. Encouraged small, frequent meals high in protein as tolerated. Increase physical activities as tolerated. Maintain safety and fall precautions. Follow up with PCP as indicated. Recurrent moderate major depressive disorder with anxiety, Severe dementia with anxiety, unspecified dementia type Active 2022-03-25 N/A RX: Lorazepam, Mirtazapine, TrazodoneNotify provider with any changes in behavior, difficulty sleeping, or new/worsening depressive symptoms.Continue to follow up with PCP. 04/30/24: PHQ-9 score: 13, RASHEED-7 score: 14No longer under hospice care. Continue medications as directed. Encouraged relaxation, reassurance, and redirection techniques as needed. Increase physical activities as tolerated. Maintain safety and fall precautions. Follow up with PCP as indicated. HTN (hypertension) Inactive 2022-03-25 N/A RX: Am lodipine, Furosemide Encourage low sodium diet. Encouraged daily blood pressure checks and tracking. Instructed patient to notify CB or PCP if blood pressure >140/90 or <90/50.Continue to follow up with PCP. HLD (hyperlipidemia) Inactive 2022-03-25 N/A Avoi d foods high in fatContinue w/ exercise regimen and lifestyle modificationsNot currently taking medications. Continue to follow up with PCP. Glaucoma Inactive 2022-03-25 N/A Continue takin g latanoprost as prescribedF/u w/ margarine churn operator to check IOP Other problems related to medical facilities and other health care Active 2023-07-18 N/A CONTINGENCY PLANDementia Member to call for the following symptoms: Increased anxiety/ Increased agitation/ More aggressive/ Trouble sleeping at nightPlanned intervention: Encourage increased fluid intakeAsk about last bowel movementAssess for UTI symptoms; if present, start Macrobid 100mg BID x5 daysLimit extra stimulation.DEMENTIA CONTINGENCY PLANLast updated: 04/30/2024Member to call for the following symptoms: Aggression/ Delirium/ WithdrawnPlanned intervention: Place order for urinalysis and culture; family to take sample to lab/ Encourage increased fluid intake/ Ask about last bowel movement/ Assess for UTI symptoms; if present, start Macrobid 100mg BID x5 days/ Limit extra stimulation.RESPIRATO RY INFECTION CONTINGENCY PLANLast updated: 12/11/2024Member to call for the following symptoms: Fever/ Difficulty breathing/ Chest pain/ Change in sputum/ Symptoms lasting >10 days/ Cough/ Change in behaviorPlanned intervention: Azithromycin 500mg day 1, then 250mg for 4 days / Benzonatate 100mg PO q8h PRN cough/ Start albuterol inhaler to q2h PRN cough, breathlessness / Tylenol as needed for fever Immunodeficiency Active 2024-04-30 N/A Weakened immune system, encourage hand washing, avoid large crowds, stay up to date on vaccines (annual flu), monitor for and report early any s/s of infection. Other nonthrombocytopenic purpura, Other pancytopenia Active 2023-07-18 N/A Vianney tor for s/s of bleeding. Continue to follow up with PCP. 04/30/24: Stable. Easily bruised and bleeding. Discussed fall and safety precautions. Encouraged skin checks daily and report unusual bleeding or wounds. Discussed importance of routine labs and physical exams as directed. Follow up with PCP as indicated. Hospital discharge follow-up, Viral gastroenteritis, Pneumonia Active 2024-12-11 N/A :84 year old female with history of gastric cancer (previously on hospice until September 2024, but outlived it), hypertension, dementia, depression brought to the hospital with c/o nausea and vomiting and abdominal pain for three days. She was admitted for pneumonia and gastroenteritis. Abdominal symptoms improved and diet advanced. She was seen by GI and no further interventions were needed as symptoms or deemed likely from viral gastroenteritis and already resolving. At morning of discharge she had tolerated breakfasts without nausea and vomiting and her abdominal pain had improved. She was stable for discharge with prescription for prn Zofran and oral antibiotic (doxycycline 100 mg BID x 5 days) for pneumonia which she completed.-symptoms resolved-tolerating food well-PCP follow up: 12/18/24-continue chronic medications as prescribed-reminded of CB 15/11 access line. Encounters Encounters Type Facility Date of Service Diagnosis/Co mplaint New patient,40-59min; chronic exacerbation, 2 stable chronic or 1 acute illness add add modifier 95 for video (do not use for phone, instead use [id number]) [facility] [place] Malignant neoplasm of pylori c antrumEssential (primary) hypertensionHyperlipidemia, unspecifiedUnspecified glaucomaGastroparesisDepression, unspecifiedGastro-esophageal reflux disease without esophagitis New patient,40-59min; chronic exacerbation, 2 stable chronic or 1 acute illness add add modifier 95 for video (do not use for phone, instead use [id number]) [facility] [place] New patient,40-59min; chronic exacerbation, 2 stable chronic or 1 acute illness add add modifier 95 for video (do not use for phone, instead use 23857-09) [facility] [place] New patient,40-59min; chronic exacerbation, 2 stable chronic or 1 acute illness add add modifier 95 for video (do not use for phone, instead use 36788-69) [facility] [place] New patient,40-59min; chronic exacerbation, 2 stable chronic or 1 acute illness add add modifier 95 for video (do not use for phone, instead use 13601-70) [facility] [place] New patient,40-59min; chronic exacerbation, 2 stable chronic or 1 acute illness add add modifier 95 for video (do not use for phone, instead use 05120-49) [facility] [place] New patient,40-59min; chronic exacerbation, 2 stable chronic or 1 acute illness add add modifier 95 for video (do not use for phone, instead use 69352-36) [facility] [place] New patient,40-59min; chronic exacerbation, 2 stable chronic or 1 acute illness add add modifier 95 for video (do not use for phone, instead use 18297-29) [facility] [place] New patient,40-59min; chronic exacerbation, 2 stable chronic or 1 acute illness add add modifier 95 for video (do not use for phone, instead use 09305-30) [facility] [place] New patient,40-59min; chronic exacerbation, 2 stable chronic or 1 acute illness add add modifier 95 for video (do not use for phone, instead use [id number]) [facility] [place] No Data Available [facility] [place] Malignant neoplasm of pylori c antrumEssential (primary) hypertensionHyperlipidemia, unspecifiedUnspecified glaucomaGastroparesisMajor depressive disorder, single episode, in partial remissionGastro-esophageal reflux disease without esophagitis No Data Available [facility] [place] Estab. patient 30-39min; chronic exacerbation, 2 stable chronic or 1 acute illness add add modifier 95 for video, (do not use for phone, instead use 29975-34) [facility] [place] Malignant neoplasm of pylori c antrumEssential (primary) hypertensionHyperlipidemia, unspecifiedUnspecified glaucomaGastroparesisMajor depressive disorder, single episode, in partial remissionGastro-esophageal reflux disease without esophagitisAnorexiaGastric ulcer, unsp as acute or chronic, w/o hemor or perf Estab. patient 30-39min; chronic exacerbation, 2 stable chronic or 1 acute illness add add modifier 95 for video, (do not use for phone, instead use 42760-49) [facility] [place] Estab. patient 30-39min; chronic exacerbation, 2 stable chronic or 1 acute illness add add modifier 95 for video, (do not use for phone, instead use 30257-15) [facility] [place] Estab. patient 30-39min; chronic exacerbation, 2 stable chronic or 1 acute illness add add modifier 95 for video, (do not use for phone, instead use 64376-06) [facility] [place] Estab. patient 30-39min; chronic exacerbation, 2 stable chronic or 1 acute illness add add modifier 95 for video, (do not use for phone, instead use 08805-95) [facility] [place] Estab. patient 30-39min; chronic exacerbation, 2 stable chronic or 1 acute illness add add modifier 95 for video, (do not use for phone, instead use 87334-37) [facility] [place] Estab. patient 30-39min; chronic exacerbation, 2 stable chronic or 1 acute illness add add modifier 95 for video, (do not use for phone, instead use 20734-98) [facility] [place] Estab. patient 30-39min; chronic exacerbation, 2 stable chronic or 1 acute illness add add modifier 95 for video, (do not use for phone, instead use [id number]) [facility] [place]2023 Malignant neoplasm of pylori c antrumEssential (primary) hypertensionHyperlipidemia, unspecifiedUnspecified glaucomaGastroparesisMajor depressive disorder, single episode, in partial remissionGastro-esophageal reflux disease without esophagitisAnorexiaGastric ulcer, unsp as acute or chronic, w/o hemor or perfAlzheimer's disease with late onsetDementia in other diseases classified elsewhere, severe, with psychotic disturbanceUnspecified protein-calorie malnutritionBody mass index (BMI) 19 or less, adult Estab. patient 30-39min; chronic exacerbation, 2 stable chronic or 1 acute illness add add modifier 95 for video, (do not use for phone, instead use 91052-58) [facility] [place] Estab. patient 30-39min; chronic exacerbation, 2 stable chronic or 1 acute illness add add modifier 95 for video, (do not use for phone, instead use 78423-55) [facility] [place] Estab. patient 30-39min; chronic exacerbation, 2 stable chronic or 1 acute illness add add modifier 95 for video, (do not use for phone, instead use [id number]) [facility] [place] Estab. patient 30-39min; chronic exacerbation, 2 stable chronic or 1 acute illness add add modifier 95 for video, (do not use for phone, instead use [id number]) [facility] [place] Estab. patient 30-39min; chronic exacerbation, 2 stable chronic or 1 acute illness add add modifier 95 for video, (do not use for phone, instead use 09645-27) [facility] [place] Estab. patient 30-39min; chronic exacerbation, 2 stable chronic or 1 acute illness add add modifier 95 for video, (do not use for phone, instead use [id number]) [facility] [place] Estab. patient 30-39min; chronic exacerbation, 2 stable chronic or 1 acute illness add add modifier 95 for video, (do not use for phone, instead use 13827-20) [facility] [place] Malignant neoplasm of pylori c antrumMalignant neoplasm of stomach, unspecifiedMajor depressive disorder, single episode, in partial remissionUnspecified dementia, severe, without behavioral disturbance, psychotic disturbance, mood disturbance, and anxietyOther nonthrombocytopenic purpuraUnspecified protein-calorie malnutritionBody mass index (BMI) 19 or less, adultGeneralized anxiety disorderEssential (primary) hypertensionHyperlipidemia, unspecifiedUnspecified glaucomaOther problems related to medical facilities and other health care Estab. patient 30-39min; chronic exacerbation, 2 stable chronic or 1 acute illness add add modifier 95 for video, (do not use for phone, instead use 43178-87) [facility] [place] Estab. patient 30-39min; chronic exacerbation, 2 stable chronic or 1 acute illness add add modifier 95 for video, (do not use for phone, instead use 03133-38) [facility] [place] Estab. patient 30-39min; chronic exacerbation, 2 stable chronic or 1 acute illness add add modifier 95 for video, (do not use for phone, instead use 48959-81) [facility] [place] Estab. patient 30-39min; chronic exacerbation, 2 stable chronic or 1 acute illness add add modifier 95 for video, (do not use for phone, instead use 49935-52) [facility] [place] Estab. patient 30-39min; chronic exacerbation, 2 stable chronic or 1 acute illness add add modifier 95 for video, (do not use for phone, instead use 15267-73) [facility] [place] Estab. patient 30-39min; chronic exacerbation, 2 stable chronic or 1 acute illness add add modifier 95 for video, (do not use for phone, instead use 74244-36) [facility] [place] Estab. patient 30-39min; chronic exacerbation, 2 stable chronic or 1 acute illness add add modifier 95 for video, (do not use for phone, instead use 94117-58) [facility] [place] Estab. patient 30-39min; chronic exacerbation, 2 stable chronic or 1 acute illness add add modifier 95 for video, (do not use for phone, instead use 75395-20) [facility] [place] Estab. patient 30-39min; chronic exacerbation, 2 stable chronic or 1 acute illness add add modifier 95 for video, (do not use for phone, instead use 19407-77) [facility] [place]18[place] Estab. patient 30-39min; chronic exacerbation, 2 stable chronic or 1 acute illness add add modifier 95 for video, (do not use for phone, instead use 59760-01) [facility] [place]24 Malignant neoplasm of pylori c antrumMalignant neoplasm of stomach, unspecifiedMajor depressive disorder, recurrent, moderateAnxiety disorder, unspecifiedUnspecified dementia, severe, with anxietyOther nonthrombocytopenic purpuraOther pancytopeniaUnspecified protein-calorie malnutritionOther problems related to medical facilities and other health careBody mass index (BMI) 19 or less, adult Estab. patient 30-39min; chronic exacerbation, 2 stable chronic or 1 acute illness add add modifier 95 for video, (do not use for phone, instead use 27466-24) [facility] [place] Estab. patient 30-39min; chronic exacerbation, 2 stable chronic or 1 acute illness add add modifier 95 for video, (do not use for phone, instead use 50342-38) [facility] [place] Estab. patient 30-39min; chronic exacerbation, 2 stable chronic or 1 acute illness add add modifier 95 for video, (do not use for phone, instead use 68263-35) [facility] [place] Estab. patient 30-39min; chronic exacerbation, 2 stable chronic or 1 acute illness add add modifier 95 for video, (do not use for phone, instead use 60104-78) [facility] [place] Estab. patient 30-39min; chronic exacerbation, 2 stable chronic or 1 acute illness add add modifier 95 for video, (do not use for phone, instead use 22017-98) [facility] [place] Estab. patient 30-39min; chronic exacerbation, 2 stable chronic or 1 acute illness add add modifier 95 for video, (do not use for phone, instead use 52538-51) [facility] [place] Estab. patient 30-39min; chronic exacerbation, 2 stable chronic or 1 acute illness add add modifier 95 for video, (do not use for phone, instead use 06066-80) [facility] [place] Estab. patient 30-39min; chronic exacerbation, 2 stable chronic or 1 acute illness add add modifier 95 for video, (do not use for phone, instead use 48148-74) [facility] [place] Estab. patient 30-39min; chronic exacerbation, 2 stable chronic or 1 acute illness add add modifier 95 for video, (do not use for phone, instead use 01844-79) [facility] [place] Estab. patient 30-39min; chronic exacerbation, 2 stable chronic or 1 acute illness add add modifier 95 for video, (do not use for phone, instead use 43517-28) [facility] [place] Estab. patient 10-29min; 1 minor problem; add add modifier 95 for video, modifier 93 for phone [facility] [place]24 Viral intestinal infection, unspecifiedPneumonia, unspecified organismEncntr for f/u exam aft trtmt for cond oth than malig neoplmOther problems related to medical facilities and other health care Estab. patient 10-29min; 1 minor problem; add add modifier 95 for video, modifier 93 for phone [facility] [place] Estab. patient 10-29min; 1 minor problem; add add modifier 95 for video, modifier 93 for phone [facility] [place] Estab. patient 10-29min; 1 minor problem; add add modifier 95 for video, modifier 93 for phone [facility] [place] Estab. patient 10-29min; 1 minor problem; add add modifier 95 for video, modifier 93 for phone [facility] [place] RN, CN or CP time with patient by phone; use with 1111F, BP, A1c or other CPTII codes [facility] [place] Encounter for other specifie d aftercare RN, CN or CP time with patient by phone; use with 1111F, BP, A1c or other CPTII codes [facility] [place] Vital Signs Date of Collection Vitals 2022-03-10 07:07:58 Height - 134.62 cmWe ight - 46.27 kgBody Mass Index (BMI) - 25.53 kg/m2BP Diastolic - 75.0 mm[Hg]BP Systolic - 143.0 mm[Hg]Heart Rate - 83.0 /min 2023-01-20 13:06:11 Height - 139.7 cmWei ght - 34.02 kgBody Mass Index (BMI) - 17.43 kg/m2BP Diastolic - 68.0 mm[Hg]BP Systolic - 122.0 mm[Hg]Pain Scale - 3.0 {score} 2023-07-18 11:13:47 Weight - 35.38 kgBod y Mass Index (BMI) - 18.13 kg/m2BP Diastolic - 63.0 mm[Hg]BP Systolic - 117.0 mm[Hg]Pain Scale - 0.0 {score} 2024-04-30 13:26:06 Height - 139.7 cmWei ght - 37.65 kgBody Mass Index (BMI) - 19.29 kg/m2BP Diastolic - 79.0 mm[Hg]BP Systolic - 129.0 mm[Hg]Pain Scale - 4.0 {score} 2024-12-11 11:18:09 Height - 138.0 cmWei ght - 35.5 kgBody Mass Index (BMI) - 18.64 kg/m2BP Diastolic - 55.0 mm[Hg]BP Systolic - 123.0 mm[Hg] Social History Social History Social History Observation Description Effec tive Time Current Smoking Status Former smoker 2025-02-24 0 Sex Female History of Procedures Procedures Service Procedure code Service date Servicing provider Phone# New patient,40-59min; chronic exacerbation, 2 stable chronic or 1 acute illness add add modifier 95 for video (do not use for phone, instead use [id number]) [id number] 2022-03-10 No Data Available No Data Availa ble Pain Assessment - NO pain present (1126F) 1126F 2022-03-10 No Data Available No Data A vailable Medication List Documented (1159F) 1159F 2022-03-10 No Data Available No Data Latasha ilable Medication Review by prescribing provider or pharmacist documented (1160F) 1160F 2022-03-10 No Data Available No Data Latasha ilable Functional Status Assessed (1170F) 1170F 2022-03-10 No Data Available No Data Avail able Advance Care Directive Advance care planning discussion documented in the medical record (1158F) 1158F 2022-03-10 No Data Available No Data Availa ble BMI obtained (3008F) 3008F 2022-03-10 No Data Availab le No Data Available Pain Assessment - Pain Documented on a Pain Scale (1125F) 1125F 2022-03-10 No Data Available No Data Latasha ilable SBP >= 140 3077F 2022-03-10 No Data Available No Data Available DBP <80 (3078F) 3078F 2022-03-10 No Data Available No Data Available No Data Available [id number] 2022-06-01 No Data Available No Data Available Pain Assessment - Pain Documented on a Pain Scale (1125F) 1125F 2022-06-01 No Data Available No Data Latasha ilable Estab. patient 30-39min; chronic exacerbation, 2 stable chronic or 1 acute illness add add modifier 95 for video, (do not use for phone, instead use [id number]) 29360 2022-06-24 No Data Available No Data Availa ble Medication List Documented (1159F) 1159F 2022-06-24 No Data Available No Data Latasha ilable Medication Review by prescribing provider or pharmacist documented (1160F) 1160F 2022-06-24 No Data Available No Data Latasha ilable Functional Status Assessed (1170F) 1170F 2022-06-24 No Data Available No Data Avail able Advance Care Directive Advance care planning discussion documented in the medical record (1158F) 1158F 2022-06-24 No Data Available No Data Availa ble BMI obtained (3008F) 3008F 2022-06-24 No Data Availab le No Data Available Pain Assessment - Pain Documented on a Pain Scale (1125F) 1125F 2022-06-24 No Data Available No Data Latasha ilable Estab. patient 30-39min; chronic exacerbation, 2 stable chronic or 1 acute illness add add modifier 95 for video, (do not use for phone, instead use [id number]) 06501 2023-01-20 No Data Available No Data Availa ble Functional Status Assessed (1170F) 1170F 2023-01-20 No Data Available No Data Avail able Pain Assessment - Pain Documented on a Pain Scale (1125F) 1125F 2023-01-20 No Data Available No Data Latasha ilable Advance Care Directive Advance care planning discussion documented in the medical record (1158F) 1158F 2023-01-20 No Data Available No Data Availa ble BMI obtained (3008F) 3008F 2023-01-20 No Data Availab le No Data Available SBP < 130 (3074F) 3074F 2023-01-20 No Data Available No Data Available DBP <80 (3078F) 3078F 2023-01-20 No Data Available No Data Available Estab. patient 30-39min; chronic exacerbation, 2 stable chronic or 1 acute illness add add modifier 95 for video, (do not use for phone, instead use [id number]) 33128 2023-07-18 No Data Available No Data Availa ble Advance care planning discussed and documented advance care plan or surrogate decision-maker was documented in the medical record. (1123F) 1123F 2023-07-18 No Data Available No Data Availa ble Functional Status Assessed (1170F) 1170F 2023-07-18 No Data Available No Data Avail able Medication List Documented (1159F) 1159F 2023-07-18 No Data Available No Data Latasha ilable Medication Review by prescribing provider or pharmacist documented (1160F) 1160F 2023-07-18 No Data Available No Data Latasha ilable Pain Assessment - NO pain present (1126F) 1126F 2023-07-18 No Data Available No Data A vailable BMI obtained (3008F) 3008F 2023-07-18 No Data Availab le No Data Available Advance Care Directive Advance care planning discussion documented in the medical record (1158F) 1158F 2023-07-18 No Data Available No Data Availa ble SBP < 130 (3074F) 3074F 2023-07-18 No Data Available No Data Available DBP <80 (3078F) 3078F 2023-07-18 No Data Available No Data Available Estab. patient 30-39min; chronic exacerbation, 2 stable chronic or 1 acute illness add add modifier 95 for video, (do not use for phone, instead use [id number]) 36413 2024-04-30 No Data Available No Data Availa ble Medication List Documented (1159F) 1159F 2024-04-30 No Data Available No Data Latasha ilable Medication Review by prescribing provider or pharmacist documented (1160F) 1160F 2024-04-30 No Data Available No Data Latasha ilable Functional Status Assessed (1170F) 1170F 2024-04-30 No Data Available No Data Avail able Pain Assessment - Pain Documented on a Pain Scale (1125F) 1125F 2024-04-30 No Data Available No Data Latasha ilable BMI obtained (3008F) 3008F 2024-04-30 No Data Availab le No Data Available Advance Care Directive Advance care planning discussion documented in the medical record (1158F) 1158F 2024-04-30 No Data Available No Data Availa ble Advance care planning discussed and documented advance care plan or surrogate decision-maker was documented in the medical record. (1123F) 1123F 2024-04-30 No Data Available No Data Availa ble SBP < 130 (3074F) 3074F 2024-04-30 No Data Available No Data Available DBP <80 (3078F) 3078F 2024-04-30 No Data Available No Data Available No Data Available G8431 2024-04-30 No Data Available No Data Available Estab. patient 10-29min; 1 minor problem; add add modifier 95 for video, modifier 93 for phone 04758 2024-12-11 No Data Available No Data Availa ble Medications prescribed in hospital were reviewed and reconciled against what they were taking prior to admission during today's visit. (1111F) 1111F 2024-12-11 No Data Available No Data Availa ble Medication List Documented (1159F) 1159F 2024-12-11 No Data Available No Data Latasha ilable SBP < 130 (3074F) 3074F 2024-12-11 No Data Available No Data Available DBP <80 (3078F) 3078F 2024-12-11 No Data Available No Data Available RN, CN or CP time with patient by phone; use with 1111F, BP, A1c or other CPTII codes 08618 2024-12-03 No Data Available No Data Avai lable Medications prescribed in hospital were reviewed and reconciled against what they were taking prior to admission during today's visit. (1111F) 1111F 2024-12-03 No Data Available No Data Availa ble Functional Status Functional Category Effective Dates ADL: Bathing Needs Assistanc e , Dressing Needs Assistance , Eating Needs Assistance , Ambulation Needs Assistance , Transferring Needs Assistance and Toileting Needs Assistance 2023-07-18 Falls in last 6 Months: No 2023-07-18 IADL: Medication Needs Jona tance , Meal Prep Needs Assistance , Shopping Needs Assistance , Driving or Public Transport Needs Assistance , Housework Needs Assistance and Finances Needs Assistance 2023-07-18 Social Supports - # of Inter actions with Friends/Family in a typical week: Daily 2023-07-18 Mental Status Status Date Cognition Status: Dementia - severe (all ADL assist or non-verbal) 2023-07-18 Assessments Date of Service Assessments 2022-03-10 07:07:58 Malignant neoplasm o f pyloric antrumHTN (hypertension)HLD (hyperlipidemia)GlaucomaGastroparesisDepressionGERD (gastroesophageal reflux disease) 2022-06-01 07:30:36 Malignant neoplasm o f pyloric antrumHTN (hypertension) - stableHLD (hyperlipidemia) - stableGlaucoma - stableGastroparesisDepression, major, in partial remission - stableGERD (gastroesophageal reflux disease) - stable 2022-06-24 08:11:28 Malignant neoplasm o f pyloric antrumHTN (hypertension) - stableHLD (hyperlipidemia) - stableGlaucoma - stableGastroparesis - stableDepression, major, in partial remission - stableGERD (gastroesophageal reflux disease) - stableLoss of appetiteStomach ulcer - stable 2023-01-20 13:06:11 Malignant neoplasm o f pyloric antrumHTN (hypertension)HLD (hyperlipidemia)GlaucomaGastroparesisDepression, major, in partial remissionGERD (gastroesophageal reflux disease)Loss of appetiteStomach ulcerSevere late onset Alzheimer's dementia with psychotic disturbanceProtein malnutrition 2023-07-18 11:13:47 Malignant neoplasm o f pyloric antrumMalignant neoplasm of stomachDepression, major, in partial remissionGAD (generalized anxiety disorder)Severe dementiaOther nonthrombocytopenic purpuraProtein malnutritionBody mass index [BMI] 19.9 or less, adultHTN (hypertension)HLD (hyperlipidemia)GlaucomaOther problems related to medical facilities and other health care 2024-04-30 13:26:06 Other problems relat ed to medical facilities and other health careMalignant neoplasm of pyloric antrumMalignant neoplasm of stomachRecurrent moderate major depressive disorder with anxiety, Severe dementia with anxiety, unspecified dementia typeOther nonthrombocytopenic purpura, Other pancytopeniaProtein malnutritionBody mass index [BMI] 19.9 or less, adultImmunodeficiency 2024-12-11 11:18:09 Hospital discharge f ollow-up, Viral gastroenteritis, PneumoniaOther problems related to medical facilities and other health care Plan of Care Date of Service Plans 2022-03-10 07:07:58 Pain Assessment - Pa in Documented (1125F)Medication Review by prescribing provider or pharmacist documented (1160F)Medication List Documented (1159F)Functional Status Assessed (1170F)Advance Care Directive Advance care planning discussion documented in the medical record (1158F)BMI obtained (3008F)SBP >= 140DBP <80 (3078F)Televideo new patient,40-59min; chronic exacerbation, 2 stable chronic or 1 acute illness add modifier 95Continue to see PCP. Follow-up with Khadijah as needed for any acute or disease education needs that may arise.on Capecitabine 500 mg TabAvoid foods high in saltContinue w/ exercise regimen and lifestyle modificationsContinue taking amlodipine as prescribedCheck BP weekly and report any elevated readingsAvoid foods high in fatContinue w/ exercise regimen and lifestyle modificationsContinue taking Ezetimibe as prescribed Check lipid levels yearlyContinue taking latanoprost as prescribedF/u w/ margarine churn operator to check IOPContinue taking metoclopramide as prescribedFollowed by PCPContinue taking mirtazapine as prescribedContinue taking pantoprazole as prescribedContinue Lifestyle modifications, HOB elevation, avoid spicy food, caffeine, soda 2022-06-01 07:30:36 Televideo 20-29min; 1 stable chronic or 2 minor; add modifier 95Pain Assessment - Pain Documented (1125F)Continue to see PCP. Follow-up with Khadijah as needed for any acute or disease education needs that may arise 15/11.on Capecitabine 500 mg TabIn chemo, treatment 4 out of 6Doing wellAvoid foods high in saltContinue w/ exercise regimen and lifestyle modificationsContinue taking amlodipine as prescribedCheck BP weekly and report any elevated readingsAvoid foods high in fatContinue w/ exercise regimen and lifestyle modificationsContinue taking Ezetimibe as prescribed Check lipid levels yearlyContinue taking latanoprost as prescribedF/u w/ margarine churn operator to check IOPContinue taking metoclopramide as prescribedDC pantoprazole (interaction w chemo) - taking sucralfateFollowed by PCPContinue taking mirtazapine as prescribedPantoprazole DC'd (chemo interaction) - taking sucralfate.Continue Lifestyle modifications, HOB elevation, avoid spicy food, caffeine, soda 2022-06-24 08:11:28 Medication Review by prescribing provider or pharmacist documented (1160F)Medication List Documented (1159F)Functional Status Assessed (1170F)Advance Care Directive Advance care planning discussion documented in the medical record (1158F)BMI obtained (3008F)Televideo 30-39min; chronic exacerbation, 2 stable chronic or 1 acute illness add modifier 95Pain Assessment - Pain Documented (1125F)Continue to see PCP. Follow-up with Khadijah as needed for any acute or disease education needs that may arise.on Capecitabine 500 mg TabDoing wellIn chemo still, just had 4th treatment out of 6Avoid foods high in saltContinue w/ exercise regimen and lifestyle modificationsContinue taking amlodipine as prescribedCheck BP weekly and report any elevated readingsAvoid foods high in fatContinue w/ exercise regimen and lifestyle modificationsContinue taking Ezetimibe as prescribed Check lipid levels yearlyContinue taking latanoprost as prescribedF/u w/ margarine churn operator to check IOPContinue taking metoclopramide as prescribedDC pantoprazole (interaction w chemo) - taking sucralfateFollowed by PCPContinue taking mirtazapine as prescribedPantoprazole DC'd (chemo interaction) - taking sucralfate.Continue Lifestyle modifications, HOB elevation, avoid spicy food, caffeine, sodaSince chemo beganHas ensure but in the past it has made her vomit.will try to drink slowly.Sucralfate, omeprazole DC'd.Improving. Do not eat acidic foods. 2023-01-20 13:06:11 Televideo 10-29min; 1 minor problem; add modifier 95SBP < 130 (3074F)DBP <80 (3078F)BMI obtained (3008F)Continue to see PCP. Follow-up with [facility] as needed for any acute or disease education needs that may arise 15/11.on Capecitabine 500 mg Tabchemo x 6 txfinished Chemo 10/2022started Ensure Juice (strawberry) and Milk (strawberry and vanilla). 2 milkshake per day. Does not eat other foods, does not eat rice or broths. not eating, has lost weight-- daughter has to give her smoothies, oatmeal, soft foods-- member can no longer feed herself.Avoid foods high in saltContinue w/ exercise regimen and lifestyle modificationsContinue taking amlodipine as prescribedCheck BP weekly and report any elevated readingsAvoid foods high in fatContinue w/ exercise regimen and lifestyle modificationsContinue taking Ezetimibe as prescribed Check lipid levels yearlyContinue taking latanoprost as prescribedF/u w/ margarine churn operator to check IOPContinue taking metoclopramide as prescribedDC pantoprazole (interaction w chemo) - taking sucralfateFollowed by PCPContinue taking mirtazapine as prescribedPantoprazole DC'd (chemo interaction) - taking sucralfate.Continue Lifestyle modifications, HOB elevation, avoid spicy food, caffeine, sodaSince chemo beganHas ensure but in the past it has made her vomit.will try to drink slowly.Sucralfate, omeprazole DC'd.Improving. Do not eat acidic foods.dx 2021FAST score:01/20/23: BMI 16.81lack of apetite Since chemo beganHas ensure but in the past it has made her vomit.will try to drink slowly.started Ensure Juice (strawberry) and Milk (strawberry and vanilla). 2 milkshake per day. Does not eat other foods, does not eat rice or broths. 2023-07-18 11:13:47 Medication Review by prescribing provider or pharmacist documented (1160F)Medication List Documented (1159F)Functional Status Assessed (1170F)Advance Care Directive Advance care planning discussion documented in the medical record (1158F)BMI obtained (3008F)SBP < 130 (3074F)DBP <80 (3078F)Televideo 30-39min; chronic exacerbation, 2 stable chronic or 1 acute illness add modifier 95Advance care planning discussed and documented advance care plan or surrogate decision-maker was documented in the medical record. (1123F)Pain Assessment - NO pain documented (1126F)Continue to see PCP. Follow-up with [facility] as needed for any acute or disease education needs that may arise.Not actively being treated for cancer. Member is on Hospice Care. Continue to follow up with PCP.RX: Lorazepam, Mirtazapine, TrazodoneNotify provider with any changes in behavior, difficulty sleeping, or new/worsening depressive symptoms.Continue to follow up with PCP.Diagnosed 2021Not currently taking medications. Continue to follow up with PCP.Monitor for s/s of bleeding. Continue to follow up with PCP.BMI: 18.13Recommend nutritional supplements such as Ensure or Boost in between meals. Continue to follow up with PCP.RX: Amlodipine, Furosemide Encourage low sodium diet. Encouraged daily blood pressure checks and tracking. Instructed patient to notify CB or PCP if blood pressure >140/90 or <90/50.Continue to follow up with PCP.Avoid foods high in fatContinue w/ exercise regimen and lifestyle modificationsNot currently taking medications. Continue to follow up with PCP.Continue taking latanoprost as prescribedF/u w/ margarine churn operator to check IOPCONTINGENCY PLANDementia Member to call for the following symptoms: Increased anxiety/ Increased agitation/ More aggressive/ Trouble sleeping at nightPlanned intervention: Encourage increased fluid intakeAsk about last bowel movementAssess for UTI symptoms; if present, start Macrobid 100mg BID x5 daysLimit extra stimulationAt least 50% of time spent counseling patient, discussing diagnosis, treatment plan, compliance, and coordinating follow up care. 2024-04-30 13:26:06 Televideo 30-39min; chronic exacerbation, 2 stable chronic or 1 acute illness add modifier 95Functional Status Assessed (1170F)BMI obtained (3008F)Advance Care Directive Advance care planning discussion documented in the medical record (1158F)Advance care planning discussed and documented advance care plan or surrogate decision-maker was documented in the medical record. (1123F)SBP 130-139 (3075F)DBP <80 (3078F)Pain Assessment - Pain Documented (1125F)Medication List Documented (1159F)Continue to see PCP. Follow-up with [facility] as needed for any acute or disease education needs that may arise.CONTINGENCY PLANDementia Member to call for the following symptoms: Increased anxiety/ Increased agitation/ More aggressive/ Trouble sleeping at nightPlanned intervention: Encourage increased fluid intakeAsk about last bowel movementAssess for UTI symptoms; if present, start Macrobid 100mg BID x5 daysLimit extra stimulation.DEMENTIA CONTINGENCY PLANLast updated: 04/30/2024Member to call for the following symptoms: Aggression/ Delirium/ WithdrawnPlanned intervention: Place order for urinalysis and culture; family to take sample to lab/ Encourage increased fluid intake/ Ask about last bowel movement/ Assess for UTI symptoms; if present, start Macrobid 100mg BID x5 days/ Limit extra stimulation.Not actively being treated for cancer. Member is on Hospice Care. Continue to follow up with PCP. 04/30/24: Discharged from hospice in September/October 2023. Treated with chemotherapy. Last treatment in 2023. Increase physical activities as tolerated. Maintain safety and fall precautions. Follow up with PCP as indicated.RX: Lorazepam, Mirtazapine, TrazodoneNotify provider with any changes in behavior, difficulty sleeping, or new/worsening depressive symptoms.Continue to follow up with PCP. 04/30/24: PHQ-9 score: 13, RASHEED-7 score: 14No longer under hospice care. Continue medications as directed. Encouraged relaxation, reassurance, and redirection techniques as needed. Increase physical activities as tolerated. Maintain safety and fall precautions. Follow up with PCP as indicated.Monitor for s/s of bleeding. Continue to follow up with PCP. 04/30/24: Stable. Easily bruised and bleeding. Discussed fall and safety precautions. Encouraged skin checks daily and report unusual bleeding or wounds. Discussed importance of routine labs and physical exams as directed. Follow up with PCP as indicated.BMI: 18.13Recommend nutritional supplements such as Ensure or Boost in between meals. Continue to follow up with PCP. 04/30/24: BMI: 19.29Improving. No longer under hospice care. Encouraged small, frequent meals high in protein as tolerated. Increase physical activities as tolerated. Maintain safety and fall precautions. Follow up with PCP as indicated.Weakened immune system, encourage hand washing, avoid large crowds, stay up to date on vaccines (annual flu), monitor for and report early any s/s of infection. 2024-12-11 11:18:09 Discharge medication s reconciled with current medication listEstab. patient 10-29min; 1 minor problem; add add modifier 95 for video, modifier 93 for phoneMedications prescribed in hospital were reviewed and reconciled against what they were taking prior to admission during today's visit. (1111F)Continue to see PCP. Follow-up with [facility] as needed for any acute or disease education needs that may arise.12/11/24:84 year old female with history of gastric cancer (previously on hospice until September 2024, but outlived it), hypertension, dementia, depression brought to the hospital with c/o nausea and vomiting and abdominal pain for three days. She was admitted for pneumonia and gastroenteritis. Abdominal symptoms improved and diet advanced. She was seen by GI and no further interventions were needed as symptoms or deemed likely from viral gastroenteritis and already resolving. At morning of discharge she had tolerated breakfasts without nausea and vomiting and her abdominal pain had improved. She was stable for discharge with prescription for prn Zofran and oral antibiotic (doxycycline 100 mg BID x 5 days) for pneumonia which she completed.-symptoms resolved-tolerating food well-PCP follow up: 12/18/24-continue chronic medications as prescribed-reminded of 15/11 access line.CONTINGENCY PLANDementia Member to call for the following symptoms: Increased anxiety/ Increased agitation/ More aggressive/ Trouble sleeping at nightPlanned intervention: Encourage increased fluid intakeAsk about last bowel movementAssess for UTI symptoms; if present, start Macrobid 100mg BID x5 daysLimit extra stimulation.DEMENTIA CONTINGENCY PLANLast updated: 04/30/2024[facility] to call for the following symptoms: Aggression/ Delirium/ WithdrawnPlanned intervention: Place order for urinalysis and culture; family to take sample to lab/ Encourage increased fluid intake/ Ask about last bowel movement/ Assess for UTI symptoms; if present, start Macrobid 100mg BID x5 days/ Limit extra stimulation.RESPIRATORY INFECTION CONTINGENCY PLANLast updated: 12/11/2024[facility] to call for the following symptoms: Fever/ Difficulty breathing/ Chest pain/ Change in sputum/ Symptoms lasting >10 days/ Cough/ Change in behaviorPlanned intervention: Azithromycin 500mg day 1, then 250mg for 4 days / Benzonatate 100mg PO q8h PRN cough/ Start albuterol inhaler to q2h PRN cough, breathlessness / Tylenol as needed for fever 2024-12-03 10:21:05 12/11 Goals Date Goal 2022-03-10 Remember to keep all upcoming appts 2022-03-10 Call me if 2022-03-10 Call me if You are f eeling sick or ill 2022-03-10 Keep it up 2022-03-10 Keep it up with exer cise regimen 2022-06-01 1: Remember to sneha nue all meds as directed2: Call me if you Call me if you have any questions3: I encourage you to call your [facility] or your PCP if you have any medical needs. 2023-07-18 Continue taking medi cations as directed and keep all follow up appointments with established PCP and Specialist. 2024-04-30 Remember to follow u p with PCP and specialists as directed.Call if you have any questions, comments, or concerns.Keep taking your medications as prescribed. 2024-12-11 Patient Education to avoid future hospitalization: Call [facility] if symptoms of illness develop. 2024-12-11 Continue taking medi cations as directed and keep all follow up appointments with established PCP and Specialist. Health Concerns Date Concern 2024-12-11 Patient/Guardian agr eed to visit via telehealth.Visit completed via:[ ] audio and video; [x] audio only 2024-12-11 Informed verbal cons ent was obtained from this patient to communicate and provide care using virtual and other telecommunications tools. 2024-12-11 [facility]: [facility]Discharge date: 11/30/24Reason for hospitalization: nausea, vomiting, abdominal painSummary of hospital course: 84 year old female with history of gastric cancer (previously on hospice until September 2023, but outlived it), hypertension, dementia, depression brought to the hospital with c/o nausea and vomiting and abdominal pain for three days. She was admitted for pneumonia and gastroenteritis. Abdominal symptoms improved and diet advanced. She was seen by GI and no further interventions were needed as symptoms or deemed likely from viral gastroenteritis and already resolving. At morning of discharge she had tolerated breakfasts without nausea and vomiting and her abdominal pain had improved. She was stable for discharge with prescription for prn Zofran and oral antibiotic (doxycycline 100 mg BID x 5 days) for pneumonia which she completed.Per daughter, member is doing very well. She reports no more nausea, vomiting. Stooling/voiding without acute issues. Reports tolerating meals and is eating more now. She reports member completed abx for pneumonia. Denies fever, cough, sob, chest pain. She has appt with PCP on 12/18/24. No other concerns/needs reported today. Medications reviewed/reconciled today and listed below.Current issues/current symptoms/outstanding follow-up needs: none at this timePCP Follow-Up: appt scheduled for 12/18/24 at 2:15 pm
== END 2025-03-13 10:12 | disposition home or self-care (01) ==
LOC: HO.HHCL 10:11
PROVIDERS: PCP Internal Medicine; Visit Provider Internal Medicine
DX: Z13.6 Encounter for screening for cardiovascular disorders (principal)
CPT/HCPCS: 36415; 80048; 80061

== ENCOUNTER 2025-03-14 13:24 | Outpatient (REF) | payer OTHER, SELFPAY ==
--- OUTSIDE RECORDS SUMMARY | 2025-03-12 15:15 | XMS_ITS | Encounter Summary ---
Author Organization [employer] Address [address] [place] [address] Care Team Providers Care Nightman Name Role Phone Yeyo Montiel MD Primary Care Provide r Encounter Details Date Type Department Care Team ([facility] st Contact Info) Description 03/12/2025 3:15 PM EST Office Visit [facility] MEDICINE [address], [place] [phone] Yeyo Montiel MD [address], [place] [phone] Primary hypertension (Primary Dx); Urinary incontinence without sensory awareness; Acute cough; Encounter for immunization Social History Tobacco Use [...] housing situation today? I have keyur villagomez 12/18/[address] you li ve. Do you have problems with any of the following? None of the above 12/18/2024 Food Insecurity Answer Date Recorded Within the past 12 months, y ou worried that your food would run out before you got money to buy more: Never True 12/18/2024 Within the past 12 months,th e food you bought just didn't last and you didn't have enough money to get more: Never True Transportation Answer Date Recorded In the past 12 months, has l ack of transportation kept you from medical appts, meetings, work or from getting things needed for daily living? No 12/18/2024 Utilities Answer Date Recorded In the past 12 months, has t he electric, gas, oil or water company threatened to shut off services in your home? No 12/18/2024 Depression Answer Date Recorded Patient Health Questionnaire-2 Score 3 12/18/2024 Internet Access Answer Date Recorded Internet Access Q1 Yes 02/22/2025 Internet Access Q2 Not on file 02/22/2025 Comments Unknown Sex and Gender Information Value Date Recorded Sex Assigned at Female 02/22/2022 10:39 AM EDT Legal Sex Female 10:39 AM EDT Gender Identity Female 02/22/2022 10:39 AM EDT Sexual Orientation Choose not to disclose 2021 10:39 AM EDT documented as of this encounter Last Filed Vital Signs Vital Sign Reading Time Taken Comments Blood Pressure 110/66 03/12/2025 3:34 PM EST Pulse 88 03/12/2025 3:34 PM EST Temperature 36.8 C (98.2 F) 03/12/2025 3:34 PM EST Respiratory Rate 20 03/12/2025 3:34 PM EST Oxygen Saturation - - Inhaled Oxygen Concentration - - Weight 34.1 kg (75 lb 2 oz) 03/12/2025 3:[address] Height 139.7 cm (4' 7 ) 03/12/2025 3:34 PM EST Body Mass Index 17.46 03/12/2025 3:34 PM EST documented in this encounter Progress Notes * Yeyo Fernandez MD - 03/12/2025 3:15 PM EST SUBJECTIVE Palak Gonzalez is a 85 y.o. female who presents for No chief complaint on file.. Palak Gonzalez, age 85 years Urinary Incontinence - Ongoing urinary incontinence, requires use of towels and diapers - Urine leakage occurs frequently, including overnight - Caregiver reports need to clean furniture due to urine odor Cough - Dry cough started approximately 3 days prior to visit - Cough occurs mostly at night Travel Plans - Plans to travel to [facility] from April 02, 2025 to May 19, 2025 COVID Vaccination History - Last COVID vaccine received approximately 2-3 years ago HPI Review of Systems Constitutional: Negative for fever. HENT: Negative for sore throat. Respiratory: Negative for cough and shortness of breath. Cardiovascular: Negative for chest pain. Gastrointestinal: Negative for abdominal pain. Neurological: Negative for headaches. Allergies[1] OBJECTIVE Vitals: 03/12/25 1534 BP: 110/66 BP Location: Left arm Patient Position: Sitting BP Cuff Size: Child Pulse: 88 Resp: 20 Temp: 98.2 ??F (36.8 ??C) TempSrc: Oral Weight: 75 lb 2 oz (34.1 kg) Height: 4' 7 (1.397 m) Physical Exam Vitals reviewed. Constitutional: Appearance: [...] Assessment/Plan Problem List Items Addressed This Visit Primary hypertension - Primary Patient is here for a f/u BP currently controlled on a regimen of: Amlodipine 2.5 mg po daily, Lab Results Component Value Date NA 140 05/25/2024 NA 142 03/06/2024 K 3.9 05/25/2024 K 3.5 03/06/2024 CL 107 05/25/2024 CL 112 (H) 03/06/2024 BUN 12 05/25/2024 BUN 18 (H) 03/06/2024 CREATININE 0.64 05/25/2024 CREATININE 0.62 03/06/2024 plan: continue current treatment, repeat BMP 3 months f/u with me Relevant Orders Basic Metabolic Panel Lipid Panel, Standard Urinary incontinence without sensory awareness Patient with persistent urinary incontinence, pt unaware of loss of continence Numerous times throughout the day Needs incontinence supplies Acute cough Dry, no fever Lungs CTA B Rapid flu and covid+ negative Supportive measures Relevant Medications guaiFENesin (Robitussin) 100 MG/5ML liquid Other Relevant Orders POCT Rapid Covid-19 BALDWIN ID NOW POCT Rapid Influenza B BALDWIN ID NOW (Completed) POCT Rapid Influenza A BALDWIN ID NOW (Completed) Other Visit Diagnoses Encounter for immunization Relevant Orders COVID-19 VACCINE [id number] (Comirnaty) 19 yrs + (Completed) FLU VACCINE TRIVALENT HIGH DOSE [id number] (Fluzone) 65 yrs + (Completed) This note was drafted using Ambient (AI) technology. The patient/patient's guardian has been informed and has consented to the use of this technology: Yes No future appointments. [1] Allergies Allergen Reactions Penicillins Swelling documented in this encounter Miscellaneous Notes * Assessment & Plan Note - Yeyo Fernandez MD - 03/12/2025 3:49 PM EST Associated Problem(s): Acute cough Dry, no fever Lungs CTA B Rapid flu and covid+ negative Supportive measures * Assessment & Plan Note - Yeyo Fernandez MD - 03/12/2025 3:47 PM EST Associated Problem(s): Urinary incontinence without sensory awareness Patient with persistent urinary incontinence, pt unaware of loss of continence Numerous times throughout the day Needs incontinence supplies * Assessment & Plan Note - Yeyo Fernandez MD - 03/12/2025 3:40 PM EST Associated Problem(s): Primary hypertension Patient is here for a f/u BP currently controlled on a regimen of: Amlodipine 2.5 mg po daily, Lab Results Component Value Date NA 140 05/25/2024 NA 142 03/06/2024 K 3.9 05/25/2024 K 3.5 03/06/2024 CL 107 05/25/2024 CL 112 (H) 03/06/2024 BUN 12 05/25/2024 BUN 18 (H) 03/06/2024 CREATININE 0.64 05/25/2024 CREATININE 0.62 03/06/2024 plan: continue current treatment, repeat BMP 3 months f/u with me documented in this encounter Plan of Treatment Upcoming Encounters Date Type Department Care Team (Late st Contact Info) Description 06/13/2025 2:15 PM EST Office Visit [facility] MEDICINE [address] [place] [address] Yeyo Montiel MD [address] [place] [address] documented as of this encounter Procedures Procedure Name Priority Date/Time Associated Diagnosis Comments LIPID PANEL, STANDARD Routine 03/13/2025 10:21 AM EST Primary hypertension BASIC METABOLIC PANEL Routine 03/13/2025 10:21 AM EST Primary hypertension POCT INFLUENZA B (ID NOW RAPID MOLECULAR) Routine 03/12/2025 4:17 PM EST Acute cough POCT COVID-19 AG BALDWIN ID NOW Routine 03/12/2025 4:17 PM EST Acute cough POCT INFLUENZA A (ID NOW RAPID MOLECULAR) Routine 03/12/2025 4:16 PM EST Acute cough documented in this encounter Results * Lipid Panel, Standard (03/13/2025 10:21 AM EST) Triglycerides 68 <150 mg/dL [facility] Comment:Desirable Triglyceri de: less than 150 mg/dLBorderline High Triglyceride 150-199 mg/dLHigh Triglyceride: 200-499 mg/dLVery High Triglyceride: greater than or equal to 5OO mg/dL Cholesterol 116 <200 mg/dL [facility] Comment:Desirable Cholestero l: less than 200 mg/dLBorderline High Cholesterol: 200-239 mg/dLHigh Cholesterol: greater than 239 mg/dL LDL Cholesterol Calculated 60 <100 mg/dL [facility] Comment:Desirable LDL: less than 100 mg/dLNear Optimal/Above Optimal LDL: 110- 129 mg/dLBorderline High LDL: 130-159 mg/dLHigh LDL: 160-189 mg/dLVery High LDL: greater than or equal to 190 mg/dL HDL Cholesterol 43 >40 mg/dL [facility] Comment:Desirable HDL: great er than 40 mg/dL Note: This HDL assay may give artificially low results in patients with liver disease. Blood Venous blood specimen / Unknown 03/13/2025 10:21 AM EST 03/13/2025 11:01 AM EST us Yeyo Fernandez MD LAB BLOOD ORDERABLES Final Result [facility] [address] [place], [place] [phone] * (ABNORMAL) Basic Metabolic Panel (03/13/2025 10:21 AM EST) Sodium 138 135 - 145 mmol/L [facility] Potassium 3.6 3.3 - 5.1 mmol/L [facility] Chloride 108 96 - 108 mmol/L [facility] Carbon Dioxide 26 22 - 29 mmol/L [facility] Anion Gap 8(L) 12 - 20 [facility] Urea Nitrogen (BUN) 17(H) 9 - 16 mg/dL [facility] Creatinine, Serum 0.58 0.5 - 1.4 mg/dL [facility] Estimated Glomerular Filt Rate >60 [facility] Comment:Chronic Kidney Disea se: Estimated GFR < 60 mL/min/[id number] Kidney Disease: Estimated GFR < 15 mL/min/1.73m2 Glucose 92 60 - 115 mg/dL [facility] Calcium 7.4(L) 8.4 - 10.2 mg/dL [facility] Blood Venous blood specimen / Unknown 03/13/2025 10:21 AM EST 03/13/2025 11:01 AM EST us Yeyo Fernandez MD LAB BLOOD ORDERABLES Final Result Performing Organization Address City/[facility]/ZIP Co de Phone Number [facility] [address] [place] [phone] * POCT Rapid Influenza B BALDWIN ID NOW (03/12/2025 4:17 PM EST) Pathologist [facility] Influenza B Negative Negative, Indeterminate [facility] QC Media Lot # [id number] [facility] Lot# Expiration Date [facility] Swab 03/12/2025 4:17 PM EST us Yeyo Fernandez MD POINT OF CARE TEST EN TER/EDIT ORDERABLES Final Result Performing Organization Address City/[facility]/ZIP Co de Phone Number [facility] [address] [place] [phone] * POCT Rapid Covid-19 BALDWIN ID NOW (03/12/2025 4:17 PM EST) Pathologist [facility] Coronavirus Antigen PCR Negative Negative, Indeterminate, None Detected, Invalid, Specimen unsatisfactory for evaluation, Weakly Positive, 2+ QC Media Lot # [id number] Lot# Expiration Date Swab 03/12/2025 4:17 PM EST us Yeyo Fernandez MD POINT OF CARE TEST EN TER/EDIT ORDERABLES Final Result * POCT Rapid Influenza A BALDWIN ID NOW (03/12/2025 4:16 PM EST) Influenza A Negative Negative, Indeterminate [facility] QC Media Lot # [id number] [facility] Lot# Expiration Date [facility] Swab 03/12/2025 4:16 PM EST us Yeyo Fernandez MD POINT OF CARE TEST EN TER/EDIT ORDERABLES Final Result [facility] [address] [place] [phone] documented in this encounter Visit Diagnoses Diagnosis Primary hypertension- Primary Unspecified essential hypertension Urinary incontinence without sensory awareness Incontinence without sensory awareness Acute cough Encounter for immunization documented in this encounter Additional Health Concerns Assessment Noted Time PHQ-9 Depression Total Score: 7 11/15/19 24 10:20 AM EDT documented as of this encounter Care Teams Nightman Relationship Specialty Start Date End Date Yeyo Montiel MD [address] [place] [phone] PCP - General Internal Medicine 03/05/21 documented as of this encounter
[2025-03-14 16:18] LABS: Magnesium 2.1 mg/dL (1.6-2.6)
[2025-03-14 16:33] LABS: Parathyroid Hormone Intact 41.8 pg/mL (8.7-77.1)
--- OUTSIDE RECORDS SUMMARY | 2025-03-14 18:56 | XMS_ITS | Encounter Summary ---
Author Organization [employer] Address [address] [facility] 7t [place] [address] Care Team Providers Care Orthodontic Assistant Name Role Phone Yeyo Montiel MD Primary Care Provide r Reason for Visit * Reason Onset Date Comments Requested Call Back 11/11/2022 Encounter Details Date Type Department Care Team ([facility] st Contact Info) Description 11/11/2022 Telephone [facility] [address] [place], [place] [phone] Yeyo Montiel MD [address] [place] [address] Requested Call Back Social History Tobacco Use [...] Miscellaneous Notes * Telephone Encounter - Debbie Causey - 11/11/2022 9:28 AM EDT Tc from [...] advise or different alternative. Patients daughter speaks austrian. documented in this encounter Plan of Treatment Upcoming Encounters Date Type Department Care Team (Late st Contact Info) Description 06/13/2025 2:15 PM EST Office Visit [facility] [address] [place] [address] Yeyo Montiel MD [address] [place] [address] documented as of this encounter Visit Diagnoses Not on filedocumented in this encounter Additional Health Concerns Assessment Noted Time PHQ-9 Depression Total Score: 9 09/22/19 23 1:54 PM EDT documented as of this encounter Care Teams Orthodontic Assistant Relationship Specialty Start Date End Date eYyo Montiel MD [address] [place] [address] PCP - General Internal Medicine 03/05/21 documented as of this encounter
--- OUTSIDE RECORDS SUMMARY | 2025-03-14 18:56 | XMS_ITS | Clinical Summary ---
Author Organization [employer] Address 75 [facility] 7t [place] [address] Care Team Providers Care Private Branch Exchange Operator Name Role Phone Yeyo Montiel MD Primary Care Provide r Allergies Active Allergy Reactions Criticality Noted Date Comments Penicillins Swelling High 03/13/2021 Medications latanoprost (Xalatan) 0.005 % ophthalmic solution instill 1 drop by ophthalmic route every day into affected eye(s) in the evening 12/31/19 22 Active cetirizine (ZyrTEC) 10 MG tabletIndication s:Seasonal allergies Take 1 tablet (10 mg) by mouth in the morning. 30 tablet 2 07/21/19 23 Active acetaminophen (Tylenol 8 Hour) 650 MG ER tablet Take 1 tablet by mouth if needed in the morning, at noon, and at bedtime for mild pain (or fever). Active Anti-Itch lotion APPLY TOPICALLY TO THE AFFECTED AREA FOUR TIMES DAILY FOR ITCHING 12/21/19 23 Active Stimulant Laxative 8.6-50 MG tabletIndication s:Constipation, unspecified constipation type Take 2 tablets by mouth in the evening. 90 tablet 6 02/23/20 24 Active ondansetron (Zofran) 4 MG tablet Take 1 tablet by mouth every 8 (eight) hours if needed for nausea or vomiting. 12/01/19 25 Active pantoprazole (ProtoNix) 40 MG EC tablet Take 1 tablet by mouth 2 times daily. 12/01/19 25 Active LORazepam (Ativan) 0.5 MG tabletIndication s:Anxiety TAKE 1 TABLET(0.5 MG) BY MOUTH EVERY 8 HOURS NEEDED FOR ANXIETY OR SLEEP 60 tablet 12/19/19 25 Active scopolamine (Transderm-Scop) 1 MG/3DAYS patch 72 hourIndications: Nausea APPLY 1 PATCH TOPICALLY TO THE SKIN EVERY 72 HOURS 10 patch 1 03/05/20 Active amLODIPine (Norvasc) 2.5 MG tabletIndication s:Primary hypertension TAKE 2 TABLETS(5 MG) BY MOUTH DAILY 180 tablet 1 03/12/20 Active mirtazapine (Remeron) 15 MG tablet TAKE 1 TABLET BY MOUTH AT BEDTIME 30 tablet 2 03/12/20 Active guaiFENesin (Robitussin) 100 MG/5ML liquidIndication s:Acute cough Take 10 mL (200 mg) by mouth if needed in the morning, at noon, and at bedtime for cough for up to 10 days. 120 mL 03/12/20 25 Active mirtazapine (Remeron) 15 MG tablet TAKE 1 TABLET BY MOUTH AT BEDTIME 30 tablet 2 10/24/19 25 Discontinued amLODIPine (Norvasc) 2.5 MG tabletIndication s:Primary hypertension TAKE 2 TABLETS(5 MG) BY MOUTH DAILY 180 tablet 1 12/19/19 025 Discontinued scopolamine (Transderm-Scop) 1 MG/3DAYS patch [address]: [address] 1 patch on the skin every 3rd (third) day. 10 patch 1 12/19/19 025 Discontinued Active Problems Problem Noted Date Diagnosed Date Acute cough 03/12/2025 Assessment & Plan (03/12/2025 3:49 PM EST): Dry, no fever Lungs CTA B Rapid flu and covid+ negative Supportive measures Urinary incontinence without sensory awareness 0 12/18/2024 Assessment & Plan (03/12/2025 3:47 PM EST): Patient with persistent urinary incontinence, pt unaware of loss of continence Numerous times throughout the day Needs incontinence supplies Assessment & Plan (12/18/2024 2:03 PM EDT): Patient with urinary incontinence Needs incontinence supplies Hospital discharge follow-up 05/24/2024 Assessment & Plan (12/18/2024 1:50 PM EDT): Pt seen at [facility] from 11/29-11/30/2024 Patient presented for evaluation of abdominal pain. Found to have pneumonia and gastroenteritis. Treated with IV ceftriaxone and azithromycin. Transitioned to PO abx prior to discharge. Seen by GI, no further interventions recommended, symptoms thought to be likely from viral gastroenteritis. Symptoms improved and patient was discharged home on abx for pneumonia. Assessment & Plan (05/24/2024 3:13 PM EST): Pt seen at [facility] from 05/15-05/16/2024 Pt presented to [facility] with acute abdominal/chest pain with vomiting. Her [...] be low Insomnia 02/23/2024 Assessment & Plan (09/13/2024 1:59 PM EDT): Pt with insomnia and anxiety Started on Mirtazapine while on Hospice She also uses Lorazepam prn Assessment & Plan (02/23/2024 10:28 AM EDT): [...] a follow up, seen recently at our [facility] Assessment & Plan (11/04/2023 6:06 PM EDT): [...] other concerning findings on ENT exam -today staff nuclear weapons officer to do ear wax removal -px today debrox prn Glaucoma 07/20/2022 Hyperlipidemia 07/20/2022 Primary hypertension 07/20/2022 Assessment & Plan (03/12/2025 3:40 PM EST): Patient is here for a f/u BP [...] repeat BMP 3 months f/u with me Assessment & Plan (12/18/2024 1:50 PM EDT): Patient is here for a f/u BP currently controlled on a regimen of: Amlodipine 2.5 mg po daily, Lab Results Component Value Date NA 140 05/25/2024 NA 142 03/06/2024 K 3.9 05/25/2024 K 3.5 03/06/2024 CL 107 05/25/2024 CL 112 (H) 03/06/2024 BUN 12 05/25/2024 BUN 18 (H) 03/06/2024 CREATININE 0.64 05/25/2024 CREATININE 0.62 03/06/2024 plan: continue current treament 3 months f/u with me Assessment & Plan (09/13/2024 1:46 PM EDT): Patient is here for a f/u Patient here for a follow up BP currently controlled on a regimen of: Amlodipine 2.5 mg po daily, BMP Lab Results Component Value Date NA 140 05/25/2024 NA 142 03/06/2024 K 3.9 05/25/2024 K 3.5 03/06/2024 CL 107 05/25/2024 CL 112 (H) 03/06/2024 BUN 12 05/25/2024 BUN 18 (H) 03/06/2024 CREATININE 0.64 05/25/2024 CREATININE 0.62 03/06/2024 plan: continue current treament 3 months f/u with me Assessment & Plan (05/24/2024 3:04 PM EST): [...] regimen of: Amlodipine 5 mg po daily, [facility] 06/26/2022 will erpeat plan: Continue Amlodipine 3 months f/u with me Assessment & Plan (07/20/2022 1:29 PM EDT): Patient is here for a f/u BP currently controlled on a regimen of: Amlodipine 5 mg po daily, Pt's family members stopped her Losartan due to the fact that her bp was dropping [facility] 08/06/2021 plan: Continue Amlodipine 3 months [...] metastatic disease Seasonal allergies 07/20/2022 Gastric cancer ([facility]/HCC) 09/06/2021 Assessment & Plan (12/18/2024 1:51 PM EDT): Patient here for a f/u She moved to [place] from [place], lives with daughter. Diagnosed with adenocarcinoma of [...] and abdomen /pelvis with contrast 11/2020 at [facility] which did not show any evidence of [...] a candidate for Treatment and recommended Hospice. She outlived Hospice and was discharged her after 1 year of services I will continue to prescribe her medications given to her by Hospice. Assessment & Plan (05/24/2024 3:05 PM EST): Here for a f/u She moved to [place] from [place], lives with daughter. Diagnosed with adenocarcinoma of [...] and abdomen /pelvis with contrast 11/2020 at [facility] which did not show any evidence of [...] Here for a f/u She moved to [place] from [place], lives with daughter. Diagnosed with adenocarcinoma of [...] and abdomen /pelvis with contrast 11/2020 at [facility] which did not show any evidence of [...] Here for a f/u She moved to [place] from [place] back in November, lives with daughter. Diagnosed [...] and abdomen /pelvis with contrast 11/2020 at [facility] which did not show any evidence of [...] Here for a f/u She moved to [place] from [place] back in November, lives with daughter. Diagnosed [...] and abdomen /pelvis with contrast 11/2020 at [facility] which did not show any evidence of [...] Here for a f/u She moved to [place] from [place] back in November, lives with daughter. Diagnosed [...] and abdomen /pelvis with contrast 11/2020 at [facility] which did not show any evidence of recurrence. EGD 08/20/2021 that showed recurrence of adenocarcinoma She was referred back to Oncology, seen 09/03/2021 Dr Tono Riggs, she was recommended radiotherapy that she has already completed last oncology visit on record 12/06/2021. Pt had a repeat EGD 02/2022 that showed gastric mass worse than before Resolved Problems Problem Noted Date Diagnosed Date Resolved Date Alzheimer's disease 07/20/2022 12/19/19 25 Encounters Date Type Department Care Team Description 03/13/2025 Results Follow-Up [facility] [place] [address] Yeyo Montiel MD Basic Metabolic Panel, Lipid Panel, Standard, POCT Rapid Covid-19 [place] ID NOW, Additional followed-up results: 2 03/12/2025 3:15 PM EST Office Visit [facility] [place] [address] Yeyo Montiel MD Primary hypertension (Primary Dx); Urinary incontinence without sensory awareness; Acute cough; Encounter for immunization 03/12/2025 Travel 03/11/2025 Telephone [facility] [place] [address] Yeyo Montiel MD chart prep 03/11/2025 Telephone [facility] [place] [address] Yeyo Montiel MD r/s appt 03/09/2025 Refill [facility] [address] [place] [address] Yeyo Montiel MD Primary hypertension 03/08/2025 Telephone [facility] [address] [place] [address] Yeyo Monitel MD Durable Medical Equipment 03/03/2025 Refill [facility] [address] [facility] [place] [address] Yeyo Montiel MD Nausea 12/18/2024 2:15 PM EDT Office Visit [facility] [address] [place] [address] Yeyo Montiel MD Hospital discharge follow-up (Primary Dx); Primary hypertension; Malignant neoplasm of stomach, unspecified location (CMS/HCC); Nausea; Urinary incontinence, unspecified type 12/18/2024 Telephone [facility] [address] [facility] [place] [address] Yeyo Montiel MD Durable Medical Equipment 12/18/2024 Travel 12/18/2024 Refill [facility] [address] [place] [address] Yeyo Montiel MD Anxiety; Primary hypertension from Last 3 Months Immunizations Immunization Administration Dates Next Due Influenza High-dose Quadrivalent Preservative Fr ee 02/11/2022,02/25/2021 Influenza, High Dose Seasonal, Preservative Free 03/12/2025,02/23/2024 Moderna Covid-19 Vaccine 12+ 07/29/2020,06/27/19 21 Pfizer Covid-19 Vaccine 12+ 03/12/2025 Pneumococcal Conjugate PCV 20 05/24/2024 Tdap 02/11/2022 [...] 20 03/12/2025 3:34 PM EST Oxygen Saturation 98% 12/18/2024 1:45 PM EDT Inhaled Oxygen Concentration - - Weight 34.1 kg (75 lb 2 oz) 03/12/2025 3:[address] Height 139.7 cm (4' 7 ) 03/12/2025 3:34 PM EST Body Mass Index 17.46 03/12/2025 3:34 PM EST Plan of Treatment Upcoming Encounters Date Type Department Care Team (Late st Contact Info) Description 06/13/2025 2:15 PM EST Office Visit [facility] [address] [facility] [place] [address] Yeyo Montiel MD [address] [place], [place] [phone] Health Maintenance Due Date Last Done Comments Zoster Vaccines (1 of 2) 1961 RSV Patients and Patients Aged 60 years or older (1 - 1-dose 75+ series) 2017 COVID-19 Vaccine (5 - Moderna risk season) 2025 03/12/2025, 03/24/2021, 07/29/2020, Additional history exists Depression Screening 12/18/2025 12/18/2024, 11/15/19 24 SDOH Screening 12/18/2025 12/18/2024 Alcohol/Substance Use Screening 03/12/2026 03/12/2025 Tobacco Screening 03/12/2026 03/12/2025 Lipid Panel 03/13/2030 03/13/2025, 03/06/2021 DTaP/Tdap/Td Vaccines (2 - Td or Tdap) 02/12/2032 02/11/2022 Pneumococcal Vaccine: 50+ Years Completed 05/24/2024 Influenza Vaccine Completed 03/12/2025, , 02/11/2022, Additional history exists HIB Vaccines Aged Out No longer eligi [...] patient's age to complete this topic Meningococcal B Vaccine Aged Out No l onger eligible based on patient's age to complete [...] Procedure Name Priority Date/Time Associated Diagnosis Comments PTH, INTACT WITHOUT CALCIUM Routine 03/14/2025 1:37 PM EST Hypocalcemia PHOSPHATE ( PHOSPHORUS) Routine 03/14/2025 1:37 PM EST Hypocalcemia MAGNESIUM Routine 03/14/2025 1:37 PM EST Hypocalcemia TSH W/REFLEX TO FT4 Routine 03/14/2025 1:37 PM EST Hypocalcemia LIPID PANEL, STANDARD Routine 03/13/2025 10:21 AM EST Primary hypertension BASIC METABOLIC PANEL Routine 03/13/2025 10:21 AM EST Primary hypertension POCT INFLUENZA B (ID NOW RAPID MOLECULAR) Routine 03/12/2025 4:17 PM EST Acute cough POCT COVID-19 AG BALDW[place] ID NOW Routine 03/12/2025 4:17 PM EST Acute cough POCT INFLUENZA A (ID NOW RAPID MOLECULAR) Routine 03/12/2025 4:16 PM EST Acute cough from Last 3 Months Results * TSH with Reflex to Free T4 (03/14/2025 1:37 PM EST) TSH reflex Free T4 3.81 0.32 - 4.0 uIU/mL [facility] Blood Venous blood specimen / Unknown 03/14/2025 1:37 PM EST 03/14/2025 3:51 PM EST us Yeyo Fernandez MD LAB BLOOD ORDERABLES Final Result [facility] [address] [place] [phone] * Phosphate (As Phosphorus) (03/14/2025 1:37 PM EST) Phosphorus 3.2 2.7 - 4.5 mg/dL [facility] Blood Venous blood specimen / Unknown 03/14/2025 1:37 PM EST 03/14/2025 3:51 PM EST Yeyo Fernandez MD LAB BLOOD ORDERABLES Final Result Performing Organization Address [facility]/ZIP Co de Phone Number [facility] [address] [place] [phone] * PTH, Intact Without Calcium (03/14/2025 1:37 PM EST) Parathyroid Hormone, Intact 41.8 8.7 - 77.1 pg/mL [facility] Blood Venous blood specimen / Unknown 03/14/2025 1:37 PM EST 03/14/2025 3:51 PM EST Yeyo Fernandez MD LAB BLOOD ORDERABLES Final Result Performing Organization Address [facility] Co de Phone Number [facility] [address] [place] [phone] * Magnesium (03/14/2025 1:37 PM EST) Magnesium 2.1 1.6 - 2.6 mg/dL [facility] Blood Venous blood specimen / Unknown 03/14/2025 1:37 PM EST 03/14/2025 3:51 PM EST Yeyo Fernandez MD LAB BLOOD ORDERABLES Final Result Performing Organization Address [facility] Co de Phone Number [facility] [address] [place] [phone] * Lipid Panel, Standard (03/13/2025 10:21 AM EST) Triglycerides 68 <150 mg/dL [facility] Comment:Desirable Triglyceri de: less than 150 mg/dLBorderline High Triglyceride 150-199 mg/dLHigh Triglyceride: 200-499 mg/dLVery High Triglyceride: greater than or equal to 5OO mg/dL Cholesterol 116 <200 mg/dL [facility] Comment:Desirable Cholestero l: less than 200 mg/dLBorderline High Cholesterol: 200-239 mg/dLHigh Cholesterol: greater than 239 mg/dL LDL Cholesterol Calculated 60 <100 mg/dL [facility] Comment:Desirable LDL: less than 100 mg/dLNear Optimal/Above Optimal LDL: 110- 129 mg/dLBorderline High LDL: 130-159 mg/dLHigh LDL: 160-189 mg/dLVery High LDL: greater than or equal to 190 mg/dL HDL Cholesterol 43 >40 mg/dL [facility] Comment:Desirable HDL: great er than 40 mg/dL Note: This HDL assay may give artificially low results in patients with liver disease. Blood Venous blood specimen / Unknown 03/13/2025 10:21 AM EST 03/13/2025 11:01 AM EST us Yeyo Fernandez MD LAB BLOOD ORDERABLES Final Result [facility] [address], [place] [phone] * (ABNORMAL) Basic Metabolic Panel (03/13/2025 10:21 AM EST) Sodium 138 135 - 145 mmol/L [facility] Potassium 3.6 3.3 - 5.1 mmol/L [facility] Chloride 108 96 - 108 mmol/L [facility] Carbon Dioxide 26 22 - 29 mmol/L [facility] Anion Gap 8(L) 12 - 20 [facility] Urea Nitrogen (BUN) 17(H) 9 - 16 mg/dL [facility] Creatinine, Serum 0.58 0.5 - 1.4 mg/dL [facility] Estimated Glomerular Filt Rate >60 [facility] Comment:Chronic Kidney Disea se: Estimated GFR < 60 mL/min/1.15l0Gllini Kidney Disease: Estimated GFR < 15 mL/min/1.73m2 Glucose 92 60 - 115 mg/dL [facility] Calcium 7.4(L) 8.4 - 10.2 mg/dL [facility] Blood Venous blood specimen / Unknown 03/13/2025 10:21 AM EST 03/13/2025 11:01 AM EST Yeyo Fernandez MD LAB BLOOD ORDERABLES Final Result Performing Organization Address City/[facility]/ZIP Co de Phone Number [facility] [address] [place] [phone] * POCT Rapid Influenza B [place]DW[place] ID NOW (03/12/2025 4:17 PM EST) Influenza B Negative Negative, Indeterminate [facility] QC Media Lot # [id number] [facility] Lot# Expiration Date [facility] Swab 03/12/2025 4:17 PM EST us Yeyo Fernandez MD POINT OF CARE TEST EN TER/EDIT ORDERABLES Final Result Performing Organization Address City/[facility]/ZIP Co de Phone Number [facility] [address] [place] [phone] * POCT Rapid Covid-19 [place] ID NOW (03/12/2025 4:17 PM EST) Coronavirus Antigen PCR Negative Negative, Indeterminate, None Detected, Invalid, Specimen unsatisfactory for evaluation, Weakly Positive, 2+ QC Media Lot # [id number] Lot# Expiration Date Swab 03/12/2025 4:17 PM EST us Yeyo Fernandez MD POINT OF CARE TEST EN TER/EDIT ORDERABLES Final Result * POCT Rapid Influenza A [place] ID NOW (03/12/2025 4:16 PM EST) Influenza A Negative Negative, Indeterminate [facility] QC Media Lot # [id number] [facility] Lot# Expiration Date , [facility] Swab 03/12/2025 4:16 PM EST us Yeyo Fernandez MD POINT OF CARE TEST EN TER/EDIT ORDERABLES Final Result [facility] [address] [place] [phone] from Last 3 Months Insurance [facility] D[facility] COMPLETE [facility] STANDARD [facility] Advance Directives Documents on File Type Date Recorded Patient Ship/Rec/Doc Control Expl anation Advance Directives and Living Will 04/19/2024 Health Care Proxy 04/19/24 Care Teams Private Branch Exchange Operator Relationship Specialty Start Date End Date Yeyo Montiel MD [address] [place] [address] PCP - General Internal Medicine 03/05/21
--- OUTSIDE RECORDS SUMMARY | 2025-03-14 18:56 | XMS_ITS | Encounter Summary ---
Author Organization [employer] Address [address] [facility] 7t [place] [address] Care Team Providers Care Automotive Lot Attendant Name Role Phone Yeyo Montiel MD Primary Care Provide r Reason for Visit * Reason Onset Date Comments FYI 12/01/2023 Encounter Details Date Type Department Care Team ([facility] st Contact Info) Description 12/01/[address] [facility] [address] [place], [place] [phone] Yeyo Montiel MD [address] [place], [place] [phone] FYI Social History Tobacco Use Types Packs/Day [...] - 12/01/2023 3:57 PM EDT Tc from [facility] calling to inform that they receive the script for Oxigen, however the information provided by us doesn't not qualify pt to receive it. documented in this encounter Plan of Treatment Upcoming Encounters Date Type Department Care Team (Late st Contact Info) Description 06/13/2025 2:15 PM EST Office Visit [facility] [address] [place] [address] Yeyo Montiel MD [address] [place] [address] documented as of this encounter Visit Diagnoses Not on filedocumented in this encounter Additional Health Concerns Assessment Noted Time PHQ-9 Depression Total Score: 7 11/15/19 24 10:20 AM EDT documented as of this encounter Care Teams Automotive Lot Attendant Relationship Specialty Start Date End Date Yeyo Montiel MD [address] [place] [address] PCP - General Internal Medicine 03/05/21 documented as of this encounter
--- OUTSIDE RECORDS SUMMARY | 2025-03-14 18:56 | XMS_ITS | Encounter Summary ---
Author Organization [employer] Address [address] [facility] 7t [place] [address] Care Team Providers Care Public Health Teacher Name Role Phone Yeyo Montiel MD Primary Care Provide r Reason for Visit * Reason Onset Date Comments Appointment Request 08/24/2022 Encounter Details Date Type Department Care Team (Late Contact Info) Description 08/24/2022 Telephone [facility] [address] [place], [place] [phone] Yeyo Montiel MD [address] [place] [address] Appointment Request Social History Tobacco Use Types [...] brayden Rodriguez ) Please contact pt at [phone] documented in this encounter Plan of Treatment Upcoming Encounters Date Type Department Care Team (Late st Contact Info) Description 06/13/2025 2:15 PM EST Office Visit [facility] [address] [place] [address] Yeyo Montiel MD [address] [place] [address] documented as of this encounter Visit Diagnoses Not on filedocumented in this encounter Care Teams Public Health Teacher Relationship Specialty Start Date End Date Yeyo Montiel MD [facility] [place] [address] PCP - General Internal Medicine 03/05/21 documented as of this encounter
--- OUTSIDE RECORDS SUMMARY | 2025-03-14 18:56 | XMS_ITS | Encounter Summary ---
Author Organization [employer] Address [address] [facility] 7t [place] [address] Care Team Providers Care Professor Of Business Administration Name Role Phone Yeyo Montiel MD Primary Care Provide r Reason for Visit * Reason Onset Date Comments Durable Medical Equipment 03/08/2025 Encounter Details Date Type Department Care Team ([facility] st Contact Info) Description 03/08/2025 Telephone [facility] [address] [place], [place] [phone] Yeyo Montiel MD [address] [place] [address] Durable Medical Equipment Social History Tobacco Use [...] encounter Miscellaneous Notes * Telephone Encounter - Brittney Edwards RN - 03/13/2025 11:18 AM EST Faxed signed DME for bedpads to [facility] at [phone]. Confirmation received. * Telephone Encounter - Brittney Edwards RN - 03/12/2025 2:29 PM EST DME order was generated 12/18/24 but no note in chart about where it was sent or if it was sent. Re-generated order today, placed on PCP desk for signature. * Telephone Encounter - Fritz Duke - 03/08/2025 4:27 PM EST Tc from pt daughter requesting a a call back to verify status on bed pads. She has not received a call back nor an update on where DME may have been sent, Please contact daughter at [phone]. (Surinamese Speaker) documented in this encounter Plan of Treatment Upcoming Encounters Date Type Department Care Team ([facility] st Contact Info) Description 06/13/2025 2:15 PM EST Office Visit [facility] [address] [place] [address] Yeyo Montiel MD [address] [place] [address] documented as of this encounter Visit Diagnoses Not on filedocumented in this encounter Additional Health Concerns Assessment Noted Time PHQ-9 Depression Total Score: 7 11/15/19 24 10:20 AM EDT documented as of this encounter Care Teams Professor Of Business Administration Relationship Specialty Start Date End Date Yeyo Montiel MD [address] [place] [address] PCP - General Internal Medicine 03/05/21 documented as of this encounter
--- OUTSIDE RECORDS SUMMARY | 2025-03-14 18:56 | XMS_ITS | Encounter Summary ---
Author Organization [employer] Address [address] [facility] 7t [place] [address] Care Team Providers Care Air Press Operator Name Role Phone Yeyo Montiel MD Primary Care Provide r Reason for Visit * Reason Onset Date Comments chart prep 03/11/2025 Encounter Details Date Type Department Care Team ([facility] st Contact Info) Description 03/11/2025 Telephone [facility] [address] [place], [place] [phone] Yeyo Montiel MD [address] [place], [place] [phone] chart prep Social History Tobacco Use Types Packs/Day Years [...] encounter Miscellaneous Notes * Telephone Encounter - Deepak Tomas MA - 03/11/2025 1:43 PM EST Chart Prep Labs: not applicable Images: not applicable Referrals: not applicable Vaccines due: Covid and Flu Screenings: not applicable Overdue care gaps: SBIRT documented in this encounter Plan of Treatment Upcoming Encounters Date Type Department Care Team (Late st Contact Info) Description 06/13/2025 2:15 PM EST Office Visit [facility] MED[facility]INE [address] [place] [address] Yeyo Montiel MD [address] [place] [address] documented as of this encounter Visit Diagnoses Not on filedocumented in this encounter Additional Health Concerns Assessment Noted Time PHQ-9 Depression Total Score: 7 11/15/19 24 10:20 AM EDT documented as of this encounter Care Teams Air Press Operator Relationship Specialty Start Date End Date Yeyo Montiel MD [address] [place] [address] PCP - General Internal Medicine 03/05/21 documented as of this encounter
--- OUTSIDE RECORDS SUMMARY | 2025-03-14 18:56 | XMS_ITS | Encounter Summary ---
Author Organization [employer] Address 75 [facility] 7t [place] [address] Care Team Providers Care Intelligence Director Name Role Phone Yeyo Montiel MD Primary Care Provide r Reason for Visit * Reason Onset Date Comments Results 03/13/2025 Lab Orders 03/13/2025 Encounter Details Date Type Department Care Team ([facility] st Contact Info) Description 03/13/2025 Results Follow-Up [facility] MEDICINE [address] [place] [address] Yeyo Montiel MD [address] [place] [address] Basic Metabolic Panel, Lipid Panel, Standard, POCT Rapid Covid-19 [place] ID NOW, Additional followed-up results: 2 Social History Tobacco Use Types Packs/Day Years [...] Telephone Encounter - Brittney Edwards RN - 03/14/2025 11:24 AM EST Telephone call to pt's daughter Christal (HIPAA compliant). Informed that calcium level is low and ordered additional labs that should be urgently completed. Daughter states she will take pttomorrow. Advised her once resulted, nurses will call back with details on the plan. Daughter verbalized understanding, no further questions. * Telephone Encounter - Brittney Edwards RN - 03/14/2025 11:21 AM EST ----- Message from Yeyo Fernandez MD sent at 03/13/2025 4:58 PM EST ----- Patient's Calcium is low (7.4) Please ask daughter to have a repeat. Ionized Calcium, and other labs (placed order ) to confirm diagnosis. I am also ordering an Albumin level. Once the results are back, please send me an urgent task. ----- Message ----- From: Mariann Beard MA Sent: 03/12/2025 4:17 PM EST To: Yeyo Fernandez MD * Result Encounter Note - Yeyo Fernandez MD - 03/13/2025 4:58 PM EST Patient's Calcium is low (7.4) Please ask daughter to have a repeat. Ionized Calcium, and other labs (placed order ) to confirm diagnosis. I am also ordering an Albumin level. Once the results are back, please send me an urgent task. documented in this encounter Plan of Treatment Upcoming Encounters Date Type Department Care Team (Late st Contact Info) Description 06/13/2025 2:15 PM EST Office Visit [facility] MEDICINE [address] [place] [address] [phone] Yeyo Montiel MD [address] [place] [address] Scheduled Orders Name Type Priority Associated Diagnoses Orde r Schedule Calcium, Ionized Lab Routine Hypocalcemia Expected: 03/13/2025 (Approximate), Expires: 03/13/2026 Vitamin D, 25-Hydroxy, Total, Immunoassay Lab Routine Hypocalcemia Expected: 03/13/2025 (Approximate), Expires: 03/13/2026 documented as of this encounter Procedures Procedure Name Priority Date/Time Associated Diagnosis Comments TSH W/REFLEX TO FT4 Routine 03/14/2025 1 :37 PM EST Hypocalcemia PHOSPHATE ( PHOSPHORUS) Routine 03/14/2025 1:37 PM EST Hypocalcemia PTH, INTACT WITHOUT CALCIUM Routine 03/14/2025 1:37 PM EST Hypocalcemia MAGNESIUM Routine 03/14/2025 1:37 PM EST Hypocalcemia documented in this encounter Results * TSH with Reflex to Free T4 (03/14/2025 1:37 PM EST) TSH reflex Free T4 3.81 0.32 - 4.0 uIU/mL [facility] Blood Venous blood specimen / Unknown 03/14/2025 1:37 PM EST 03/14/2025 3:51 PM EST Yeyo Fernandez MD LAB BLOOD ORDERABLES Final Result Performing Organization Address [facility]/ZIP Co de Phone Number [facility] [address] [place] [phone] * PTH, Intact Without Calcium (03/14/2025 1:37 PM EST) Parathyroid Hormone, Intact 41.8 8.7 - 77.1 pg/mL [facility] Blood Venous blood specimen / Unknown 03/14/2025 1:37 PM EST 03/14/2025 3:51 PM EST Yeyo Fernandez MD LAB BLOOD ORDERABLES Final Result Performing Organization Address City/[facility]/ZIP Co de Phone Number [facility] [address] [place] [phone] * Phosphate (As Phosphorus) (03/14/2025 1:37 PM EST) Phosphorus 3.2 2.7 - 4.5 mg/dL [facility] Blood Venous blood specimen / Unknown 03/14/2025 1:37 PM EST 03/14/2025 3:51 PM EST Yeyo Fernandez MD LAB BLOOD ORDERABLES Final Result Performing Organization Address City/[facility]/ZIP Co de Phone Number [facility] [address] [place] [phone] * Magnesium (03/14/2025 1:37 PM EST) Magnesium 2.1 1.6 - 2.6 mg/dL [facility] Blood Venous blood specimen / Unknown 03/14/2025 1:37 PM EST 03/14/2025 3:51 PM EST us Yeyo Fernandez MD LAB BLOOD ORDERABLES Final Result [facility] [address] [place] [phone] documented in this encounter Visit Diagnoses Diagnosis Hypocalcemia- Primary documented in this encounter Additional Health Concerns Assessment Noted Time PHQ-9 Depression Total Score: 7 11/15/19 24 10:20 AM EDT documented as of this encounter Care Teams Intelligence Director Relationship Specialty Start Date End Date Yeyo Montiel MD [address] [place] [phone] PCP - General Internal Medicine 03/05/21 documented as of this encounter
--- OUTSIDE RECORDS SUMMARY | 2025-03-14 18:56 | XMS_ITS | Encounter Summary ---
Author Organization [employer] Address [address] [facility] 7t [place] [address] Care Team Providers Care Trade Specialist Name Role Phone Yeyo Montiel MD Primary Care Provide r Encounter Details Date Type Department Care Team (Latest Contact Info) Description 03/12/2025 Travel Social History Tobacco Use Types Packs/Day [...] as of this encounter Plan of Treatment Upcoming Encounters Date Type Department Care Team (Late st Contact Info) Description 06/13/2025 2:15 PM EST Office Visit [facility] MEDICINE [address] [place] [phone] Yeyo Montiel MD [address] [place] [phone] documented as of this encounter Visit Diagnoses Not on filedocumented in this encounter Additional Health Concerns Assessment Noted Time PHQ-9 Depression Total Score: 7 11/15/19 24 10:20 AM EDT documented as of this encounter Care Teams Trade Specialist Relationship Specialty Start Date End Date Yeyo Montiel MD [address] [place] [phone] PCP - General Internal Medicine 03/05/21 documented as of this encounter
--- OUTSIDE RECORDS SUMMARY | 2025-03-14 18:56 | XMS_ITS | Encounter Summary ---
Author Organization [employer] Address [address] [facility] 7t [place] [address] Care Team Providers Care Plug Wirer Name Role Phone Yeyo Montiel MD Primary Care Provide r Encounter Details Date Type Department Care Team (Late st Contact Info) Description 08/16/2022 Abstract [facility] MEDICINE [address] [place] [address] [phone] Yeyo Montiel MD [address] [place] [address] [phone] Social History Tobacco Use Types Packs/Day Years [...] 06/13/2025 2:15 PM EST Office Visit [facility] [address] [place] [address] [phone] Yeyo Montiel MD [address] [place] [address] [phone] documented as of this encounter Visit Diagnoses Not on filedocumented in this encounter Care Teams Plug Wirer Relationship Specialty Start Date End Date Yeyo Montiel MD [address] [place] [phone] PCP - General Internal Medicine 03/05/21 documented as of this encounter
--- OUTSIDE RECORDS SUMMARY | 2025-03-14 18:56 | XMS_ITS | Encounter Summary ---
Author Organization [employer] Address [address] [facility] 7t [place] [address] Care Team Providers Care Tram Operator Name Role Phone Yeyo Montiel MD Primary Care Provide r Reason for Visit * Reason Onset Date Comments r/s appt 03/11/2025 Encounter Details Date Type Department Care Team ([facility] st Contact Info) Description 03/11/2025 Telephone [facility] [address] [place], [place] [phone] Yeyo Montiel MD [address] [place] [address] r/s appt Social History Tobacco Use Types Packs/Day Years [...] Encounter - Deepak Tomas MA - 03/11/2025 12:23 PM EST T/C to pt. Sopke to pt's daughter Christal to r/s appointment scheduled for 03/19/25 due to provider out. Christal agreed to come in tomorrow 03/12/25 at 3:15pm. documented in this encounter Plan of Treatment Upcoming Encounters Date Type Department Care Team (Late st Contact Info) Description 06/13/2025 2:15 PM EST Office Visit [facility] [address] [place] [address] Yeyo Montiel MD 230 [place] [address] documented as of this encounter Visit Diagnoses Not on filedocumented in this encounter Additional Health Concerns Assessment Noted Time PHQ-9 Depression Total Score: 7 07/23/20 24 10:20 AM EDT documented as of this encounter Care Teams Tram Operator Relationship Specialty Start Date End Date Yeyo Montiel MD [address] [place] [phone] PCP - General Internal Medicine 03/05/21 documented as of this encounter
--- OUTSIDE RECORDS SUMMARY | 2025-03-14 18:56 | XMS_ITS | Encounter Summary ---
Author Organization [employer] Address [address] [facility] 7t [place] [address] Care Team Providers Care Flat Grinder Operator Name Role Phone Yeyo Montiel MD Primary Care Provide r Reason for Visit * Reason Comments Med Refill Encounter Details Date Type Department Care Team ([facility] st Contact Info) Description 03/09/2025 Refill [facility] MEDICINE [address] [place], [place] [phone] Yeyo Montiel MD [address] [place], [place] [phone] Primary hypertension Social History Tobacco Use Types Packs/Day Years [...] Description 06/13/2025 2:15 PM EST Office Visit [facility] MEDICINE [address] [place] [address] Yeyo Montiel MD [address] [place] [address] documented as of this encounter Visit Diagnoses Diagnosis Primary hypertension Unspecified essential hypertension documented in this encounter Additional Health Concerns Assessment Noted Time PHQ-9 Depression Total Score: 7 11/15/19 24 10:20 AM EDT documented as of this encounter Care Teams Flat Grinder Operator Relationship Specialty Start Date End Date Yeyo Montiel MD [address] [place] [address] PCP - General Internal Medicine 03/05/21 documented as of this encounter
--- OUTSIDE RECORDS SUMMARY | 2025-03-14 18:56 | XMS_ITS ---
Author Name Daniel ROGERS, MRS. [place] Address [address] [place] [address] Phone [phone] [facility] Care Team Providers Care Jigger Machine Operator Name Role Phone Geni Sanchez Unavailable [phone] [facility] Unavailable DARYL HARLEY Unavailable DULJESSENIA TIMUR Unavailable [phone] LATOSHA NEUMANN Unavailable [phone] Orders, [facility] Unavailable [phone] Reason for Referral Not Available Allergies, adverse [...] 296ML No Data Available 2023-01-26 2023-07-18 ENEMA [id number] 133ML TAKE 1 ENEMA RE CTALLY SINGLE [...] Continue takin g latanoprost as prescribedF/u w/ armhole presser to check IOP Other problems related to [...] (do not use for phone, instead use 22181-70) [facility]2022 Malignant neoplasm of pylori c antrumEssential (primary) hypertensionHyperlipidemia, unspecifiedUnspecified glaucomaGastroparesisDepression, unspecifiedGastro-esophageal reflux disease without esophagitis New patient,40-59min; chronic exacerbation, 2 stable chronic or 1 acute illness add add modifier 95 for video (do not use for phone, instead use 71919-11) [facility] 03[place]10/2022 New patient,40-59min; chronic exacerbation, 2 stable chronic or 1 acute illness add add modifier 95 for video (do not use for phone, instead use 71969-17) [facility] 03/10/2022 New patient,40-59min; chronic exacerbation, 2 stable chronic or 1 acute illness add add modifier 95 for video (do not use for phone, instead use 48767-71) [facility] 03/10/2022 New patient,40-59min; chronic exacerbation, 2 stable chronic or 1 acute illness add add modifier 95 for video (do not use for phone, instead use 50515-71) [facility] 03/10/2022 New patient,40-59min; chronic exacerbation, 2 stable chronic or 1 acute illness add add modifier 95 for video (do not use for phone, instead use 26902-25) [facility] 03/10/2022 New patient,40-59min; chronic exacerbation, 2 stable chronic or 1 acute illness add add modifier 95 for video (do not use for phone, instead use 43510-46) [facility] 03/10/2022 New patient,40-59min; chronic exacerbation, 2 stable chronic or 1 acute illness add add modifier 95 for video (do not use for phone, instead use 53268-51) [facility] 03/10/2022 New patient,40-59min; chronic exacerbation, 2 stable chronic or 1 acute illness add add modifier 95 for video (do not use for phone, instead use 08337-11) [facility] 03/10/2022 New patient,40-59min; chronic exacerbation, 2 stable chronic or 1 acute illness add add modifier 95 for video (do not use for phone, instead use 19338-75) [facility] 03/10/2022 No Data Available [facility] 06/[place]/2022 Malignant neoplasm of pylori c antrumEssential (primary) hypertensionHyperlipidemia, unspecifiedUnspecified glaucomaGastroparesisMajor depressive disorder, single episode, in partial remissionGastro-esophageal reflux disease without esophagitis No Data Available [facility] 06/01/2022 Estab. patient 30-39min; chronic exacerbation, 2 stable chronic or 1 acute illness add add modifier 95 for video, (do not use for phone, instead use 19907-65) [facility] 06/24/2022 Malignant neoplasm of pylori c antrumEssential (primary) hypertensionHyperlipidemia, unspecifiedUnspecified glaucomaGastroparesisMajor depressive disorder, single episode, in partial remissionGastro-esophageal reflux disease without esophagitisAnorexiaGastric ulcer, unsp as acute or chronic, w/o hemor or perf Estab. patient 30-39min; chronic exacerbation, 2 stable chronic or 1 acute illness add add modifier 95 for video, (do not use for phone, instead use 50420-14) [facility] 06/24/2022 Estab. patient 30-39min; chronic exacerbation, 2 stable chronic or 1 acute illness add add modifier 95 for video, (do not use for phone, instead use 59757-31) [facility] [place] 06/24/2022 Estab. patient 30-39min; chronic exacerbation, 2 stable chronic or 1 acute illness add add modifier 95 for video, (do not use for phone, instead use 72080-20) [facility] [place] 06/24/2022 Estab. patient 30-39min; chronic exacerbation, 2 stable chronic or 1 acute illness add add modifier 95 for video, (do not use for phone, instead use 90376-88) [facility] Estab. patient 30-39min; chronic exacerbation, 2 stable chronic or 1 acute illness add add modifier 95 for video, (do not use for phone, instead use 30891-24) [facility] Estab. patient 30-39min; chronic exacerbation, 2 stable chronic or 1 acute illness add add modifier 95 for video, (do not use for phone, instead use 64320-99) [facility] 06/24/2022 Estab. patient 30-39min; chronic exacerbation, 2 stable chronic or 1 acute illness add add modifier 95 for video, (do not use for phone, instead use 77585-00) [facility] [place] 01/20/2023 Malignant neoplasm of pylori c antrumEssential [...] (do not use for phone, instead use 18188-77) [facility] 01/20/2023 Estab. patient 30-39min; chronic exacerbation, 2 stable chronic or 1 acute illness add add modifier 95 for video, (do not use for phone, instead use 33632-04) [facility] 01[place]20/20[place] Estab. patient 30-39min; chronic exacerbation, 2 stable chronic or 1 acute illness add add modifier 95 for video, (do not use for phone, instead use 25777-38) [facility] 01[place]20/20[place] Estab. patient 30-39min; chronic exacerbation, 2 stable chronic or 1 acute illness add add modifier 95 for video, (do not use for phone, instead use 12445-78) [facility] 01[place] Estab. patient 30-39min; chronic exacerbation, 2 stable chronic or 1 acute illness add add modifier 95 for video, (do not use for phone, instead use 66645-80) [facility] 01[place] Estab. patient 30-39min; chronic exacerbation, 2 stable chronic or 1 acute illness add add modifier 95 for video, (do not use for phone, instead use 19466-91) [facility] 01[place]20[place] Estab. patient 30-39min; chronic exacerbation, 2 stable chronic or 1 acute illness add add modifier 95 for video, (do not use for phone, instead use 10791-35) [facility] 07[place]18[place]20[place] Malignant neoplasm of pylori c [...] (do not use for phone, instead use 84582-18) [facility]18[place] Estab. patient 30-39min; chronic exacerbation, 2 stable chronic or 1 acute illness add add modifier 95 for video, (do not use for phone, instead use 84510-81) [facility] 07[place]18[place] Estab. patient 30-39min; chronic exacerbation, 2 stable chronic or 1 acute illness add add modifier 95 for video, (do not use for phone, instead use 94839-05) [facility] 07[place]18[place] Estab. patient 30-39min; chronic exacerbation, 2 stable chronic or 1 acute illness add add modifier 95 for video, (do not use for phone, instead use 20128-49) [facility] 07[place]18[place] Estab. patient 30-39min; chronic exacerbation, 2 stable chronic or 1 acute illness add add modifier 95 for video, (do not use for phone, instead use 46775-86) [facility] 07[place]18[place] Estab. patient 30-39min; chronic exacerbation, 2 stable chronic or 1 acute illness add add modifier 95 for video, (do not use for phone, instead use 62048-95) [facility] 07[place]18[place] Estab. patient 30-39min; chronic exacerbation, 2 stable chronic or 1 acute illness add add modifier 95 for video, (do not use for phone, instead use 50535-19) [facility] 07[place]18[place] Estab. patient 30-39min; chronic exacerbation, 2 stable chronic or 1 acute illness add add modifier 95 for video, (do not use for phone, instead use 14361-53) [facility] 07[place]18[place] Estab. patient 30-39min; chronic exacerbation, 2 stable chronic or 1 acute illness add add modifier 95 for video, (do not use for phone, instead use 30394-63) [facility] 07[place]18[place] Estab. patient 30-39min; chronic exacerbation, 2 stable chronic or 1 acute illness add add modifier 95 for video, (do not use for phone, instead use 62490-54) [facility] 04[place]2024 Malignant neoplasm of pylori c [...] (do not use for phone, instead use 68020-77) [facility] 04[place] Estab. patient 30-39min; chronic exacerbation, 2 stable chronic or 1 acute illness add add modifier 95 for video, (do not use for phone, instead use 92441-79) [facility] 04[place] Estab. patient 30-39min; chronic exacerbation, 2 stable chronic or 1 acute illness add add modifier 95 for video, (do not use for phone, instead use 78467-11) [facility] 04[place] Estab. patient 30-39min; chronic exacerbation, 2 stable chronic or 1 acute illness add add modifier 95 for video, (do not use for phone, instead use 57911-76) [facility] 04[place] Estab. patient 30-39min; chronic exacerbation, 2 stable chronic or 1 acute illness add add modifier 95 for video, (do not use for phone, instead use 08373-48) [facility] 04[place] Estab. patient 30-39min; chronic exacerbation, 2 stable chronic or 1 acute illness add add modifier 95 for video, (do not use for phone, instead use 67974-49) [facility] 04[place] Estab. patient 30-39min; chronic exacerbation, 2 stable chronic or 1 acute illness add add modifier 95 for video, (do not use for phone, instead use 86165-36) [facility] 04[place] Estab. patient 30-39min; chronic exacerbation, 2 stable chronic or 1 acute illness add add modifier 95 for video, (do not use for phone, instead use 84544-60) [facility] 04[place] Estab. patient 30-39min; chronic exacerbation, 2 stable chronic or 1 acute illness add add modifier 95 for video, (do not use for phone, instead use 11795-66) [facility] 04[place] Estab. patient 30-39min; chronic exacerbation, 2 stable chronic or 1 acute illness add add modifier 95 for video, (do not use for phone, instead use 27280-93) [facility] 04[place] Estab. patient 10-29min; 1 minor problem; add add modifier 95 for video, modifier 93 for phone [facility]2024 Viral intestinal infection, unspecifiedPneumonia, unspecified organismEncntr for f/u exam aft trtmt for cond oth than malig neoplmOther problems related to medical facilities and other health care Estab. patient 10-29min; 1 minor problem; add add modifier 95 for video, modifier 93 for phone [facility] Estab. patient 10-29min; 1 minor problem; add add modifier 95 for video, modifier 93 for phone [facility] Estab. patient 10-29min; 1 minor problem; add add modifier 95 for video, modifier 93 for phone [facility] 12[place]11/20[place] Estab. patient 10-29min; 1 minor problem; add add modifier 95 for video, modifier 93 for phone [facility] [place] 12/[place]/20[place] RN, CN or CP time with patient by phone; use with 1111F, BP, A1c or other CPTII codes [facility] [place] 12/03/2024 Encounter for other specifie d aftercare RN, CN or CP time with patient by phone; use with 1111F, BP, A1c or other CPTII codes [facility] [place] 12/03/2024 Vital Signs Date of Collection Vitals [...] (do not use for phone, instead use 63237-52) [id number] 2022-03-10 No Data Available No Data Availa [...] Available No Data Available No Data Available [id number] 2022-06-01 No Data Available No Data Available Pain Assessment - Pain Documented on a Pain Scale (1125F) 1125F 2022-06-01 No Data Available No Data Latasha ilable Estab. patient 30-39min; chronic exacerbation, 2 stable chronic or 1 acute illness add add modifier 95 for video, (do not use for phone, instead use 16914-71) [id number] 2022-06-24 No Data Available No Data Availa [...] (do not use for phone, instead use 96151-96) [id number] 2023-01-20 No Data Available No Data Availa [...] (do not use for phone, instead use 74608-74) [id number] 2023-07-18 No Data Available No Data Availa [...] (do not use for phone, instead use 93494-02) [id number] 2024-04-30 No Data Available No Data Availa [...] 95 for video, modifier 93 for phone 46535 2024-12-11 No Data Available No Data Availa [...] 1111F, BP, A1c or other CPTII codes 62672 2024-12-03 No Data Available No Data Avai [...] levels yearlyContinue taking latanoprost as prescribedF/u w/ armhole presser to check IOPContinue taking metoclopramide as prescribedFollowed by PCPContinue taking mirtazapine as prescribedContinue taking pantoprazole as prescribedContinue Lifestyle modifications, HOB elevation, avoid spicy food, caffeine, soda 2022-06-01 07:30:36 Televideo 20-29min; 1 stable chronic or 2 minor; add modifier 95Pain Assessment - Pain Documented (1125F)Continue to see PCP. Follow-up with Khadjiah as needed for any acute or disease [...] levels yearlyContinue taking latanoprost as prescribedF/u w/ armhole presser to check IOPContinue taking metoclopramide as prescribedDC [...] levels yearlyContinue taking latanoprost as prescribedF/u w/ armhole presser to check IOPContinue taking metoclopramide as prescribedDC [...] obtained (3008F)Continue to see PCP. Follow-up with [facility] as needed for any acute or disease [...] levels yearlyContinue taking latanoprost as prescribedF/u w/ armhole presser to check IOPContinue taking metoclopramide as prescribedDC [...] with PCP.Continue taking latanoprost as prescribedF/u w/ armhole presser to check IOPCONTINGENCY PLANDementia Member to call [...] x5 daysLimit extra stimulation.DEMENTIA CONTINGENCY PLANLast updated: 04/30/2024[facility] to call for the following symptoms: Aggression/ Delirium/ WithdrawnPlanned intervention: Place order for urinalysis and culture; family to take sample to lab/ Encourage increased fluid intake/ Ask about last bowel movement/ Assess for UTI symptoms; if present, start Macrobid 100mg BID x5 days/ Limit extra stimulation.RESPIRATORY INFECTION CONTINGENCY PLANLast updated: 12/11/2024[facility] to call for the following symptoms: [...] Patient Education to avoid future hospitalization: Call [facility] if symptoms of illness develop. 2024-12-11 Continue [...] other telecommunications tools. 2024-12-11 [facility]: [facility] date: 11/30/24Reason for hospitalization: [...]
--- OUTSIDE RECORDS SUMMARY | 2025-03-14 18:56 | XMS_ITS | Encounter Summary ---
Author Organization [employer] Address [address] [facility] [address] [place] [address] Care Team Providers Care Yacht Hand Name Role Phone Yeyo Montiel MD Primary Care Provide r Reason for Visit * Reason Onset Date Comments Durable Medical Equipment 12/28/2023 Encounter Details Date Type Department Care Team ([facility] st Contact Info) Description 12/28/2023 Telephone [facility] [address] [place], [place] [phone] Yeyo Montiel MD [address] [place] [address] Durable Medical Equipment Social History Tobacco Use [...] - 12/28/2023 2:31 PM EDT Tc from [place] with [facility] calling in regards to DME scripts for hospital bed a [place] stating pcp faxed script to an out of network medical supply vendor and so [facility] Is requestingscript be faxed to them to have equipment sent to an in network vendor. If any questions you can contact [facility] at [phone]. . documented in this encounter Plan of Treatment Upcoming Encounters Date Type Department Care Team (Late st Contact Info) Description 06/13/2025 2:15 PM EST Office Visit [facility] [address] [place] [address] Yeyo Montiel MD [address] [place] [address] documented as of this encounter Visit Diagnoses Not on filedocumented in this encounter Additional Health Concerns Assessment Noted Time PHQ-9 Depression Total Score: 7 11/15/19 24 10:20 AM EDT documented as of this encounter Care Teams Yacht Hand Relationship Specialty Start Date End Date Yeyo Montiel MD [address] [place] [address] PCP - General Internal Medicine 03/05/21 documented as of this encounter
--- OUTSIDE RECORDS SUMMARY | 2025-03-14 18:56 | XMS_ITS | Encounter Summary ---
Author Organization [employer] Address [address] [facility] [address] [place] [address] Care Team Providers Care Refueler Name Role Phone Yeyo Montiel MD Primary Care Provide r Reason for Visit * Reason Comments Med Refill Encounter Details Date Type Department Care Team ([facility] st Contact Info) Description 12/12/[address] [facility] [address] [place], [place] [phone] Danyell Gonzales, ANP [address] [place], [place] [phone] Social History Tobacco Use Types Packs/Day Years [...] 2:15 PM EST Office Visit [facility] [address] [place] [address] Yeyo Montiel MD [address] [place] [address] documented as of this encounter Visit Diagnoses Not on filedocumented in this encounter Additional Health Concerns Assessment Noted Time PHQ-9 Depression Total Score: 7 11/15/19 24 10:20 AM EDT documented as of this encounter Care Teams Refueler Relationship Specialty Start Date End Date Yeyo Montiel MD [address] [place] [id number] PCP - General Internal Medicine 03/05/21 documented as of this encounter
--- OUTSIDE RECORDS SUMMARY | 2025-03-14 18:57 | XMS_ITS | Encounter Summary ---
Author Organization [employer] Address [address] [facility] [address] [place] [address] Care Team Providers Care Automatic Mold Sander Name Role Phone Yeyo Montiel MD Primary Care Provide r Reason for Visit * Reason Onset Date Comments Med Refill 05/28/2024 Encounter Details Date Type Department Care Team ([facility] st Contact Info) Description 05/28/2024 Telephone [facility] [address] [place], [place] [phone] Yeyo Montiel MD [address] [place], [place] [phone] Med Refill Social History Tobacco Use Types Packs/Day Years [...] encounter Miscellaneous Notes * Telephone Encounter - Kayla Farias LPN - 05/28/2024 9:27 AM EST Medication pended to PCP. * Telephone Encounter - Veronika Francis - 05/28/2024 8:47 AM EST TC from pt requesting medication refill. Medications needing refill : mirtazapine (Remeron) 15 MG tablet To be sent to: [id number] documented in this encounter Plan of Treatment Upcoming Encounters Date Type Department Care Team (Late st Contact Info) Description 06/13/2025 2:15 PM EST Office Visit [facility] [address] [place] [address] Yeyo Montiel MD [address] [place] [address] documented as of this encounter Visit Diagnoses Not on filedocumented in this encounter Additional Health Concerns Assessment Noted Time PHQ-9 Depression Total Score: 7 11/15/19 24 10:20 AM EDT documented as of this encounter Care Teams Automatic Mold Sander Relationship Specialty Start Date End Date Yeyo Montiel MD [address] [place] [address] PCP - General Internal Medicine 03/05/21 documented as of this encounter
[2025-03-20 08:59] LABS: VITAMIN D (1,25 OH) D3 51 pg/mL; Vit D (1,25-Dihydroxy) Total 51 pg/mL (18-72); Vitamin D (1,25 OH) D2 <8 pg/mL
== END 2025-03-14 13:25 | disposition home or self-care (01) ==
LOC: HO.HHCL 13:24
PROVIDERS: PCP Internal Medicine; Visit Provider Internal Medicine
DX: E83.51 Hypocalcemia (principal); Z13.21 Encounter for screening for nutritional disorder
CPT/HCPCS: 36415; 82330; 82652; 83735; 83970; 84100; 84443